=== PATIENT | male | born 1995 | race Hispanic/Latino ===

== ENCOUNTER 2022-10-24 23:03 | Emergency (ER) | payer SELFPAY ==
--- OUTSIDE RECORDS SUMMARY | 2022-10-24 23:07 | XMS REPORT | Continuity of Care Document ---
:1995 Author Organization [facility] t Address [address] [place] [address] [address] [place] [address] Care Team Providers Name Role Phone PCP, PATIENT DOES NOT HAVE A Primary Care Physician UnavailJOSY Whatley Attending Clinician Unavailable Josy Freitas Attending Clinician MANUEL GRANDE Attending Clinician Unavailable Manuel Grande MD Attending Clinician AMBER SINGH Attending Clinician Unavailable Amber Singh DO Attending Clinician MANUEL GRANDE Admitting Clinician Unavailable Payers Payer Name Policy Type Policy Number Effective Date Expiration Date Angela cole WEBTPA [id number] 2021 00:00:00 Problems Condition Condition Condition Status Onset Resolution Last Treating Co mments Source Name Details Category Date Date Treatment Clinician Date No known No known Disease Unive rs active active ity of problems problems [facility] Allergies, Adverse Reactions, Alerts Allergy Allergy Status Severity Reaction(s) Onset Inactive Treating Comm ents Source Name Type Date Date Clinician Steroids Propensi Active (Not ty to -06 Checked) adverse 00:00: reaction 00 to drug NEUROMUS Drug Active Unknown-Cmnt 2012-03 Un selvin CULAR Class 2-09 ity of BLOCKERS 00:00: [place] , 00 Medical STEROIDA Branch L Neuromus Propensi Active Unknown - 2012-03 Uni vers cular ty to See comments 2-09 ity of Blockers adverse 00:00: [place] , reaction 00 Medical Steroida s Branch l Social History Social Habit Start Date Stop Date Quantity Comments Source Exposure to 2021-11-05 2021-11-15 Not sure [facility] SARS-CoV-2 (event) 00:00:00 16:25:00 Medica l Branch Sex Assigned At [birth year] [facility] y of [place] 00:00:00 00:00:00 Medical Branch Smoking Status Start Date Stop Date Source Tobacco smoking consumption [facility] Medical unknown Branch Medications Ordered Filled Start Stop Current Ordering Indication Dosage Frequency Signature Comments Components Source Medication Medication Date Date Medication? Clinician (SIG) Name Name morpHINE (4 2021- No 4mg 4 mg, Slow Univers mg/mL) 11-14 IV Push, ity of injection 4 09:45: 09:40 [place]CE[place] 1 [place] mg 00 :00 dose, On Medical 11/14/21 Branch at 0445, STAT ketorolac 2021- No 15mg 15 mg, Unive rs (TORADOL) 11-14 Slow IV ity of injection 09:45: 09:39 Push, [place] 15 mg 00 :00 ONCE, 1 Medical dose, On Branch 11/14/21 at 0445, BECKY iohexol 2021- No [id number] 80mL 80 mL, Un selvin (OMNIPAQUE 11-14 Intravenou it y of 350 09:02: 09:02 s, ONCE, 1 [place] BULK-100 00 :00 dose, On Medical mL) 11/14/21 Branch injection at 0415, 80 mL Routine cefTRIAXone 2021- No 1000mg 1,000 mg, Univers (ROCEPHIN) 11-14 IV ity of 1,000 mg in 08:15: 08:56 Piggyback, [place] NaCl 0.9% 00 :31 ONCE, 1 Medical (NS) 50 mL dose, On [facility] h MINI-BAG Wed11/14/21 at 0315, Administer over 30 Minutes, 50 mL
R vern for Anti-Infec tive: Documented Infection< br>Documen lillie Infection Site: Skin / Soft Tissue
Duration of Therapy: Other (see Comments) sulfamethox Yes [id number] 1{tbl} Take 1 Univers azole-trime - tablet by ity of thoprim 00:00: mouth in [place] 800-160 mg 00 the Medical per tablet morning Branch and 1 tablet in the evening. sulfamethox Yes [id number] 1{tbl} Take 1 Univers azole-trime 11-14 tablet by ity of thoprim 00:00: mouth in [place] 800-160 mg 00 the Medical per tablet morning Branch and 1 tablet in the evening. cephALEXin 2021- No [id number] 500mg Take 1 Univers (KEFLEX) 11-14 capsule by ity of 500 mg 00:00: 04:59 mouth 4 [place] capsule 00 :00 (four) Medical times Branch daily for 10 days. cephALEXin 2021- No [id number] 500mg Take 1 Univers (KEFLEX) 11-14 capsule by ity of 500 mg 00:00: 04:59 mouth 4 [place] capsule 00 :00 (four) Medical times Branch daily for 10 days. acetaminoph 2021- No [id number] 1{tbl} Take 1 U nivers en-codeine 11-14 tablet by ity of 300-30 mg 00:00: 04:59 mouth [place] tablet 00 :00 every 6 Medical (six) Branch hours as needed for Pain (scale 1-3) for up to 7 days. Indication s: acute pain acetaminoph 2021- No 4647 1{tbl} Take 1 U nivers en-codeine 11-14 tablet by ity of 300-30 mg 00:00: 04:59 mouth [place] tablet 00 :00 every 6 Medical (six) Branch hours as needed for Pain (scale 1-3) for up to 7 days. Indication s: acute pain TAKE 1 2021-0 No TABLET BY 8-26 MOUTH ONCE 00:00: DAILY 00 take 1 2022-0 No 5005 tablet by 8-12 mouth twice 00:00: a day 00 TAKE 1 2-0 No 34360 TABLET 8-12 DAILY. 00:00: 00 take 1 2022-0 No 5005 tablet by 8-12 mouth twice 00:00: a day 00 TAKE 1 2022-0 [place] [id number] TABLET 8-12 DAILY. 00:00: 00 Dose 2022-0 No Unknown 8-12 00:00: 00 TAKE 1 2022-0 [place] [id number] TABLET 8-12 DAILY. 00:00: 00 Tamiflu 75 2018-0 No 1mg mg capsule 1-05 00:00: 00 Tamiflu 75 2018-0 No 1mg mg capsule 1 00:00: 00 Tamiflu 75 2018-0 No 1mg mg capsule 05 00:00: 00 loratadine 2017-0 No 1mg 10 mg 3-06 tablet 00:00: 00 loratadine 2017-0 No 1mg 10 mg 3-06 tablet 00:00: 00 amoxicillin 2017-0 No 1mg 500 mg 3-06 capsule 00:00: 00 Bromfed DM 2017-0 No 10mg/5 2 mg-30 3-06 mL mg-10 mg/5 00:00: mL syrup 00 amoxicillin 2017-0 No 1mg 500 mg 3-06 capsule 00:00: 00 Bromfed DM 2017-0 No 10mg/5 2 mg-30 3-06 mL mg-10 mg/5 00:00: mL syrup 00 loratadine 2017-0 No 1mg 10 mg 3-06 tablet 00:00: 00 amoxicillin 2017-0 No 1mg 500 mg 3-06 capsule 00:00: 00 Bromfed DM 2017-0 No 10mg/5 2 mg-30 3-06 mL mg-10 mg/5 00:00: mL syrup 00 erythromyci 2012-03 Yes .5[in_u Place 0.5 Univers n 2-09 s] Inches in ity of (ILOTYCIN) 00:00: left eye 4 [place] 5 mg/gram 00 (four) Medical (0.5 %) times Branch ophthalmic daily. ointment Continue until you follow up with eye doctor. erythromyci 2012-03 Yes .5[in_u Place 0.5 Univers n 2-09 s] Inches in ity of (ILOTYCIN) 00:00: left eye 4 [place] 5 mg/gram 00 (four) Medical (0.5 %) times Branch ophthalmic daily. ointment Continue until you follow up with eye doctor. erythromyci 2012-03 Yes .5[in_u Place 0.5 Univers n 2-09 s] Inches in ity of (ILOTYCIN) 00:00: left eye 4 [place] 5 mg/gram 00 (four) Medical (0.5 %) times Branch ophthalmic daily. ointment Continue until you follow up with eye doctor. Vital Signs Vital Name Observation Time Observation Value Comments Source Systolic blood 2021-11-15 21:28:00 127 mm[Hg] Univer sity of [facility] Diastolic blood 2021-11-15 21:28:00 69 mm[Hg] [facility] Heart rate 2021-11-15 21:28:00 106 /min [facility] Body temperature 2021-11-15 21:28:00 37.61 [facility] Res[facility] rate 2021-11-15 21:28:00 16 /min [facility] Body height 2021-11-15 21:28:00 162.6 cm [facility] Body weight 2021-11-15 21:28:00 141.976 kg [facility] BMI 2021-11-15 21:28:00 53.73 kg/m2 [facility] Oxygen saturation in 2021-11-15 21:28:00 96 /min University of Arterial blood by [facility] Pulse oximetry Branch Systolic blood 2021 10:11:00 150 mm[Hg] Univer sity of [facility] Diastolic blood 2021 10:11:00 90 mm[Hg] Unive rsity of [facility] Heart rate 2021 10:11:00 94 /min [facility] Respiratory rate 2021 10:11:00 18 /min [facility] Oxygen saturation in 2021 10:11:00 94 /min University Arterial blood by [place] [facility] Pulse oximetry Branch Body temperature 2021 05:10:00 37.56 Shazia Univ ersity of [facility] Body weight 2021 05:10:00 143.79 kg Universi ty [facility] BMI 2021 05:10:00 54.41 kg/m2 Universi ty [facility] Systolic blood 2021-10-15 04:46:00 150 mm[Hg] Univer sity of pressure [facility] Diastolic blood 2021-10-15 04:46:00 107 mm[Hg] Unive rsity of [facility] Heart rate 2021-10-15 04:46:00 95 /min Universi ty [facility] Body temperature 2021-10-15 04:46:00 37.5 Shazia [facility] Body height 2021-10-15 04:46:00 162.6 cm Universi ty [facility] Body weight 2021-10-15 04:46:00 144.697 kg Universi ty [facility] BMI 2021-10-15 04:46:00 54.76 kg/m2 [facility] Oxygen saturation in 2021-10-15 04:46:00 97 /min [facility] Arterial blood by [facility] Pulse oximetry Branch BP Systolic 2021-11-13 13:26:00 117 mm[Hg] BP Diastolic 2021-11-13 13:26:00 82 mm[Hg] Weight Measured 2021-11-13 13:26:00 317.80 pounds Height Measured 2021-11-13 13:26:00 62.50 inches Body Temperature 2021-11-13 13:26:00 97.80 degrees Heart Rate 2021-11-13 13:26:00 91.00 /min Respiratory Rate 2021-11-13 13:26:00 16.00 /min BP Systolic 2021-10-24 16:01:00 114 mm[Hg] BP Diastolic 2021-10-24 16:01:00 79 mm[Hg] Weight Measured 2021-10-24 16:01:00 325.20 pounds Height Measured 2021-10-24 16:01:00 62.50 inches Body Temperature 2021-10-24 16:01:00 97.70 degrees Heart Rate 2021-10-24 16:01:00 82.00 /min Respiratory Rate 2021-10-24 16:01:00 BP Systolic 2021-10-17 14:09:00 162 mm[Hg] BP Diastolic 2021-10-17 14:09:00 101 mm[Hg] Weight Measured 2021-10-17 14:09:00 322.00 pounds Height Measured 2021-10-17 14:09:00 62.50 inches Body Temperature 2021-10-17 14:09:00 98.20 degrees Heart Rate 2021-10-17 14:09:00 87.00 /min Respiratory Rate 2021-10-17 14:09:00 BP Systolic 2017-03-12 15:16:00 141 mm[Hg] BP Diastolic 2017-03-12 15:16:00 78 mm[Hg] Weight Measured 2017-03-12 15:16:00 339.00 pounds Height Measured 2017-03-12 15:16:00 62.50 inches Body Temperature 2017-03-12 15:16:00 98.40 degrees Heart Rate 2017-03-12 15:16:00 86.00 /min Respiratory Rate 2017-03-12 15:16:00 16.00 /min BP Systolic 2016-05-11 16:39:00 139 mm[Hg] BP Diastolic 2016-05-11 16:39:00 83 mm[Hg] Weight Measured 2016-05-11 16:39:00 332.60 pounds Height Measured 2016-05-11 16:39:00 62.50 inches Body Temperature 2016-05-11 16:39:00 98.90 degrees Heart Rate 2016-05-11 16:39:00 91.00 /min Respiratory Rate 2016-05-11 16:39:00 Procedures Procedure Date / Time Performed Performing Clinician [facility] e CONSENT/REFUSAL FOR 2021-11-15 21:20:33 Doctor Unassigned, No Un [facility] DIAGNOSIS AND Name Medical Branch TREATMENT CT SOFT TISSUE NECK W 2021 09:08:29 Manuel Grande [facility] CONTRAST Medical Branch COVID-19 (ID NOW 2021 08:28:00 Manuel Grande [facility] RAPID TESTING) Medical Branch COMP. METABOLIC PANEL 2021 08:26:00 Manuel Grande [facility] ([id number]) Medical Branch CBC WITH DIFF 2021 08:26:00 Manuel Grande [facility] [place] Medical Branch CONSENT/REFUSAL FOR 2021 05:13:27 Doctor Unassigned, No Un [facility] [place] DIAGNOSIS AND Name Medical Branch TREATMENT POCT GLUCOSE 2021-10-15 04:51:00 Amber Singh [facility] (AUTOMATED) Medical Branch NOTICE OF PRIVACY 2021-10-15 04:43:48 Doctor Unassigned, No Univ ersity of [place] PRACTICES Name Medical Branch CONSENT/REFUSAL FOR 2021-10-15 04:43:04 Doctor Unassigned, No Un [facility] [place] DIAGNOSIS AND Name Medical Branch TREATMENT Plan of Care Planned Activity Planned Date Details Comments Source Goal Plan of Care Note [code = 89260-2] Goal Plan of Care Note [code = 22646-8] Goal Plan of Care Note [code = 93412-2] Goal Plan of Care Note [code = 25865-0] Goal Plan of Care Note [code = 78449-2] Goal Plan of Care Note [code = 94872-1] Goal Plan of Care Note [code = 53229-1] Goal Plan of Care Note [code = 33189-3] Goal Plan of Care Note [code = 18612-1] Goal Plan of Care Note [code = 87490-3] Goal Plan of Care Note [code = 44777-0] Goal Plan of Care Note [code = 45520-9] Goal Plan of Care Note [code = 05634-3] Goal Plan of Care Note [code = 41255-6] Goal Plan of Care Note [code = 12118-8] Goal Plan of Care Note [code = 83436-4] Goal Plan of Care Note [code = 53227-8] Goal Plan of Care Note [code = 50515-3] Goal Plan of Care Note [code = 67820-9] Goal Plan of Care Note [code = 20857-1] Goal Plan of Care Note [code = 68310-9] Goal Plan of Care Note [code = 17630-2] Goal Plan of Care Note [code = 58900-1] Goal Plan of Care Note [code = 84018-9] Goal Plan of Care Note [code = 79922-2] Goal Plan of Care Note [code = 77786-0] Goal Plan of Care Note [code = 30088-4] Goal Plan of Care Note [code = 41833-4] Goal Plan of Care Note [code = 98427-9] Goal Plan of Care Note [code = 67209-0] Goal Plan of Care Note [code = 04919-4] Goal Plan of Care Note [code = 79055-8] Goal Plan of Care Note [code = 81250-1] Goal Plan of Care Note [code = 16486-1] Goal Plan of Care Note [code = 32496-8] Goal Plan of Care Note [code = 93381-1] Goal Plan of Care Note [code = 26210-8] Encounters Start End Encounter Admission Attending Care Care Encounter Source Date/Time Date/Time Type Type Clinicians Facility Department ID 2021-12-27 2021-12-27 Outpatient [facility] [id number] Lonnie 09:28:51 09:28:51 1022 F Geoffrey 2021-11-15 2021-11-15 Emergency X ANDREW, [facility] ERT [id number] Univers 16:31:00 17:19:00 JOSY blanca of [facility] 2021-11-15 2021-11-15 Emergency [facility] [id number] Univers 16:31:00 17:19:00 Josy EMANUEL [id number] i ty of [place] 4.2.7.2.686 [facility] [id number] [facility] 084 Branch 2021 2021 Emergency X MANUEL GRANDE [facility] ERT [id number] Univers 00:13:00 05:26:00 ity of [facility] 2021 2021 Emergency Manuel Grande TRAUMA [id number] Univers 00:13:00 05:26:00 W LOWELL 350.1.13.10 it y 4.2.7.2.686 [facility] [id number] [facility] 014 Branch 2021-11-13 2021-11-13 Outpatient [id number] 00:00:00 00:00:00 Visit [id number] [id number] -909b-3dc [id number] 2021-10-24 2021-10-24 Outpatient [id number] 00:00:00 00:00:00 Visit [id number] [id number] -83ab-dec 3ab-dece02 [id number] 2021-10-17 2021-10-17 Outpatient [id number] 00:00:00 00:00:00 Visit d1l8-02hq 6l7-09ww-4 -96d7-522 [id number] 2021-10-14 2021-10-15 Emergency [facility] [id number] Univers 23:53:00 00:02:00 AMBER blanca [facility] 2021-10-14 2021-10-15 Emergency [facility] [id number] [facility] 23:53:00 00:02:00 Amber [facility]EL [facility].13.10 [facility] 4.2.7.2.686 [facility] [id number] [address] Results Test Description Test Time Test Comments Results Result Comments Source ALBUMIN, URINE, RANDOM 2021-12-30 06:55:46 Test Item Value Reference Range Interpretation Comme nts ALBUMIN, URINE, RANDOM (test 1.1 MG/DL NOT ESTAB UNLESS OTHERWISE INDICATED, ALL code = 26032) TESTING [facility] AT[facility] [address] [place] [address] LABORATORY DIRE CTOR: CARMELA PERLA M.D. CLIA NUMBER [id number] [place]. [id number] LIPID [id number] 06:06:01 Test Item Value Reference Range Interpretation Comments CHOLESTEROL (test 154 MG/DL <200 code = 2210) TRIGLYCERIDES (test 64 MG/DL <150 code = 2232) HDL CHOLESTEROL (test 43 MG/DL >39 code = 2220) CALC LDL CHOL (test 96 MG/DL <100 NOTE: C ALCULATED LDL code = 2237) IS BASED ON JAYNE-HERNANDEZ METHOD WHICHINCLUDES ADJUSTABLE TRIGLYCERIDE:VL DL CHOLESTEROL RAT IO.THIS FACTOR VARIES B Y MEASURED TRIGLY CERIDE AND NON-HDLCHOL ESTEROL CONCENTRATIONS WITH INCREASED CALCU LATED LDL SEENIN HIGH ER TRIGLYCERIDE OR LOWER NON-HDL SPECIME NS. FOR MOREINFORMATION , SEE CLIENT ANNOUNCE MENT AT [email or web address] RISK RATIO LDL/HDL 2.23 RATIO <3.55 (test code = 2238) COMPREHENSIVE METABOLIC [id number] 06:06:01 Test Item Value Reference Range Interpretation Comments GLUCOSE (test code = 200 MG/DL 70-99 H 2216) BUN (test code = 11 MG/DL 6-20 2207) CREATININE (test 0.71 MG/DL 0.80-1.40 L code = 221) eGFR (2020 CKD-EPI) 131 >60 (test code = 27363) ML/MIN/1.73 CALC BUN/CREAT (test 15 RATIO 6-28 code = 2235) SODIUM (test code = 144 MEQ/L 047-658 4246) POTASSIUM (test code 5.1 MEQ/L 3.5-5.4 = 2227) CHLORIDE (test code 102 MEQ/L 95-107 = 2214) CARBON DIOXIDE (test 28 MEQ/L 19-31 code = 2206) CALCIUM (test code = 9.8 MG/DL 8.5-10.5 2208) PROTEIN, TOTAL (test 7.0 G/DL 6.1-8.3 code = 2229) ALBUMIN (test code = 4.7 G/DL 3.5-5.2 2200) CALC GLOBULIN (test 2.3 G/DL 1.9-3.7 code = 2240) CALC A/G RATIO (test 2.0 RATIO 1.0-2.6 code = 2234) BILIRUBIN, TOTAL 0.4 MG/DL See_Comment [Automated message] (test code = 2207) The syste m which generated this result transmit lillie reference range : <=1.2. The refe rence range was not u sed to interpret th is result as normal/abnormal . ALKALINE PHOSPHATASE 68 U/L 40-120 (test code = 2204) AST (test code = 24 U/L 9-50 2217) ALT (test code = 43 U/L 5-50 2218) HEMOGLOBIN [id number] 06:36:50 Test Item Value Reference Range Interpretation Comments HEMOGLOBIN A1c (test 8.6 % 4.2-5.6 H AMERIC AN DIABETES code = 28512) ASSOCIATION IDELINES FOR HGB A1C: PREDIABETES/INC REASED RISK . . . . . . . 5.7 -6.4% DIAGNOSIS OF DI ABETES . . . . . . . . . >=6 .5% WITH CONFIRMATION OR APPROPRIATE SYMPTOMS NOTE: ASSAY MAY BE AFFECTED BY HEMOGLOBINOPATH IES (SICKLE CELL ANEMIA, S- C DISEASE, OTHERS) OR JH FICIALLY LOWERED BY DECR EASED RED CELL SURVIVAL ( HEMOLYTIC ANEMIAS, BLOOD LOSS, ETC.). CONSIDER ALTERN ATE TESTING OR LABORATORY C ONSULTATION. CBC W/AUTO DIFF WITH [id number] 04:23:23 Test Item Value Reference Range Interpretation Comments WBC (test code = 11.1 K/UL 3.5-11.0 H 1001) RBC (test code = 5.43 M/UL 4.50-6.10 1002) HEMOGLOBIN (test code 15.6 G/DL 13.5-17.0 = 1003) HEMATOCRIT (test code 49.6 % 40.0-51.0 = 1004) MCV (test code = 91.3 fL 80.0-99.0 1005) MCH (test code = 28.7 PG 25.0-33.0 1006) MCHC (test code = 31.5 G/DL 31.0-36.0 1007) RDW (test code = 12.3 % 11.5-15.0 1038) NEUTROPHILS (test 68.1 % code = 1008) LYMPHOCYTES (test 23.1 % code = 1010) MONOCYTES (test code 6.3 % = 1011) EOSINOPHILS (test 1.9 % code = 1012) BASOPHILS (test code 0.3 % = 1013) IMMATURE GRANULOCYTES 0.3 % (test code = 1036) NUCLEATED RBCS (test 0.0 /100 WBC'S See_Comment [Aut omated code = 1065) message] The sy stem which generated this result transmitted reference range : 0.0. The refere nce range was not u sed to interpret th is result as normal/abnormal . PLATELET COUNT (test 293 K/UL 130-400 code = 1015) ABSOLUTE NEUTROPHILS 7.54 K/UL 1.50-7.50 H (test code = 1066) ABSOLUTE LYMPHOCYTES 2.56 K/UL 1.00-4.00 (test code = 1067) ABSOLUTE MONOCYTES 0.70 K/UL 0.20-1.00 (test code = 1068) ABSOLUTE EOSINOPHILS 0.21 K/UL 0.00-0.50 (test code = 1040) ABSOLUTE BASOPHILS 0.03 K/UL 0.00-0.20 (test code = 1069) ABS IMMATURE 0.03 K/UL 0.00-0.10 GRANULOCYTES (test code = 1020) ABS NUCLEATED RBCS 0.00 K/UL 0.00-0.11 (test code = 59242) CBC WITH [id number] 09:05:00 Test Item Value Reference Range Interpretation Comments WBC (test code = See_Comment H [Automated 0577-2) message] The system which generated this result transmit lillie reference range : 4.20 - 10.70 10*3/?L. The reference range was not used to interpret this result as normal/abnormal . RBC (test code = See_Comment [Automated 760-8) message] The system which generated this result transmit lillie reference range : 4.26 - 5.52 10*6/?L. The reference range was not used to interpret this result as normal/abnormal . HGB (test code = 15.5 g/dL 12.2-16.4 718-7) HCT (test code = 44.6 % 38.4-49.3 4544-3) MCV (test code = 86.6 fL 81.7-95.6 787-2) MCH (test code = 30.1 pg 26.1-32.7 785-6) MCHC (test code = 34.8 g/dL 31.2-35 786-4) RDW-SD (test code = 38.3 fL 38.5-51.6 L 77406-3) RDW-CV (test code = 11.9 % 12.1-15.4 L 788-0) PLT (test code = See_Comment [Automated 537-3) message] The system which generated this result transmit lillie reference range : 150 - 328 10*3/ ?L. The reference range was not u sed to interpret th is result as normal/abnormal . MPV (test code = 11.6 fL 9.8-13 91748-7) NRBC/100 WBC (test See_Comment [Automat ed code = 1322123355) message] The system which generated this result transmit lillie reference range : 0.0 - 10.0 /100 WBCs. The reference range was not used to interpret this result as normal/abnormal . NRBC x10^3 (test code See_Comment [Auto mated = 8217647023) message] The system which generated this result transmit lillie reference range : 10*3/?L. The reference range was not used to interpret this result as normal/abnormal . GRAN MAT (NEUT) % 79.8 % (test code = 770-8) IMM GRAN % (test code 0.40 % = 3802484105) LYMPH % (test code = 11.8 % 736-9) MONO % (test code = 6.3 % 5905-5) EOS % (test code = 1.4 % 713-8) BASO % (test code = 0.3 % 706-2) GRAN MAT x10^3(ANC) 15.65 10*3/uL 1.99-6.95 H (test code = 5458941529) IMM GRAN x10^3 (test 0.08 10*3/uL 0-0.06 H code = 5179086503) LYMPH x10^3 (test code 2.31 10*3/uL 1.09-3.23 = 731-0) MONO x10^3 (test code 1.23 10*3/uL 0.36-1.02 H = 742-7) EOS x10^3 (test code = 0.27 10*3/uL 0.06-0.53 711-2) BASO x10^3 (test code 0.05 10*3/uL 0.01-0.09 = 704-7) Lab Interpretation Abnormal (test code = 44712-9) [facility]. METABOLIC PANEL (08100)2021 08:49:12 Test Item Value Reference Range Interpretation Comments NA (test code = 135 mmol/L 135-145 2321200272) K (test code = 4.1 mmol/L 3.5-5 4003400972) CL (test code = 101 mmol/L 98-108 8673120468) CO2 TOTAL (test code = 28 mmol/L 23-31 6133044728) AGAP (test code = 2-16 9702957296) BUN (test code = 13 mg/dL 7-23 4790555671) GLUCOSE (test code = 212 mg/dL 70-110 H 2130999164) CREATININE (test code = 0.66 mg/dL 0.6-1.25 7729056630) TOTAL BILI (test code = 0.6 mg/dL 0.1-1.5 3450725438) CALCIUM (test code = 9.1 mg/dL 8.6-10.6 8713816771) T PROTEIN (test code = 7.2 g/dL 6.3-8.2 2610608662) ALBUMIN (test code = 4.4 g/dL 3.5-5 7519836462) ALK PHOS (test code = 84 U/L 34-122 0900210496) ALTv (test code = 41 U/L 5-50 2-6) AST(SGOT) (test code = 22 U/L 13-40 8505865717) eGFR (test code = mL/min/1.73m2 6408624280) EDENILSON (test code = EDENILSON) Association of Glomerular Filtration Rate (GFR) and Staging of Kidney Disease* + --+ --+ ------+| GFR (mL/min/1.73 m2) ?| With Kidney Damage ?| ?Without Kidney Damage+ --------+ --------+ +| ?>90 ?| ?Stage one ?| ? Normal ?+ ---+ ---+ -------+| ?60-89 ?| ?Stage two ?| ? Decreased GFR ? + --+ --+ ------+| ?30-59 ?| ?Stage three ?| ? Stage three ? + --+ --+ ------+| ?15-29 ?| ?Stage four ? | ? Stage four ?+ ---+ ---+ -------+| ?<15 (or dialysis) ? ?| ?Stage five ? | ? Stage five ?+ ---+ ---+ -------+ *Each stage assumes the associated GFR level has been in effect for at least three months. ?Stages 1 to 5, with or without kidney disease, indicate chronic kidney disease. Notes: Determination of stages one and two (with eGFR >59mL/min/1.73 m2) requires estimation of kidney damage for at least three months as defined by structural or functional abnormalities of the kidney, manifested by either:Pathological abnormalities or Markers of kidney damage (including abnormalities in the composition of the blood or urine or abnormalities in imaging tests). Lab Interpretation Abnormal (test code = 54622-4) [id number] 09:03:24 Test Item Value Reference Range Interpretation Comments VITAMIN B-12 (test code = 2840) 370 PG/ML 200-950 VITAMIN D, 25 [id number] 06:22:29 Test Item Value Reference Range Interpretation Comments VITAMIN D, 25 OH 20 NG/ML SEE BELOW L NOTE: 25-H YDROXYVITAMIN D (test code = 4958) ASSAY INC LUDES 25-HYDROXYVITAM IN D2 AND D3. METHODOLOGY IS CHEMILUMINESCEN T IMMUNOASSAY. INTERPRETIVE RA NGES PEDIATRIC (<17 YEARS) . . . . . . . . . . . NG/ML 20-100ADULT: IN SUFFICIENT . . . . . . . . . . . . . . NG/ML <20 SUBOP TIMAL . . . . . . . . . . . . . . . NG/ML 20-29 OPT IMAL . . . . . . . . . . . . . . . . . NG/ML 30-100 U NLESS OTHERWISE INDIC ATED, ALL TESTING PERFORM ED ATCLINICAL PATH [facility]LOGY LABORATORIES, [facility]. [address] [place] [id number] LABORATORY DIRE CTOR: Montez JAIMES. CLIA NUMBER [id number] CAP ACCREDITATION N O. [id number] LIPID [id number] 05:50:16 Test Item Value Reference Range Interpretation Comments CHOLESTEROL (test 193 MG/DL <200 code = 2210) TRIGLYCERIDES (test 84 MG/DL <150 code = 2232) HDL CHOLESTEROL (test 46 MG/DL >39 code = 2220) CALC LDL CHOL (test 129 MG/DL <100 H NOTE: C ALCULATED LDL code = 2237) IS BASED ON JAYNE-HERNANDEZ METHOD WHICHINCLUDES ADJUSTABLE TRIGLYCERIDE:VL DL CHOLESTEROL RAT IO.THIS FACTOR VARIES B Y MEASURED TRIGLY CERIDE AND NON-HDLCHOL ESTEROL CONCENTRATIONS WITH INCREASED CALCU LATED LDL SEENIN HIGH ER TRIGLYCERIDE OR LOWER NON-HDL SPECIME NS. FOR MOREINFORMATION , SEE CLIENT ANNOUNCE MENT AT [email or web address] RISK RATIO LDL/HDL 2.80 RATIO <3.55 (test code = 2238) COMPREHENSIVE METABOLIC [id number] 05:50:16 Test Item Value Reference Range Interpretation Comments GLUCOSE (test code = 209 MG/DL 70-99 H 2216) BUN (test code = 14 MG/DL 6-20 2207) CREATININE (test 0.77 MG/DL 0.80-1.40 L code = 2214) eGFR (2020 CKD-EPI) 129 >60 (test code = 08399) ML/MIN/1.73 CALC BUN/CREAT (test 18 RATIO 6-28 code = 2235) SODIUM (test code = 143 MEQ/L 670-136 5209) POTASSIUM (test code 4.8 MEQ/L 3.5-5.4 = 2227) CHLORIDE (test code 103 MEQ/L 95-107 = 221) CARBON DIOXIDE (test 28 MEQ/L 19-31 code = 2206) CALCIUM (test code = 9.9 MG/DL 8.5-10.5 2208) PROTEIN, TOTAL (test 7.1 G/DL 6.1-8.3 code = 2229) ALBUMIN (test code = 4.5 G/DL 3.5-5.2 2200) CALC GLOBULIN (test 2.6 G/DL 1.9-3.7 code = 2240) CALC A/G RATIO (test 1.7 RATIO 1.0-2.6 code = 2234) BILIRUBIN, TOTAL 0.4 MG/DL See_Comment [Automated message] (test code = 2207) The syste m which generated this result transmit lillie reference range : <=1.2. The refe rence range was not u sed to interpret th is result as normal/abnormal . ALKALINE PHOSPHATASE 79 U/L 40-121 (test code = 2204) AST (test code = 26 U/L 9-50 2217) ALT (test code = 71 U/L 5-50 H 2218) HEMOGLOBIN [id number] 03:58:35 Test Item Value Reference Range Interpretation Comments HEMOGLOBIN A1c (test 9.9 % 4.2-5.6 H AMERIC AN DIABETES code = 14469) ASSOCIATION IDELINES FOR HGB A1C: PREDIABETES/INC REASED RISK . . . . . . . 5.7 -6.4% DIAGNOSIS OF DI ABETES . . . . . . . . . >=6 .5% WITH CONFIRMATION OR APPROPRIATE SYMPTOMS NOTE: ASSAY MAY BE AFFECTED BY HEMOGLOBINOPATH IES (SICKLE CELL ANEMIA, S- C DISEASE, OTHERS) OR JH FICIALLY LOWERED BY DECR EASED RED CELL SURVIVAL ( HEMOLYTIC ANEMIAS, BLOOD LOSS, ETC.). CONSIDER ALTERN ATE TESTING OR LABORATORY C ONSULTATION. CBC W/AUTO DIFF WITH [id number] 02:19:24 Test Item Value Reference Range Interpretation Comments WBC (test code = 12.3 K/UL 3.5-11.0 H 1001) RBC (test code = 5.32 M/UL 4.50-6.10 1002) HEMOGLOBIN (test code 16.0 G/DL 13.5-17.0 = 1003) HEMATOCRIT (test code 46.6 % 40.0-51.0 = 1004) MCV (test code = 87.6 fL 80.0-99.0 1005) MCH (test code = 30.1 PG 25.0-33.0 1006) MCHC (test code = 34.3 G/DL 31.0-36.0 1007) RDW (test code = 11.8 % 11.5-15.0 1038) NEUTROPHILS (test 64.2 % code = 1008) LYMPHOCYTES (test 27.1 % code = 1010) MONOCYTES (test code 6.3 % = 1011) EOSINOPHILS (test 1.9 % code = 1012) BASOPHILS (test code 0.3 % = 1013) IMMATURE GRANULOCYTES 0.2 % (test code = 1036) NUCLEATED RBCS (test 0.0 /100 WBC'S See_Comment [Aut omated code = 1065) message] The sy stem which generated this result transmitted reference range : 0.0. The refere nce range was not u sed to interpret th is result as normal/abnormal . PLATELET COUNT (test 301 K/UL 130-400 code = 1015) ABSOLUTE NEUTROPHILS 7.88 K/UL 1.50-7.50 H (test code = 1066) ABSOLUTE LYMPHOCYTES 3.33 K/UL 1.00-4.00 (test code = 1067) ABSOLUTE MONOCYTES 0.78 K/UL 0.20-1.00 (test code = 1068) ABSOLUTE EOSINOPHILS 0.23 K/UL 0.00-0.50 (test code = 1040) ABSOLUTE BASOPHILS 0.04 K/UL 0.00-0.20 (test code = 1069) ABS IMMATURE 0.03 K/UL 0.00-0.10 GRANULOCYTES (test code = 1020) ABS NUCLEATED RBCS 0.00 K/UL 0.00-0.11 (test code = 33053) COMPREHENSIVE METABOLIC [id number] 00:00:00 Test Item Value Reference Range Interpretation Comments GLUCOSE (test code = 2217) 209 MG/DL BUN (test code = 2208) 14 MG/DL CREATININE (test code = 2214) 0.77 MG/DL eGFR (2020 CKD-EPI) (test 129 ML/MIN/1.73 code = 66544) CALC BUN/CREAT (test code = 18 RATIO 2234) SODIUM (test code = 2231) 143 MEQ/L POTASSIUM (test code = 2228) 4.8 MEQ/L CHLORIDE (test code = 2215) 103 MEQ/L CARBON DIOXIDE (test code = 28 MEQ/L 2205) CALCIUM (test code = 2209) 9.9 MG/DL PROTEIN, TOTAL (test code = 7.1 G/DL 2228) ALBUMIN (test code = 2201) 4.5 G/DL CALC GLOBULIN (test code = 2.6 G/DL 2239) CALC A/G RATIO (test code = 1.7 RATIO 2233) BILIRUBIN, TOTAL (test code = 0.4 MG/DL 2206) ALKALINE PHOSPHATASE (test 79 U/L code = 2204) AST (test code = 2218) 26 U/L ALT (test code = 2219) 71 U/L HEMOGLOBIN [id number] 00:00:00 Test Item Value Reference Range Interpretation Comments HEMOGLOBIN A1c (test code = 65909) 9.9 % HEMOGLOBIN [id number] 00:00:00 Test Item Value Reference Range Interpretation Comments HEMOGLOBIN A1c (test code = 13372) 9.9 % HEMOGLOBIN [id number] 00:00:00 Test Item Value Reference Range Interpretation Comments HEMOGLOBIN A1c (test code = 19559) 9.9 % VITAMIN [id number] 00:00:00 Test Item Value Reference Range Interpretation Comments VITAMIN B-12 (test code = 2840) 370 PG/ML VITAMIN [id number] 00:00:00 Test Item Value Reference Range Interpretation Comments VITAMIN B-12 (test code = 2840) 370 PG/ML VITAMIN [id number] 00:00:00 Test Item Value Reference Range Interpretation Comments VITAMIN B-12 (test code = 2840) 370 PG/ML VITAMIN D, 25 [id number] 00:00:00 Test Item Value Reference Range Interpretation Comments VITAMIN D, 25 OH (test code = 4958) 20 NG/ML VITAMIN D, 25 [id number] 00:00:00 Test Item Value Reference Range Interpretation Comments VITAMIN D, 25 OH (test code = 4958) 20 NG/ML LIPID [id number] 00:00:00 Test Item Value Reference Range Interpretation Comments CHOLESTEROL (test code = 2210) 193 MG/DL TRIGLYCERIDES (test code = 2232) 84 MG/DL HDL CHOLESTEROL (test code = 2220) 46 MG/DL CALC LDL CHOL (test code = 2237) 129 MG/DL RISK RATIO LDL/HDL (test code = 2.80 RATIO 2238) LIPID [id number] 00:00:00 Test Item Value Reference Range Interpretation Comments CHOLESTEROL (test code = 2210) 193 MG/DL TRIGLYCERIDES (test code = 2232) 84 MG/DL HDL CHOLESTEROL (test code = 2220) 46 MG/DL CALC LDL CHOL (test code = 2237) 129 MG/DL RISK RATIO LDL/HDL (test code = 2.80 RATIO 2238) CBC W/AUTO [id number] 00:00:00 Test Item Value Reference Range Interpretation Comments WBC (test code = 1001) 12.3 K/UL RBC (test code = 1002) 5.32 M/UL HEMOGLOBIN (test code = 1003) 16.0 G/DL HEMATOCRIT (test code = 1004) 46.6 % MCV (test code = 1005) 87.6 fL MCH (test code = 1006) 30.1 PG MCHC (test code = 1007) 34.3 G/DL RDW (test code = 1038) 11.8 % NEUTROPHILS (test code = 1008) 64.2 % LYMPHOCYTES (test code = 1010) 27.1 % MONOCYTES (test code = 1011) 6.3 % EOSINOPHILS (test code = 1012) 1.9 % BASOPHILS (test code = 1013) 0.3 % IMMATURE GRANULOCYTES (test 0.2 % code = 1036) NUCLEATED RBCS (test code = 0.0 /100WBC'S 1065) PLATELET COUNT (test code = 301 K/UL 1015) ABSOLUTE NEUTROPHILS (test code 7.88 K/UL = 1066) ABSOLUTE LYMPHOCYTES (test code 3.33 K/UL = 1067) ABSOLUTE MONOCYTES (test code = 0.78 K/UL 1068) ABSOLUTE EOSINOPHILS (test code 0.23 K/UL = 1040) ABSOLUTE BASOPHILS (test code = 0.04 K/UL 1069) ABS IMMATURE GRANULOCYTES (test 0.03 K/UL code = 1020) ABS NUCLEATED RBCS (test code = 0.00 K/UL 54449) CBC W/AUTO [id number] 00:00:00 Test Item Value Reference Range Interpretation Comments WBC (test code = 1001) 12.3 K/UL RBC (test code = 1002) 5.32 M/UL HEMOGLOBIN (test code = 1003) 16.0 G/DL HEMATOCRIT (test code = 1004) 46.6 % MCV (test code = 1005) 87.6 fL MCH (test code = 1006) 30.1 PG MCHC (test code = 1007) 34.3 G/DL RDW (test code = 1038) 11.8 % NEUTROPHILS (test code = 1008) 64.2 % LYMPHOCYTES (test code = 1010) 27.1 % MONOCYTES (test code = 1011) 6.3 % EOSINOPHILS (test code = 1012) 1.9 % BASOPHILS (test code = 1013) 0.3 % IMMATURE GRANULOCYTES (test 0.2 % code = 1036) NUCLEATED RBCS (test code = 0.0 /100WBC'S 1065) PLATELET COUNT (test code = 301 K/UL 1015) ABSOLUTE NEUTROPHILS (test code 7.88 K/UL = 1066) ABSOLUTE LYMPHOCYTES (test code 3.33 K/UL = 1067) ABSOLUTE MONOCYTES (test code = 0.78 K/UL 1068) ABSOLUTE EOSINOPHILS (test code 0.23 K/UL = 1040) ABSOLUTE BASOPHILS (test code = 0.04 K/UL 1069) ABS IMMATURE GRANULOCYTES (test 0.03 K/UL code = 1020) ABS NUCLEATED RBCS (test code = 0.00 K/UL 25381) CBC W/AUTO [id number] 00:00:00 Test Item Value Reference Range Interpretation Comments WBC (test code = 1001) 12.3 K/UL RBC (test code = 1002) 5.32 M/UL HEMOGLOBIN (test code = 1003) 16.0 G/DL HEMATOCRIT (test code = 1004) 46.6 % MCV (test code = 1005) 87.6 fL MCH (test code = 1006) 30.1 PG MCHC (test code = 1007) 34.3 G/DL RDW (test code = 1038) 11.8 % NEUTROPHILS (test code = 1008) 64.2 % LYMPHOCYTES (test code = 1010) 27.1 % MONOCYTES (test code = 1011) 6.3 % EOSINOPHILS (test code = 1012) 1.9 % BASOPHILS (test code = 1013) 0.3 % IMMATURE GRANULOCYTES (test 0.2 % code = 1036) NUCLEATED RBCS (test code = 0.0 /100WBC'S 1065) PLATELET COUNT (test code = 301 K/UL 1015) ABSOLUTE NEUTROPHILS (test code 7.88 K/UL = 1066) ABSOLUTE LYMPHOCYTES (test code 3.33 K/UL = 1067) ABSOLUTE MONOCYTES (test code = 0.78 K/UL 1068) ABSOLUTE EOSINOPHILS (test code 0.23 K/UL = 1040) ABSOLUTE BASOPHILS (test code = 0.04 K/UL 1069) ABS IMMATURE GRANULOCYTES (test 0.03 K/UL code = 1020) ABS NUCLEATED RBCS (test code = 0.00 K/UL 93808) COMPREHENSIVE METABOLIC [id number] 00:00:00 Test Item Value Reference Range Interpretation Comments GLUCOSE (test code = 2217) 209 MG/DL BUN (test code = 2208) 14 MG/DL CREATININE (test code = 2214) 0.77 MG/DL eGFR (2020 CKD-EPI) (test 129 ML/MIN/1.73 code = 46662) CALC BUN/CREAT (test code = 18 RATIO 2235) SODIUM (test code = 2231) 143 MEQ/L POTASSIUM (test code = 2228) 4.8 MEQ/L CHLORIDE (test code = 2215) 103 MEQ/L CARBON DIOXIDE (test code = 28 MEQ/L 2206) CALCIUM (test code = 2209) 9.9 MG/DL PROTEIN, TOTAL (test code = 7.1 G/DL 2229) ALBUMIN (test code = 2201) 4.5 G/DL CALC GLOBULIN (test code = 2.6 G/DL 2240) CALC A/G RATIO (test code = 1.7 RATIO 2234) BILIRUBIN, TOTAL (test code = 0.4 MG/DL 2206) ALKALINE PHOSPHATASE (test 79 U/L code = 2204) AST (test code = 2218) 26 U/L ALT (test code = 2219) 71 U/L COMPREHENSIVE METABOLIC [id number] 00:00:00 Test Item Value Reference Range Interpretation Comments GLUCOSE (test code = 2217) 209 MG/DL BUN (test code = 2208) 14 MG/DL CREATININE (test code = 2214) 0.77 MG/DL eGFR (2020 CKD-EPI) (test 129 ML/MIN/1.73 code = 48774) CALC BUN/CREAT (test code = 18 RATIO 2235) SODIUM (test code = 2231) 143 MEQ/L POTASSIUM (test code = 2228) 4.8 MEQ/L CHLORIDE (test code = 2215) 103 MEQ/L CARBON DIOXIDE (test code = 28 MEQ/L 2205) CALCIUM (test code = 2209) 9.9 MG/DL PROTEIN, TOTAL (test code = 7.1 G/DL 2228) ALBUMIN (test code = 2201) 4.5 G/DL CALC GLOBULIN (test code = 2.6 G/DL 2240) CALC A/G RATIO (test code = 1.7 RATIO 2234) BILIRUBIN, TOTAL (test code = 0.4 MG/DL 2206) ALKALINE PHOSPHATASE (test 79 U/L code = 2204) AST (test code = 2218) 26 U/L ALT (test code = 2219) 71 U/L HEMOGLOBIN [id number] 00:00:00 Test Item Value Reference Range Interpretation Comments HEMOGLOBIN A1c (test code = 00606) 9.9 % HEMOGLOBIN [id number] 00:00:00 Test Item Value Reference Range Interpretation Comments HEMOGLOBIN A1c (test code = 60499) 9.9 % HEMOGLOBIN [id number] 00:00:00 Test Item Value Reference Range Interpretation Comments HEMOGLOBIN A1c (test code = 81644) 9.9 % VITAMIN [id number] 00:00:00 Test Item Value Reference Range Interpretation Comments VITAMIN B-12 (test code = 2840) 370 PG/ML VITAMIN [id number] 00:00:00 Test Item Value Reference Range Interpretation Comments VITAMIN B-12 (test code = 2840) 370 PG/ML VITAMIN [id number] 00:00:00 Test Item Value Reference Range Interpretation Comments VITAMIN B-12 (test code = 2840) 370 PG/ML VITAMIN D, 25 [id number] 00:00:00 Test Item Value Reference Range Interpretation Comments VITAMIN D, 25 OH (test code = 4958) 20 NG/ML VITAMIN D, 25 [id number] 00:00:00 Test Item Value Reference Range Interpretation Comments VITAMIN D, 25 OH (test code = 4958) 20 NG/ML LIPID [id number] 00:00:00 Test Item Value Reference Range Interpretation Comments CHOLESTEROL (test code = 2210) 193 MG/DL TRIGLYCERIDES (test code = 2232) 84 MG/DL HDL CHOLESTEROL (test code = 2220) 46 MG/DL CALC LDL CHOL (test code = 2237) 129 MG/DL RISK RATIO LDL/HDL (test code = 2.80 RATIO 2238) LIPID [id number] 00:00:00 Test Item Value Reference Range Interpretation Comments CHOLESTEROL (test code = 2210) 193 MG/DL TRIGLYCERIDES (test code = 2232) 84 MG/DL HDL CHOLESTEROL (test code = 2220) 46 MG/DL CALC LDL CHOL (test code = 2237) 129 MG/DL RISK RATIO LDL/HDL (test code = 2.80 RATIO 2238) CBC W/AUTO [id number] 00:00:00 Test Item Value Reference Range Interpretation Comments WBC (test code = 1001) 12.3 K/UL RBC (test code = 1002) 5.32 M/UL HEMOGLOBIN (test code = 1003) 16.0 G/DL HEMATOCRIT (test code = 1004) 46.6 % MCV (test code = 1005) 87.6 fL MCH (test code = 1006) 30.1 PG MCHC (test code = 1007) 34.3 G/DL RDW (test code = 1038) 11.8 % NEUTROPHILS (test code = 1008) 64.2 % LYMPHOCYTES (test code = 1010) 27.1 % MONOCYTES (test code = 1011) 6.3 % EOSINOPHILS (test code = 1012) 1.9 % BASOPHILS (test code = 1013) 0.3 % IMMATURE GRANULOCYTES (test 0.2 % code = 1036) NUCLEATED RBCS (test code = 0.0 /100WBC'S 1065) PLATELET COUNT (test code = 301 K/UL 1015) ABSOLUTE NEUTROPHILS (test code 7.88 K/UL = 1066) ABSOLUTE LYMPHOCYTES (test code 3.33 K/UL = 1067) ABSOLUTE MONOCYTES (test code = 0.78 K/UL 1068) ABSOLUTE EOSINOPHILS (test code 0.23 K/UL = 1040) ABSOLUTE BASOPHILS (test code = 0.04 K/UL 1069) ABS IMMATURE GRANULOCYTES (test 0.03 K/UL code = 1020) ABS NUCLEATED RBCS (test code = 0.00 K/UL 17566) CBC W/AUTO [id number] 00:00:00 Test Item Value Reference Range Interpretation Comments WBC (test code = 1001) 12.3 K/UL RBC (test code = 1002) 5.32 M/UL HEMOGLOBIN (test code = 1003) 16.0 G/DL HEMATOCRIT (test code = 1004) 46.6 % MCV (test code = 1005) 87.6 fL MCH (test code = 1006) 30.1 PG MCHC (test code = 1007) 34.3 G/DL RDW (test code = 1038) 11.8 % NEUTROPHILS (test code = 1008) 64.2 % LYMPHOCYTES (test code = 1010) 27.1 % MONOCYTES (test code = 1011) 6.3 % EOSINOPHILS (test code = 1012) 1.9 % BASOPHILS (test code = 1013) 0.3 % IMMATURE GRANULOCYTES (test 0.2 % code = 1036) NUCLEATED RBCS (test code = 0.0 /100WBC'S 1065) PLATELET COUNT (test code = 301 K/UL 1015) ABSOLUTE NEUTROPHILS (test code 7.88 K/UL = 1066) ABSOLUTE LYMPHOCYTES (test code 3.33 K/UL = 1067) ABSOLUTE MONOCYTES (test code = 0.78 K/UL 1068) ABSOLUTE EOSINOPHILS (test code 0.23 K/UL = 1040) ABSOLUTE BASOPHILS (test code = 0.04 K/UL 1069) ABS IMMATURE GRANULOCYTES (test 0.03 K/UL code = 1020) ABS NUCLEATED RBCS (test code = 0.00 K/UL 47459) CBC W/AUTO [id number] 00:00:00 Test Item Value Reference Range Interpretation Comments WBC (test code = 1001) 12.3 K/UL RBC (test code = 1002) 5.32 M/UL HEMOGLOBIN (test code = 1003) 16.0 G/DL HEMATOCRIT (test code = 1004) 46.6 % MCV (test code = 1005) 87.6 fL MCH (test code = 1006) 30.1 PG MCHC (test code = 1007) 34.3 G/DL RDW (test code = 1038) 11.8 % NEUTROPHILS (test code = 1008) 64.2 % LYMPHOCYTES (test code = 1010) 27.1 % MONOCYTES (test code = 1011) 6.3 % EOSINOPHILS (test code = 1012) 1.9 % BASOPHILS (test code = 1013) 0.3 % IMMATURE GRANULOCYTES (test 0.2 % code = 1036) NUCLEATED RBCS (test code = 0.0 /100WBC'S 1065) PLATELET COUNT (test code = 301 K/UL 1015) ABSOLUTE NEUTROPHILS (test code 7.88 K/UL = 1066) ABSOLUTE LYMPHOCYTES (test code 3.33 K/UL = 1067) ABSOLUTE MONOCYTES (test code = 0.78 K/UL 1068) ABSOLUTE EOSINOPHILS (test code 0.23 K/UL = 1040) ABSOLUTE BASOPHILS (test code = 0.04 K/UL 1069) ABS IMMATURE GRANULOCYTES (test 0.03 K/UL code = 1020) ABS NUCLEATED RBCS (test code = 0.00 K/UL 94424) COMPREHENSIVE METABOLIC [id number] 00:00:00 Test Item Value Reference Range Interpretation Comments GLUCOSE (test code = 2217) 209 MG/DL BUN (test code = 2208) 14 MG/DL CREATININE (test code = 2214) 0.77 MG/DL eGFR (2020 CKD-EPI) (test 129 ML/MIN/1.73 code = 79127) CALC BUN/CREAT (test code = 18 RATIO 2235) SODIUM (test code = 2231) 143 MEQ/L POTASSIUM (test code = 2228) 4.8 MEQ/L CHLORIDE (test code = 2215) 103 MEQ/L CARBON DIOXIDE (test code = 28 MEQ/L 2205) CALCIUM (test code = 2209) 9.9 MG/DL PROTEIN, TOTAL (test code = 7.1 G/DL 2228) ALBUMIN (test code = 220) 4.5 G/DL CALC GLOBULIN (test code = 2.6 G/DL 2239) CALC A/G RATIO (test code = 1.7 RATIO 2233) BILIRUBIN, TOTAL (test code = 0.4 MG/DL 2206) ALKALINE PHOSPHATASE (test 79 U/L code = 2204) AST (test code = 2218) 26 U/L ALT (test code = 2219) 71 U/L POCT GLUCOSE (AUTOMATED)2021-10-15 04:54:46 Test Item Value Reference Range Interpretation Comments POCT GLU (test code = 0622943547) 168 mg/dL 70-110 H Lab Interpretation (test code = Abnormal 24457-4) [facility]"
[2022-10-25] MEDS ORDERED: BUPIVACAINE 0.5% PF 10 ML VIAL ONE (01:33)
[2022-10-25] MEDS ORDERED: HYDROCODONE/APAP 7.5/325 MG TAB ONE (01:33)
[2022-10-25] MEDS ORDERED: LIDOCAINE HCL/EPINEPHRINE 20 ML MDV ONE (01:37)
--- NOTE | 2022-10-25 02:12 | EDPHYS ---
Physician Documentation [facility] Name: Rd Kumar Age: 26 yrs Sex: Male : 1995 Arrival Date: 10/24/2022 Time: 23:03 Bed 9 Private MD: ED Physician Mabel Gomez HPI: 10/25 00:00 This 26 yrs old Male presents to ER via Ambulatory with complaints of Abscess. cp 00:00 The patient presents with an abscess of the coccyx. Description: fluctuant. Onset: The cp symptoms/episode began/occurred gradually, and became worse today. Associated signs and symptoms: Pertinent negatives: discharge, drainage, fever. The patient has experienced similar episodes in the past, a few times, but today's symptoms are worse, more painful. Historical: - Allergies: 10/24 23:37 steroids; pf1 - PMHx: 23:37 pancreatitis medication induced; Hypertensive disorder; Diabetes mellitus; pf1 - PSHx: 23:37 None; pf1 - Immunization history:: Adult Immunizations up to date, Client reports having NOT received the Covid vaccine. Last tetanus immunization: < 10 years ago Flu vaccine is not up to date. - Social history:: Smoking status: Patient denies any tobacco usage or history of. Patient uses alcohol, occasionally. Patient/guardian denies using street drugs. ROS: 10/25 00:05 Constitutional: Negative for body aches, chills, fever, poor PO intake. cp 00:05 Eyes: Negative for injury, pain, redness, and discharge. cp 00:05 Cardiovascular: Negative for chest pain, palpitations. 00:05 Respiratory: Negative for cough, shortness of breath, wheezing. 00:05 Abdomen/GI: Negative for abdominal pain, nausea, vomiting, and diarrhea. 00:05 Skin: Positive for abscess, of the coccyx. 00:05 All other systems are negative. Exam: 00:10 Constitutional: The patient appears in no acute distress, alert, awake, non-toxic, well cp developed, well nourished, obese, uncomfortable. 00:10 Head/Face: Normocephalic, atraumatic. cp 00:10 Chest/axilla: Inspection: normal. 00:10 Cardiovascular: Rate: normal, Rhythm: regular. 00:10 Respiratory: the patient does not display signs of respiratory distress, Respirations: normal, no use of accessory muscles, no retractions, labored breathing, is not present. 00:10 Abdomen/GI: Inspection: obese 00:10 Skin: abscess, that is moderate sized, of the coccyx, with fluctuance, that is marked. Vital Signs: 10/24 23:33 BP 122 / 81; Pulse 95; Resp 16; Temp 98; Pulse Ox 97% ; Weight 147.87 kg; Height 5 ft. pf1 3 in. ; Pain 8/10; 10/25 01:00 BP 115 / 78; Pulse 89; Resp 16; Pulse Ox 99% ; pf1 02:00 BP 130 / 79; Pulse 92; Resp 16; Pulse Ox 100% ; pf1 10/24 23:33 Body Mass Index 57.75 (147.87 kg, 160.02 cm) [facility] 10/24 23:33 Pain Scale: Adult pf1 Procedures: 02:15 I \T\ D: Incision and drainage was performed for an abscess of the pilonidal cyst Prepped with Betadine, Anesthetized with 8 ml's 1% Lidocaine w/ Epi. Incised with #11 blade. Drained large amount purulent fluid. bloody fluid. Packed with iodoform gauze, Dressing: sterile 4x4 gauze, the patient tolerated the procedure well. MDM: 10/24 23:41 Patient medically screened. 10/25 01:00 Differential diagnosis: abscess, cellulitis, sepsis. 02:11 Data reviewed: vital signs, nurses notes. 02:11 I considered the following discharge prescriptions or medication management in the emergency department Medications were administered in the Emergency Department. See MAR. Care significantly affected by the following chronic conditions: Diabetes, Hypertension, Obesity. Counseling: I had a detailed discussion with the patient and/or guardian regarding the historical points, exam findings, and any diagnostic results supporting the discharge/admit diagnosis, the need for outpatient follow up, a general surgeon, to return to the emergency department if symptoms worsen or persist or if there are any questions or concerns that arise at home. Response to treatment: the patient's symptoms have markedly improved after treatment, and as a result, I will discharge patient. 10/25 01:17 Order name: I\T\D Setup; Complete Time: 01:50 10/25 02:11 Order name: Dressing - Wound; Complete Time: 02:45 cp Administered Medications: 01:26 Drug: Hydrocodone-Acetaminophen PO (7.5 mg-325 mg) 1 tabs Route: PO; pf1 02:20 Follow up: Response: No adverse reaction; Marked relief of symptoms; Pain is decreased; pf1 RASS: Alert and Calm (0) 02:00 Drug: Lidocaine-Epinephrine Infiltration -1%: (1:100,000) 20 ml {Note: per kerri pf1 mona,PA.} Volume: 20 ml; Route: Infiltration; 02:50 Follow up: Response: No adverse reaction; Marked relief of symptoms; Pain is decreased pf1 02:00 Drug: Bupivacaine Infiltration (0.5 %) 10 ml {Note: per Mona,PA.} Volume: 10 ml; Route: pf1 Infiltration; 02:50 Follow up: Response: No adverse reaction; Marked relief of symptoms; Pain is decreased pf1 02:30 Drug: Clindamycin PO 600 mg Route: PO; pf1 02:50 Follow up: Response: No adverse reaction pf1 02:30 Drug: Trimethoprim-Sulfamethoxazole PO (160 mg-800 mg (DS) 2 tabs Route: PO; pf1 02:50 Follow up: Response: No adverse reaction pf1 Disposition Summary: 10/25/22 02:12 Discharge Ordered Location: Home cp Problem: new cp Symptoms: have improved cp Condition: Stable cp Diagnosis - Pilonidal cyst with abscess cp Followup: cp - With: Dwight Owen MD - When: 1 - 2 days - Reason: Wound Recheck Discharge Instructions: - Discharge Summary Sheet cp - Incision and Drainage cp - Pilonidal Cyst cp Forms: - Medication Reconciliation Form cp - Thank You Letter cp - Antibiotic Education cp - Prescription Opioid Use cp - Patient Portal Instructions cp - Leadership Thank You Letter cp Prescriptions: - acetaminophen-codeine 300-30 mg Oral tablet - take 2 tablet by ORAL route every 8-10 hours; 12 tablet; Refills: 0, Product cp Selection Permitted - Clindamycin HCl 300 mg Oral Capsule - take 1 capsule by ORAL route every 6 hours for 10 days; 40 capsule; Refills: 0, cp Product Selection Permitted - Ibuprofen 800 mg Oral Tablet - take 1 tablet by ORAL route every 8 hours As needed take with food; 30 tablet; cp Refills: 0, Product Selection Permitted - Bactrim DS 800-160 mg Oral Tablet - take 1 tablet by ORAL route every 12 hours for 10 days; 20 tablet; Refills: 0, cp Product Selection Permitted Signatures: Matteo Dunn PA PA cp Finley, Pamala, RN RN pf1
--- NOTE | 2022-10-25 02:12 | ER ---
Nurse's Notes [facility] Name: Rd Kumar Age: 26 yrs Sex: Male : 1995 Arrival Date: 10/24/2022 Time: 23:03 Bed 9 Private MD: Diagnosis: Pilonidal cyst with abscess Presentation: 10/24 23:33 Chief complaint: Patient states: Patient C/O abscess to sacrum region with pain of pf1 8,onset yesterday. Patient stated history of pilonidal cyst. Coronavirus screen: Vaccine status: Patient reports being unvaccinated. Client denies travel out of the [place] in the last 14 days. At this time, the client does not indicate any symptoms associated with coronavirus-19. Ebola Screen: Patient negative for fever greater than or equal to 101.5 degrees Fahrenheit, and additional compatible Ebola Virus Disease symptoms. Initial Sepsis Screen: Does the patient meet any 2 criteria? HR > 90 bpm. No. Patient's initial sepsis screen is negative. Does the patient have a suspected source of infection? No. Patient's initial sepsis screen is negative. Risk Assessment: Do you want to hurt yourself or someone else? Patient reports no desire to harm self or others. 23:33 Method Of Arrival: Ambulatory pf1 23:33 Acuity: VANESSA 3 pf1 Historical: - Allergies: 23:37 steroids; pf1 - PMHx: 23:37 pancreatitis medication induced; Hypertensive disorder; Diabetes mellitus; pf1 - PSHx: 23:37 None; pf1 - Immunization history:: Adult Immunizations up to date, Client reports having NOT received the Covid vaccine. Last tetanus immunization: < 10 years ago Flu vaccine is not up to date. - Social history:: Smoking status: Patient denies any tobacco usage or history of. Patient uses alcohol, occasionally. Patient/guardian denies using street drugs. Screenin:40 [facility] ED Fall Risk Assessment (Adult) History of falling in the last 3 months, pf1 including since admission No falls in past 3 months (0 pts) Confusion or Disorientation No (0 pts) Intoxicated or Sedated No (0 pts) Impaired Gait No (0 pts) Mobility Assist Device Used No (0 pt) Altered Elimination No (0 pt) Score/Fall Risk Level 0 - 2 = Low Risk Oriented to surroundings, Maintained a safe environment, Educated pt \T\ family on fall prevention, incl call for assistance when getting out of bed, Assessed \T\ reinforced patient's understanding of fall precautions, Provided non-skid footwear, Hourly rounding (assess needs \T\ fall precautionary measures) done, Used ambulatory aids as needed (educated on \T\ assisted with), Used gait belt as appropriate. 23:40 Abuse screen: Denies threats or abuse. Nutritional screening: No deficits noted. pf1 Tuberculosis screening: No symptoms or risk factors identified. Assessment: 23:40 General: Appears in no apparent distress. uncomfortable, obese, well groomed, well pf1 developed, Behavior is calm, cooperative, appropriate for age, quiet. 23:40 Pain: Complains of pain in sacrum region. Neuro: No deficits noted. Level of pf1 Consciousness is awake, alert, obeys commands, Oriented to person, place, time, situation. Cardiovascular: Capillary refill < 3 seconds Patient's skin is warm and dry. Respiratory: No deficits noted. Airway is patent Respiratory effort is even, unlabored, Respiratory pattern is regular, symmetrical. GI: No deficits noted. No signs and/or symptoms were reported involving the gastrointestinal system. : No deficits noted. No signs and/or symptoms were reported regarding the genitourinary system. EENT: No deficits noted. No signs and/or symptoms were reported regarding the EENT system. Derm: Abscess located on sacrum region. 10/25 01:00 Reassessment: Patient appears in no apparent distress at this time. Patient and/or pf1 family updated on plan of care and expected duration. Pain level reassessed. Patient is alert, oriented x 3, equal unlabored respirations, skin warm/dry/pink. 02:00 Reassessment: Patient appears in no apparent distress at this time. Patient and/or pf1 family updated on plan of care and expected duration. Pain level reassessed. Patient is alert, oriented x 3, equal unlabored respirations, skin warm/dry/pink. Vital Signs: 10/24 23:33 BP 122 / 81; Pulse 95; Resp 16; Temp 98; Pulse Ox 97% ; Weight 147.87 kg; Height 5 ft. pf1 3 in. ; Pain 8/10; 10/25 01:00 BP 115 / 78; Pulse 89; Resp 16; Pulse Ox 99% ; pf1 02:00 BP 130 / 79; Pulse 92; Resp 16; Pulse Ox 100% ; pf1 10/24 23:33 Body Mass Index 57.75 (147.87 kg, 160.02 cm) pf1 10/24 23:33 Pain Scale: Adult pf1 ED Course: 10/24 23:11 Patient arrived in ED. [id number] 23:14 Matteo Dunn PA is PHCP. cp 23:14 Mabel Gomez MD is Attending Physician. cp 23:37 Triage completed. pf1 23:40 Arm band placed on right wrist. pf1 23:40 Patient has correct armband on for positive identification. Bed in low position. Call pf1 light in reach. 10/25 02:00 No provider procedures requiring assistance completed. pf1 02:00 Patient did not have IV access during this emergency room visit. pf1 02:12 Dwight Owen MD is Referral Physician. cp 02:50 Provided Education on: medication administration. pf1 Administered Medications: 01:26 Drug: Hydrocodone-Acetaminophen PO (7.5 mg-325 mg) 1 tabs Route: PO; pf1 02:20 Follow up: Response: No adverse reaction; Marked relief of symptoms; Pain is decreased; pf1 RASS: Alert and Calm (0) 02:00 Drug: Lidocaine-Epinephrine Infiltration -1%: (1:100,000) 20 ml {Note: per kerri pf1 TD dunn.} Volume: 20 ml; Route: Infiltration; 02:50 Follow up: Response: No adverse reaction; Marked relief of symptoms; Pain is decreased pf1 02:00 Drug: Bupivacaine Infiltration (0.5 %) 10 ml {Note: per MonaPA.} Volume: 10 ml; Route: pf1 Infiltration; 02:50 Follow up: Response: No adverse reaction; Marked relief of symptoms; Pain is decreased pf1 02:30 Drug: Clindamycin PO 600 mg Route: PO; pf1 02:50 Follow up: Response: No adverse reaction pf1 02:30 Drug: Trimethoprim-Sulfamethoxazole PO (160 mg-800 mg (DS) 2 tabs Route: PO; pf1 02:50 Follow up: Response: No adverse reaction pf1 Medication: 02:50 VIS not applicable for this client. pf1 Outcome: 02:12 Discharge ordered by . cp 02:50 Discharged to home ambulatory. pf1 02:50 Condition: improved pf1 02:50 Discharge instructions given to patient, Instructed on discharge instructions, follow up and referral plans. Demonstrated understanding of instructions, follow-up care, medications, wound care, Prescriptions given X 4. 02:50 Patient left the ED. pf1 Signatures: Matteo Dunn PA PA cp Jeffries, Jennifer [id number] Radha Healy RN RN pf1 Corrections: (The following items were deleted from the chart) 08:20 03:30 Patient left the ED. pf1 pf1
[2022-10-25] MEDS ORDERED: SMZ./TMP. 800/160 MG TABLET ONE (02:39)
[2022-10-25 03:36] VITALS: BP 122/81; TEMP 98; O2SAT 97
== END 2022-10-25 03:30 | disposition home or self-care (01) ==
LOC: ER 23:03
PROC: 0H98XZZ Drainage of Buttock Skin, External Approach (ICD-10-PCS; principal; 2022-10-25)
DX: L05.01 Pilonidal cyst with abscess (principal)
CPT/HCPCS: 99283

== ENCOUNTER → 2023-03-03 | Emergency (ER) | payer SELFPAY ==
[~2023-03-03] MED LIST: LIDOCAINE 1% MPF 5 ML VIAL ONE; METFORMIN HCL 500 MG TAB ONE; SMZ./TMP. 800/160 MG TABLET ONE; lisinopriL 10 MG TAB ONE
--- OUTSIDE RECORDS SUMMARY | 2023-03-03 15:59 | XMS REPORT | Continuity of Care Document ---
Author Name Unknown Address [address] [facility] [address] [place] [address] [facility] Address [address] [facility] [address] [place] [address] Care Team Providers Care Drug Enforcement Agent Name Role Phone Judi Lee Primary Care Physician JOSY STEVENS Attending Clinician Unavailable Josy Freitas Attending Clinician [phone] MANUEL GRANDE Attending Clinician Unavailable Manuel Grande MD Attending Clinician [phone] AMBER SINGH Attending Clinician Unavailab Amber Duron DO Attending Clinician [phone] MANUEL GRANDE Admitting Clinician Unavailable Payers Payer Name Policy Type Policy Number Effective Date Expirati on Date Source [facility] [id number] 2021 00:00:00 Problems Condition Name Condition Details Condition Category Status Onset Date Resolution Date Last Treatment Date Treating Clinician Comments Source No known active problems No known active problems Disease [facility] Allergies, Adverse Reactions, Alerts Allergy Name Allergy Type Status Severity Reaction(s) Onset Date Inactive Date Treating Clinician Comments Source Steroids (Not Checked) Propensi ty to adverse reaction to drug Active 05-11 00:00: 00 NEUROMUS CULAR BLOCKERS , STEROIDA L Drug Class Active Unknown-Cmnt 2012-03 00:00: 00 [facility] Neuromus cular Blockers , Steroida l Propensi ty to adverse reaction s Active Unknown - See comments 2012-03 00:00: 00 [facility] Social History Social Habit Start Date Stop Date Quantity Comments Source Exposure to SARS-CoV-2 (event) 2021-11-05 00:00:00 2021-11-15 16:25:00 Not sure [facility] Sex Assigned At 1995 00:00:00 1995 00:00:00 [facility] Smoking Status Start Date Stop Date Source Tobacco smoking consumption unknown [facility] Medications Ordered Medication Name Filled Medication Name Start Date Stop Date Current Medication? Ordering Clinician Indication Dosage Frequency Signature (SIG) Comments Components Source morpHINE (4 mg/mL) injection 4 mg 11-14 09:45: 00 11-14 09:40 :00 No 4mg 4 mg, Slow IV Push, ONCE, 1 dose, On Wed11/14/21 at 0445, STAT [facility] ketorolac (TORADOL) injection 15 mg 11-14 09:45: 00 11-14 09:39 :00 No 15mg 15 mg, Slow IV Push, ONCE, 1 dose, On Wed11/14/21 at 0445, BECKY [facility] iohexol (OMNIPAQUE 350 BULK-100 mL) injection 80 mL 11-14 09:02: 00 11-14 09:02 :00 No [id number] 80mL 80 mL, Intravenou s, ONCE, 1 dose, On Wed11/14/21 at 0415, Routine [facility] cefTRIAXone (ROCEPHIN) 1,000 mg in NaCl 0.9% (NS) 50 mL MINI-BAG 11-14 08:15: 00 11-14 08:56 :31 No 1000mg 1,000 mg, IV Piggyback, ONCE, 1 dose, On Wed11/14/21 at 0315, Administer over 30 Minutes, 50 mL
Reas on for Anti-Infec tive: Documented Infection< br>Documen lillie Infection Site: Skin / Soft Tissue
Duration of Therapy: Other (see Comments) [facility] sulfamethox azole-trime thoprim 800-160 mg per tablet 11-14 00:00: 00 Yes [id number] 1{tbl} Take 1 tablet by mouth in the morning and 1 tablet in the evening. [facility] sulfamethox azole-trime thoprim 800-160 mg per tablet 11-14 00:00: 00 Yes [id number] 1{tbl} Take 1 tablet by mouth in the morning and 1 tablet in the evening. [facility] cephALEXin (KEFLEX) 500 mg capsule 11-14 00:00: 00 11-25 04:59 :00 No [id number] 500mg Take 1 capsule by mouth 4 (four) times daily for 10 days. [facility] cephALEXin (KEFLEX) 500 mg capsule 11-14 00:00: 00 11-25 04:59 :00 No [id number] 500mg Take 1 capsule by mouth 4 (four) times daily for 10 days. [facility] acetaminoph en-codeine 300-30 mg tablet 11-14 00:00: 00 11-22 04:59 :00 No [id number] 1{tbl} Take 1 tablet by mouth every 6 (six) hours as needed for Pain (scale 1-3) for up to 7 days. Indication s: acute pain [facility] acetaminoph en-codeine 300-30 mg tablet 11-14 00:00: 00 11-22 04:59 :00 No 4647 1{tbl} Take 1 tablet by mouth every 6 (six) hours as needed for Pain (scale 1-3) for up to 7 days. Indication s: acute pain [facility] TAKE 1 TABLET BY MOUTH ONCE DAILY 10-31 00:00: 00 No take 1 tablet by mouth twice a day 10-17 00:00: 00 No 5005 TAKE 1 TABLET DAILY. 10-17 00:00: 00 No take 1 tablet by mouth twice a day 10-17 00:00: 00 No 5005 TAKE 1 TABLET DAILY. 10-17 00:00: 00 No Dose Unknown 10-17 00:00: 00 No TAKE 1 TABLET DAILY. 10-17 00:00: 00 No [id number] Tamiflu 75 mg capsule 03-12 00:00: 00 No 1mg Tamiflu 75 mg capsule 03-12 00:00: 00 No 1mg Tamiflu 75 mg capsule 03-12 00:00: 00 No 1mg loratadine 10 mg tablet 05-11 00:00: 00 No 1mg amoxicillin 500 mg capsule 05-11 00:00: 00 No 1mg Bromfed DM 2 mg-30 mg-10 mg/5 mL syrup 05-11 00:00: 00 No 10mg/5 mL amoxicillin 500 mg capsule 05-11 00:00: 00 No 1mg Bromfed DM 2 mg-30 mg-10 mg/5 mL syrup 05-11 00:00: 00 No 10mg/5 mL loratadine 10 mg tablet 05-11 00:00: 00 No 1mg amoxicillin 500 mg capsule 05-11 00:00: 00 No 1mg Bromfed DM 2 mg-30 mg-10 mg/5 mL syrup 05-11 00:00: 00 No 10mg/5 mL loratadine 10 mg tablet 05-11 00:00: 00 No 1mg erythromyci n (ILOTYCIN) 5 mg/gram (0.5 %) ophthalmic ointment 2012-03 00:00: 00 Yes .5[in_u s] Place 0.5 Inches in left eye 4 (four) times daily. Continue until you follow up with eye doctor. [facility] erythromyci n (ILOTYCIN) 5 mg/gram (0.5 %) ophthalmic ointment 2012-03 00:00: 00 Yes .5[in_u s] Place 0.5 Inches in left eye 4 (four) times daily. Continue until you follow up with eye doctor. [facility] erythromyci n (ILOTYCIN) 5 mg/gram (0.5 %) ophthalmic ointment 2012-03 00:00: 00 Yes .5[in_u s] Place 0.5 Inches in left eye 4 (four) times daily. Continue until you follow up with eye doctor. [facility] Vital Signs Vital Name Observation Time Observation Value Comments S ource Systolic blood pressure 2021-11-15 21:28:00 127 mm[Hg] [facility] Diastolic blood pressure 2021-11-15 21:28:00 69 mm[Hg] [facility] Heart rate 2021-11-15 21:28:00 106 /min [facility] Body temperature 2021-11-15 21:28:00 37.61 Shazia [facility] Respiratory rate 2021-11-15 21:28:00 16 /min [facility] Body height 2021-11-15 21:28:00 162.6 cm [facility] Body weight 2021-11-15 21:28:00 141.976 kg [facility] BMI 2021-11-15 21:28:00 53.73 kg/m2 [facility] Oxygen saturation in Arterial blood by Pulse oximetry 2021-11-15 21:28:00 96 /min [facility] Systolic blood pressure 2021 10:11:00 150 mm[Hg] [facility] Diastolic blood pressure 2021 10:11:00 90 mm[Hg] [facility] Heart rate 2021 10:11:00 94 /min [facility] Respiratory rate 2021 10:11:00 18 /min [facility] Oxygen saturation in Arterial blood by Pulse oximetry 2021 10:11:00 94 /min [facility] Body temperature 2021 05:10:00 37.56 Shazia [facility] Body weight 2021 05:10:00 143.79 kg [facility] BMI 2021 05:10:00 54.41 kg/m2 [facility] Systolic blood pressure 2021-10-15 04:46:00 150 mm[Hg] [facility] Diastolic blood pressure 2021-10-15 04:46:00 107 mm[Hg] [facility] Heart rate 2021-10-15 04:46:00 95 /min [facility] temperature 2021-10-15 04:46:00 37.5 Shazia [facility] Body height 2021-10-15 04:46:00 162.6 cm [facility] Body weight 2021-10-15 04:46:00 144.697 kg [facility] BMI 2021-10-15 04:46:00 54.76 kg/m2 [facility] Oxygen saturation in Arterial blood by Pulse oximetry 2021-10-15 04:46:00 97 /min [facility] BP Systolic 2021-11-13 13:26:00 117 mm[Hg] BP [...] Procedures Procedure Date / Time Performed Performing Clinicia n Source CONSENT/REFUSAL FOR DIAGNOSIS AND TREATMENT 2021-11-15 21:20:33 Doctor Unassigned, [place] [facility] CT SOFT TISSUE NECK W CONTRAST 2021 09:08:29 Manuel Grande [facility] COVID-19 (ID NOW RAPID TESTING) 2021 08:28:00 Manuel Grande [facility] COMP. METABOLIC PANEL (05408) 2021 08:26:00 Manuel Grande [facility] CBC WITH DIFF 2021 08:26:00 Manuel Grande [facility] CONSENT/REFUSAL FOR DIAGNOSIS AND TREATMENT 2021 05:13:27 Doctor Unassigned, [place] [facility] POCT GLUCOSE (AUTOMATED) 2021-10-15 04:51:00 Amber Singh [facility] NOTICE OF PRIVACY PRACTICES 2021-10-15 04:43:48 Doctor Unassigned, [place] [facility] CONSENT/REFUSAL FOR DIAGNOSIS AND TREATMENT 2021-10-15 04:43:04 Doctor Unassigned, [place] [facility] Plan of Care Planned Activity Planned Date Details Comments Source Goal Plan of Care Note [code = 94257-0] Goal Plan of Care Note [code = 94480-8] Goal Plan of Care Note [code = 34979-1] Goal Plan of Care Note [code = 34820-4] Goal Plan of Care Note [code = 57863-4] Goal Plan of Care Note [code = 29893-0] Goal Plan of Care Note [code = 79916-5] Goal Plan of Care Note [code = 90019-9] Goal Plan of Care Note [code = 53904-5] Goal Plan of Care Note [code = 30297-8] Goal Plan of Care Note [code = 84963-9] Goal Plan of Care Note [code = 00699-6] Goal Plan of Care Note [code = 25135-0] Goal Plan of Care Note [code = 85789-2] Goal Plan of Care Note [code = 72326-4] Goal Plan of Care Note [code = 21484-4] Goal Plan of Care Note [code = 85628-0] Goal Plan of Care Note [code = 80460-5] Goal Plan of Care Note [code = 00075-7] Goal Plan of Care Note [code = 36626-1] Goal Plan of Care Note [code = 53228-6] Goal Plan of Care Note [code = 10039-0] Goal Plan of Care Note [code = 69174-2] Goal Plan of Care Note [code = 42602-2] Goal Plan of Care Note [code = 50149-0] Goal Plan of Care Note [code = 58402-9] Goal Plan of Care Note [code = 42281-3] Goal Plan of Care Note [code = 85859-9] Goal Plan of Care Note [code = 64912-0] Goal Plan of Care Note [code = 29918-1] Goal Plan of Care Note [code = 89161-1] Goal Plan of Care Note [code = 16526-5] Goal Plan of Care Note [code = 31367-8] Goal Plan of Care Note [code = 21996-9] Goal Plan of Care Note [code = 52698-8] Goal Plan of Care Note [code = 96161-0] Goal Plan of Care Note [code = 72708-8] Encounters Start Date/Time End Date/Time Encounter Type Admission Type Attending [facility] Facility Care Department Encounter ID Source 2021-12-27 09:28:51 2021-12-27 09:28:51 Outpatient [facility] [id number] Lonnie Hale 2021-11-15 16:31:00 2021-11-15 17:19:00 Emergency X JOSY STEVENS [facility] ERT [id number] [facility] 2021-11-15 16:31:00 2021-11-15 17:19:00 Emergency Josy Stevens [facility] [id number] [id number] [id number] [facility] 2021 00:13:00 2021 05:26:00 Emergency X MANUEL GRANDE [facility] ERT [id number] [facility] 2021 00:13:00 2021 05:26:00 Emergency Manuel Grande [facility] 1..840.114 350.1.13.10 [id number] [id number] [facility] 2021-11-13 00:00:00 2021-11-13 00:00:00 Outpatient Visit [id number] 2021-10-24 00:00:00 2021-10-24 00:00:00 Outpatient Visit [id number] 2021-10-17 00:00:00 2021-10-17 00:00:00 Outpatient Visit [id number] 2021-10-14 23:53:00 2021-10-15 00:02:00 Emergency AMBER HERNÁNDEZ [facility] ERT [id number] [facility] 2021-10-14 23:53:00 2021-10-15 00:02:00 Emergency Amber Singh [facility] [id number] [id number] [id number] [id number] [facility] Results Test Description Test Time Test Comments Results Result Co mments Source LIPID [id number] 06:06:01* Test Item Value Reference Range Interpretation Comme nts CHOLESTEROL (test code = 2210) 154 MG/DL <200 TRIGLYCERIDES (test code = 2232) 64 MG/DL <150 HDL CHOLESTEROL (test code = 2220) 43 MG/DL >39 CALC LDL CHOL (test code = 2237) 96 MG/DL <100 NOTE: CALCULATED LDL IS BASED ON JAYNE-HERNANDEZ METHOD WHICHINCLUDES ADJUSTABLE TRIGLYCERIDE:VLDL CHOLESTEROL RATIO.THIS FACTOR VARIES BY MEASURED TRIGLYCERIDE AND NON-HDLCHOLESTEROL CONCENTRATIONS WITH INCREASED CALCULATED LDL SEENIN HIGHER TRIGLYCERIDE OR LOWER NON-HDL SPECIMENS. FOR MOREINFORMATION, SEE CLIENT ANNOUNCEMENT AT [email or web address] RISK RATIO LDL/HDL (test code = 2238) 2.23 RATIO <3.55 COMPREHENSIVE METABOLIC [id number] 06:06:01* Test Item Value Reference Range Interpretation Comme nts GLUCOSE (test code = 2217) 200 MG/DL 70-99 H BUN (test code = 2208) 11 MG/DL 6-20 CREATININE (test code = 2214) 0.71 MG/DL 0.80-1.40 L eGFR (2020 CKD-EPI) (test code = 35805) 131 ML/MIN/1.73 >60 CALC BUN/CREAT (test code = 2234) 15 RATIO 6-28 SODIUM (test code = 2230) 144 MEQ/L 133-146 POTASSIUM (test code = 2227) 5.1 MEQ/L 3.5-5.4 CHLORIDE (test code = 2214) 102 MEQ/L 95-107 CARBON DIOXIDE (test code = 2205) 28 MEQ/L 19-31 CALCIUM (test code = 2208) 9.8 MG/DL 8.5-10.5 PROTEIN, TOTAL (test code = 2228) 7.0 G/DL 6.1-8.3 ALBUMIN (test code = 2200) 4.7 G/DL 3.5-5.2 CALC GLOBULIN (test code = 2239) 2.3 G/DL 1.9-3.7 CALC A/G RATIO (test code = 2233) 2.0 RATIO 1.0-2.6 BILIRUBIN, TOTAL (test code = 2206) 0.4 MG/DL See_Comment [Automated me ssage] The system which generated this result transmitted reference range: <=1.2. The reference range was not used to interpret this result as normal/abnormal. ALKALINE PHOSPHATASE (test code = 2203) 68 U/L 40-120 AST (test code = 2217) 24 U/L 9-50 ALT (test code = 2218) 43 U/L 5-50 HEMOGLOBIN [id number] 06:36:50* Test Item Value Reference Range Interpretation Comme nts HEMOGLOBIN A1c (test code = 24324) 8.6 % 4.2-5.6 H [employer] GUIDELINES FOR HGB A1C: PREDIABETES/INCREASED RISK . . . . . . . 5.7-6.4% DIAGNOSIS OF DIABETES . . . . . . . . . >=6.5% WITH CONFIRMATION OR APPROPRIATE SYMPTOMS NOTE: ASSAY MAY BE AFFECTED BY HEMOGLOBINOPATHIES (SICKLE CELL ANEMIA, S-C DISEASE, OTHERS) OR ARTIFICIALLY LOWERED BY DECREASED RED CELL SURVIVAL (HEMOLYTIC ANEMIAS, BLOOD LOSS, ETC.). CONSIDER ALTERNATE TESTING OR LABORATORY CONSULTATION. CBC W/AUTO DIFF WITH [id number] 04:23:23* Test Item Value Reference Range Interpretation Comme nts WBC (test code = 1001) 11.1 K/UL 3.5-11.0 H RBC (test code = 1002) 5.43 M/UL 4.50-6.10 HEMOGLOBIN (test code = 1003) 15.6 G/DL 13.5-17.0 HEMATOCRIT (test code = 1004) 49.6 % 40.0-51.0 MCV (test code = 1005) 91.3 fL 80.0-99.0 MCH (test code = 1006) 28.7 PG 25.0-33.0 MCHC (test code = 1007) 31.5 G/DL 31.0-36.0 RDW (test code = 1038) 12.3 % 11.5-15.0 NEUTROPHILS (test code = 1008) 68.1 % LYMPHOCYTES (test code = 1010) 23.1 % MONOCYTES (test code = 1011) 6.3 % EOSINOPHILS (test code = 1012) 1.9 % BASOPHILS (test code = 1013) 0.3 % IMMATURE GRANULOCYTES (test code = 1036) 0.3 % NUCLEATED RBCS (test code = 1065) 0.0 /100 WBC'S See_Comment [Automated messa ge] The system which generated this result transmitted reference range: 0.0. The reference range was not used to interpret this result as normal/abnormal. PLATELET COUNT (test code = 1015) 293 K/UL 130-400 ABSOLUTE NEUTROPHILS (test code = 1066) 7.54 K/UL 1.50-7.50 H ABSOLUTE LYMPHOCYTES (test code = 1067) 2.56 K/UL 1.00-4.00 ABSOLUTE MONOCYTES (test code = 1068) 0.70 K/UL 0.20-1.00 ABSOLUTE EOSINOPHILS (test code = 1040) 0.21 K/UL 0.00-0.50 ABSOLUTE BASOPHILS (test code = 1069) 0.03 K/UL 0.00-0.20 ABS IMMATURE GRANULOCYTES (test code = 1020) 0.03 K/UL 0.00-0.10 ABS NUCLEATED RBCS (test code = 37989) 0.00 K/UL 0.00-0.11 CBC WITH [id number] 09:05:00* Test Item Value Reference Range Interpretation Comme nts WBC (test code = 6690-2) See_Comment H [Automated message] The system which generated this result transmitted reference range: 4.20 - 10.70 10*3/?L. The reference range was not used to interpret this result as normal/abnormal. RBC (test code = 789-8) See_Comment [Automated message] The system which generated this result transmitted reference range: 4.26 - 5.52 10*6/?L. The reference range was not used to interpret this result as normal/abnormal. HGB (test code = 718-7) 15.5 g/dL 12.2-16.4 HCT (test code = 4544-3) 44.6 % 38.4-49.3 MCV (test code = 787-2) 86.6 fL 81.7-95.6 MCH (test code = 785-6) 30.1 pg 26.1-32.7 MCHC (test code = 786-4) 34.8 g/dL 31.2-35 RDW-SD (test code = 74556-4) 38.3 fL 38.5-51.6 L RDW-CV (test code = 788-0) 11.9 % 12.1-15.4 L PLT (test code = 777-3) See_Comment [Automated message] The system which generated this result transmitted reference range: 150 - 328 10*3/?L. The reference range was not used to interpret this result as normal/abnormal. MPV (test code = 79874-0) 11.6 fL 9.8-13 NRBC/100 WBC (test code = 2360261780) See_Comment [Automated message] The system which generated this result transmitted reference range: 0.0 - 10.0 /100 WBCs. The reference range was not used to interpret this result as normal/abnormal. NRBC x10^3 (test code = 4697593327) See_Comment [Automated message] The system which generated this result transmitted reference range: 10*3/?L. The reference range was not used to interpret this result as normal/abnormal. GRAN MAT (NEUT) % (test code = 770-8) 79.8 % IMM GRAN % (test code = 5405670619) 0.40 % LYMPH % (test code = 736-9) 11.8 % MONO % (test code = 5905-5) 6.3 % EOS % (test code = 713-8) 1.4 % BASO % (test code = 706-2) 0.3 % GRAN MAT x10^3(ANC) (test code = 1951494067) 15.65 10*3/uL 1.99-6.95 H IMM GRAN x10^3 (test code = 0777407298) 0.08 10*3/uL 0-0.06 H LYMPH x10^3 (test code = 731-0) 2.31 10*3/uL 1.09-3.23 MONO x10^3 (test code = 742-7) 1.23 10*3/uL 0.36-1.02 H EOS x10^3 (test code = 711-2) 0.27 10*3/uL 0.06-0.53 BASO x10^3 (test code = 704-7) 0.05 10*3/uL 0.01-0.09 Lab Interpretation (test code = 54165-1) [facility]10215[facility]20[facility] 08:49:12* Test Item Value Reference Range Interpretation Comme nts NA (test code = 0559504874) 135 mmol/L 135-145 K (test code = 6362427105) 4.1 mmol/L 3.5-5 CL (test code = 6873489143) 101 mmol/L 98-108 CO2 TOTAL (test code = 6975077750) 28 mmol/L 23-31 AGAP (test code = 2774798113) 2-16 BUN (test code = 5264709305) 13 mg/dL 7-23 GLUCOSE (test code = 0289976408) 212 mg/dL 70-110 H CREATININE (test code = 0775348838) 0.66 mg/dL 0.6-1.25 TOTAL BILI (test code = 2305899086) 0.6 mg/dL 0.1-1.1 CALCIUM (test code = 8656447668) 9.1 mg/dL 8.6-10.6 T PROTEIN (test code = 6832156212) 7.2 g/dL 6.3-8.2 ALBUMIN (test code = 8163323518) 4.4 g/dL 3.5-5 ALK PHOS (test code = 5306144153) 84 U/L 34-122 ALTv (test code = 1742-6) 41 U/L 5-50 AST(SGOT) (test code = 3414990580) 22 U/L 13-40 eGFR (test code = 5704797143) mL/min/1.73m2 EDENILSON (test code = EDENILSON) Association of [...] or abnormalities in imaging tests). Lab Interpretation (test code = 48533-9) [facility]normal [id number] 09:03:24* Test Item Value Reference Range Interpretation Comme [facility] VITAMIN B-12 (test code = 2840) 370 PG/ML 200-950 VITAMIN D, 25 [id number] 06:22:29* Test Item Value Reference Range Interpretation Comme [facility] VITAMIN D, 25 OH (test code = 4958) 20 NG/ML SEE BELOW L NOTE: 25-HYDR OXYVITAMIN D ASSAY INCLUDES 25-HYDROXYVITAMIN D2 AND D3. METHODOLOGY IS CHEMILUMINESCENT IMMUNOASSAY. INTERPRETIVE RANGES PEDIATRIC (<17 YEARS) . . . . . . . . . . . NG/ML 20-100ADULT: INSUFFICIENT . . . . . . . . . . . . . . NG/ML <20 SUBOPTIMAL . . . . . . . . . . . . . . . NG/ML 20-29 OPTIMAL . . . . . . . . . . . . . . . . . NG/ML 30-100 UNLESS OTHERWISE INDICATED, ALL TESTING PERFORMED [facility] [employer] [address] [place] [id number] [employer] CRACKER OPERATOR: CARMELA PERLA M.D. CLIA NUMBER [id number] [facility] [id number] COMPREHENSIVE METABOLIC [id number] 05:50:16* Test Item Value Reference Range Interpretation Comme nts GLUCOSE (test code = 2217) 209 MG/DL 70-99 H BUN (test code = 2208) 14 MG/DL 6-20 CREATININE (test code = 2214) 0.77 MG/DL 0.80-1.40 L eGFR (2020 CKD-EPI) (test code = 02998) 129 ML/MIN/1.73 >60 CALC BUN/CREAT (test code = 2235) 18 RATIO 6-28 SODIUM (test code = 2231) 143 MEQ/L 133-146 POTASSIUM (test code = 2228) 4.8 MEQ/L 3.5-5.4 CHLORIDE (test code = 2215) 103 MEQ/L 95-107 CARBON DIOXIDE (test code = 2206) 28 MEQ/L 19-31 CALCIUM (test code = 2209) 9.9 MG/DL 8.5-10.5 PROTEIN, TOTAL (test code = 2229) 7.1 G/DL 6.1-8.3 ALBUMIN (test code = 2201) 4.5 G/DL 3.5-5.2 CALC GLOBULIN (test code = 2240) 2.6 G/DL 1.9-3.7 CALC A/G RATIO (test code = 2234) 1.7 RATIO 1.0-2.6 BILIRUBIN, TOTAL (test code = 2207) 0.4 MG/DL See_Comment [Automated me ssage] The system which generated this result transmitted reference range: <=1.2. The reference range was not used to interpret this result as normal/abnormal. ALKALINE PHOSPHATASE (test code = 2204) 79 U/L 40-121 AST (test code = 2218) 26 U/L 9-50 ALT (test code = 2219) 71 U/L 5-50 H LIPID [id number] 05:50:16* Test Item Value Reference Range Interpretation Comme nts CHOLESTEROL (test code = 2210) 193 MG/DL <200 TRIGLYCERIDES (test code = 2232) 84 MG/DL <150 HDL CHOLESTEROL (test code = 2220) 46 MG/DL >39 CALC LDL CHOL (test code = 2237) 129 MG/DL <100 H NOTE: CALCULATED LDL IS BASED ON JAYNE-HERNANDEZ METHOD WHICHINCLUDES ADJUSTABLE TRIGLYCERIDE:VLDL CHOLESTEROL RATIO.THIS FACTOR VARIES BY MEASURED TRIGLYCERIDE AND NON-HDLCHOLESTEROL CONCENTRATIONS WITH INCREASED CALCULATED LDL SEENIN HIGHER TRIGLYCERIDE OR LOWER NON-HDL SPECIMENS. FOR MOREINFORMATION, SEE CLIENT ANNOUNCEMENT AT [email or web address] RISK RATIO LDL/HDL (test code = 2238) 2.80 RATIO <3.55 HEMOGLOBIN [id number] 03:58:35* Test Item Value Reference Range Interpretation Comme nts HEMOGLOBIN A1c (test code = 62663) 9.9 % 4.2-5.6 H [employer] S [employer]ATION GUIDELINES FOR HGB A1C: PREDIABETES/INCREASED RISK . . . . . . . 5.7-6.4% DIAGNOSIS OF DIABETES . . . . . . . . . >=6.5% WITH CONFIRMATION OR APPROPRIATE SYMPTOMS NOTE: ASSAY MAY BE AFFECTED BY HEMOGLOBINOPATHIES (SICKLE CELL ANEMIA, S-C DISEASE, OTHERS) OR ARTIFICIALLY LOWERED BY DECREASED RED CELL SURVIVAL (HEMOLYTIC ANEMIAS, BLOOD LOSS, ETC.). CONSIDER ALTERNATE TESTING OR LABORATORY CONSULTATION. CBC W/AUTO DIFF WITH [id number] 02:19:24* Test Item Value Reference Range Interpretation Comme nts WBC (test code = 1001) 12.3 K/UL 3.5-11.0 H RBC (test code = 1002) 5.32 M/UL 4.50-6.10 HEMOGLOBIN (test code = 1003) 16.0 G/DL 13.5-17.0 HEMATOCRIT (test code = 1004) 46.6 % 40.0-51.0 MCV (test code = 1005) 87.6 fL 80.0-99.0 MCH (test code = 1006) 30.1 PG 25.0-33.0 MCHC (test code = 1007) 34.3 G/DL 31.0-36.0 RDW (test code = 1038) 11.8 % 11.5-15.0 NEUTROPHILS (test code = 1008) 64.2 % LYMPHOCYTES (test code = 1010) 27.1 % MONOCYTES (test code = 1011) 6.3 % EOSINOPHILS (test code = 1012) 1.9 % BASOPHILS (test code = 1013) 0.3 % IMMATURE GRANULOCYTES (test code = 1036) 0.2 % NUCLEATED RBCS (test code = 1065) 0.0 /100 WBC'S See_Comment [Automated messa ge] The system which generated this result transmitted reference range: 0.0. The reference range was not used to interpret this result as normal/abnormal. PLATELET COUNT (test code = 1015) 301 K/UL 130-400 ABSOLUTE NEUTROPHILS (test code = 1066) 7.88 K/UL 1.50-7.50 H ABSOLUTE LYMPHOCYTES (test code = 1067) 3.33 K/UL 1.00-4.00 ABSOLUTE MONOCYTES (test code = 1068) 0.78 K/UL 0.20-1.00 ABSOLUTE EOSINOPHILS (test code = 1040) 0.23 K/UL 0.00-0.50 ABSOLUTE BASOPHILS (test code = 1069) 0.04 K/UL 0.00-0.20 ABS IMMATURE GRANULOCYTES (test code = 1020) 0.03 K/UL 0.00-0.10 ABS NUCLEATED RBCS (test code = 46781) 0.00 K/UL 0.00-0.11 COMPREHENSIVE METABOLIC [id number] 00:00:00* Test Item Value Reference Range Interpretation Comme nts GLUCOSE (test code = 2217) 209 MG/DL BUN (test code = 2208) 14 MG/DL CREATININE (test code = 2214) 0.77 MG/DL eGFR (2020 CKD-EPI) (test code = 76635) 129 ML/MIN/1.73 CALC BUN/CREAT (test code = 2235) 18 RATIO SODIUM (test code = 2231) 143 MEQ/L POTASSIUM (test code = 2228) 4.8 MEQ/L CHLORIDE (test code = 2215) 103 MEQ/L CARBON DIOXIDE (test code = 2206) 28 MEQ/L CALCIUM (test code = 2209) 9.9 MG/DL PROTEIN, TOTAL (test code = 2229) 7.1 G/DL ALBUMIN (test code = 2201) 4.5 G/DL CALC GLOBULIN (test code = 2240) 2.6 G/DL CALC A/G RATIO (test code = 2234) 1.7 RATIO BILIRUBIN, TOTAL (test code = 7) 0.4 MG/DL ALKALINE PHOSPHATASE (test code = 2204) 79 U/L AST (test code = 8) 26 U/L ALT (test code = 9) 71 U/L HEMOGLOBIN [id number] 00:00:00* Test Item Value Reference Range Interpretation Comme [facility] HEMOGLOBIN A1c (test code = 65333) 9.9 % HEMOGLOBIN [id number] 00:00:00* Test Item Value Reference Range Interpretation Comme [facility] HEMOGLOBIN A1c (test code = 91719) 9.9 % HEMOGLOBIN [id number] 00:00:00* Test Item Value Reference Range Interpretation Comme [facility] HEMOGLOBIN A1c (test code = 73364) 9.9 % VITAMIN [id number] 00:00:00* Test Item Value Reference Range Interpretation Comme [facility] VITAMIN B-12 (test code = 2840) 370 PG/ML VITAMIN [id number] 00:00:00* Test Item Value Reference Range Interpretation Comme [facility] VITAMIN B-12 (test code = 2840) 370 PG/ML VITAMIN [id number] 00:00:00* Test Item Value Reference Range Interpretation Comme [facility] VITAMIN B-12 (test code = 2840) 370 PG/ML VITAMIN D, 25 [id number] 00:00:00* Test Item Value Reference Range Interpretation Comme [facility] VITAMIN D, 25 OH (test code = 4958) 20 NG/ML VITAMIN D, 25 [id number] 00:00:00* Test Item Value Reference Range Interpretation Comme [facility] VITAMIN D, 25 OH (test code = 4958) 20 NG/ML LIPID [id number] 00:00:00* Test Item Value Reference Range Interpretation Comme nts CHOLESTEROL (test code = 2210) 193 MG/DL TRIGLYCERIDES (test code = 2232) 84 MG/DL HDL CHOLESTEROL (test code = 2220) 46 MG/DL CALC LDL CHOL (test code = 2237) 129 MG/DL RISK RATIO LDL/HDL (test cod e = 2238) 2.80 RATIO LIPID [id number] 00:00:00* Test Item Value Reference Range Interpretation Comme nts CHOLESTEROL (test code = 2210) 193 MG/DL TRIGLYCERIDES (test code = 2232) 84 MG/DL HDL CHOLESTEROL (test code = 2220) 46 MG/DL CALC LDL CHOL (test code = 2237) 129 MG/DL RISK RATIO LDL/HDL (test cod e = 2238) 2.80 RATIO CBC W/AUTO [id number] 00:00:00* Test Item Value Reference Range Interpretation Comme nts WBC (test code = 1001) 12.3 K/UL [...] = 1013) 0.3 % IMMATURE GRANULOCYTES (test code = 1036) 0.2 % NUCLEATED RBCS (test code = 1065) 0.0 /100WBC'S PLATELET COUNT (test code = 1015) 301 K/UL ABSOLUTE NEUTROPHILS (test c ode = 1066) 7.88 K/UL ABSOLUTE LYMPHOCYTES (test c ode = 1067) 3.33 K/UL ABSOLUTE MONOCYTES (test cod e = 1068) 0.78 K/UL ABSOLUTE EOSINOPHILS (test c ode = 1040) 0.23 K/UL ABSOLUTE BASOPHILS (test cod e = 1069) 0.04 K/UL ABS IMMATURE GRANULOCYTES (t est code = 1020) 0.03 K/UL ABS NUCLEATED RBCS (test cod e = 61612) 0.00 K/UL CBC W/AUTO [id number] 00:00:00* Test Item Value Reference Range Interpretation Comme nts WBC (test code = 1001) 12.3 K/UL [...] = 1013) 0.3 % IMMATURE GRANULOCYTES (test code = 1036) 0.2 % NUCLEATED RBCS (test code = 1065) 0.0 /100WBC'S PLATELET COUNT (test code = 1015) 301 K/UL ABSOLUTE NEUTROPHILS (test c ode = 1066) 7.88 K/UL ABSOLUTE LYMPHOCYTES (test c ode = 1067) 3.33 K/UL ABSOLUTE MONOCYTES (test cod e = 1068) 0.78 K/UL ABSOLUTE EOSINOPHILS (test c ode = 1040) 0.23 K/UL ABSOLUTE BASOPHILS (test cod e = 1069) 0.04 K/UL ABS IMMATURE GRANULOCYTES (t est code = 1020) 0.03 K/UL ABS NUCLEATED RBCS (test cod e = 43003) 0.00 K/UL CBC W/AUTO [id number] 00:00:00* Test Item Value Reference Range Interpretation Comme nts WBC (test code = 1001) 12.3 K/UL [...] = 1013) 0.3 % IMMATURE GRANULOCYTES (test code = 1036) 0.2 % NUCLEATED RBCS (test code = 1065) 0.0 /100WBC'S PLATELET COUNT (test code = 1015) 301 K/UL ABSOLUTE NEUTROPHILS (test c ode = 1066) 7.88 K/UL ABSOLUTE LYMPHOCYTES (test c ode = 1067) 3.33 K/UL ABSOLUTE MONOCYTES (test cod e = 1068) 0.78 K/UL ABSOLUTE EOSINOPHILS (test c ode = 1040) 0.23 K/UL ABSOLUTE BASOPHILS (test cod e = 1069) 0.04 K/UL ABS IMMATURE GRANULOCYTES (t est code = 1020) 0.03 K/UL ABS NUCLEATED RBCS (test cod e = 80281) 0.00 K/UL COMPREHENSIVE METABOLIC [id number] 00:00:00* Test Item Value Reference Range Interpretation Comme nts GLUCOSE (test code = 2217) 209 MG/DL BUN (test code = 2208) 14 MG/DL CREATININE (test code = 2214) 0.77 MG/DL eGFR (2020 CKD-EPI) (test code = 68553) 129 ML/MIN/1.73 CALC BUN/CREAT (test code = 2235) 18 RATIO SODIUM (test code = 2231) 143 MEQ/L POTASSIUM (test code = 2228) 4.8 MEQ/L CHLORIDE (test code = 2215) 103 MEQ/L CARBON DIOXIDE (test code = 2206) 28 MEQ/L CALCIUM (test code = 2209) 9.9 MG/DL PROTEIN, TOTAL (test code = 2229) 7.1 G/DL ALBUMIN (test code = 2201) 4.5 G/DL CALC GLOBULIN (test code = 2240) 2.6 G/DL CALC A/G RATIO (test code = 2234) 1.7 RATIO BILIRUBIN, TOTAL (test code = 2207) 0.4 MG/DL ALKALINE PHOSPHATASE (test code = 2204) 79 U/L AST (test code = 2218) 26 U/L ALT (test code = 2219) 71 U/L COMPREHENSIVE METABOLIC [id number] 00:00:00* Test Item Value Reference Range Interpretation Comme nts GLUCOSE (test code = 7) 209 MG/DL BUN (test code = 8) 14 MG/DL CREATININE (test code = 2214) 0.77 MG/DL eGFR (2020 CKD-EPI) (test code = 76145) 129 ML/MIN/1.73 CALC BUN/CREAT (test code = 2235) 18 RATIO SODIUM (test code = 223) 143 MEQ/L POTASSIUM (test code = 2228) 4.8 MEQ/L CHLORIDE (test code = 2215) 103 MEQ/L CARBON DIOXIDE (test code = 2206) 28 MEQ/L CALCIUM (test code = 2209) 9.9 MG/DL PROTEIN, TOTAL (test code = 2228) 7.1 G/DL ALBUMIN (test code = 2201) 4.5 G/DL CALC GLOBULIN (test code = 2240) 2.6 G/DL CALC A/G RATIO (test code = 2234) 1.7 RATIO BILIRUBIN, TOTAL (test code = 2206) 0.4 MG/DL ALKALINE PHOSPHATASE (test code = 2203) 79 U/L AST (test code = 8) 26 U/L ALT (test code = 2219) 71 U/L HEMOGLOBIN [id number] 00:00:00* Test Item Value Reference Range Interpretation Comme nts HEMOGLOBIN A1c (test code = 92813) 9.9 % HEMOGLOBIN [id number] 00:00:00* Test Item Value Reference Range Interpretation Comme nts HEMOGLOBIN A1c (test code = 65620) 9.9 % HEMOGLOBIN [id number] 00:00:00* Test Item Value Reference Range Interpretation Comme nts HEMOGLOBIN A1c (test code = 88303) 9.9 % VITAMIN [id number] 00:00:00* Test Item Value Reference Range Interpretation Comme nts VITAMIN B-12 (test code = 2840) 370 PG/ML VITAMIN [id number] 00:00:00* Test Item Value Reference Range Interpretation Comme nts VITAMIN B-12 (test code = 2840) 370 PG/ML VITAMIN [id number] 00:00:00* Test Item Value Reference Range Interpretation Comme [facility] VITAMIN B-12 (test code = 2840) 370 PG/ML VITAMIN D, 25 [id number] 00:00:00* Test Item Value Reference Range Interpretation Comme nts VITAMIN D, 25 OH (test code = 4958) 20 NG/ML VITAMIN D, 25 [id number] 00:00:00* Test Item Value Reference Range Interpretation Comme nts VITAMIN D, 25 OH (test code = 4958) 20 NG/ML LIPID [id number] 00:00:00* Test Item Value Reference Range Interpretation Comme nts CHOLESTEROL (test code = 2210) 193 MG/DL TRIGLYCERIDES (test code = 2232) 84 MG/DL HDL CHOLESTEROL (test code = 2220) 46 MG/DL CALC LDL CHOL (test code = 2237) 129 MG/DL RISK RATIO LDL/HDL (test cod e = 2238) 2.80 RATIO LIPID [id number] 00:00:00* Test Item Value Reference Range Interpretation Comme nts CHOLESTEROL (test code = 2210) 193 MG/DL TRIGLYCERIDES (test code = 2232) 84 MG/DL HDL CHOLESTEROL (test code = 2220) 46 MG/DL CALC LDL CHOL (test code = 2237) 129 MG/DL RISK RATIO LDL/HDL (test cod e = 2238) 2.80 RATIO CBC W/AUTO [id number] 00:00:00* Test Item Value Reference Range Interpretation Comme nts WBC (test code = 1001) 12.3 K/UL [...] = 1013) 0.3 % IMMATURE GRANULOCYTES (test code = 1036) 0.2 % NUCLEATED RBCS (test code = 1065) 0.0 /100WBC'S PLATELET COUNT (test code = 1015) 301 K/UL ABSOLUTE NEUTROPHILS (test c ode = 1066) 7.88 K/UL ABSOLUTE LYMPHOCYTES (test c ode = 1067) 3.33 K/UL ABSOLUTE MONOCYTES (test cod e = 1068) 0.78 K/UL ABSOLUTE EOSINOPHILS (test c ode = 1040) 0.23 K/UL ABSOLUTE BASOPHILS (test cod e = 1069) 0.04 K/UL ABS IMMATURE GRANULOCYTES (t est code = 1020) 0.03 K/UL ABS NUCLEATED RBCS (test cod e = 02508) 0.00 K/UL CBC W/AUTO [id number] 00:00:00* Test Item Value Reference Range Interpretation Comme nts WBC (test code = 1001) 12.3 K/UL [...] = 1013) 0.3 % IMMATURE GRANULOCYTES (test code = 1036) 0.2 % NUCLEATED RBCS (test code = 1065) 0.0 /100WBC'S PLATELET COUNT (test code = 1015) 301 K/UL ABSOLUTE NEUTROPHILS (test c ode = 1066) 7.88 K/UL ABSOLUTE LYMPHOCYTES (test c ode = 1067) 3.33 K/UL ABSOLUTE MONOCYTES (test cod e = 1068) 0.78 K/UL ABSOLUTE EOSINOPHILS (test c ode = 1040) 0.23 K/UL ABSOLUTE BASOPHILS (test cod e = 1069) 0.04 K/UL ABS IMMATURE GRANULOCYTES (t est code = 1020) 0.03 K/UL ABS NUCLEATED RBCS (test cod e = 20706) 0.00 K/UL CBC W/AUTO [id number] 00:00:00* Test Item Value Reference Range Interpretation Comme nts WBC (test code = 1001) 12.3 K/UL [...] = 1013) 0.3 % IMMATURE GRANULOCYTES (test code = 1036) 0.2 % NUCLEATED RBCS (test code = 1065) 0.0 /100WBC'S PLATELET COUNT (test code = 1015) 301 K/UL ABSOLUTE NEUTROPHILS (test c ode = 1066) 7.88 K/UL ABSOLUTE LYMPHOCYTES (test c ode = 1067) 3.33 K/UL ABSOLUTE MONOCYTES (test cod e = 1068) 0.78 K/UL ABSOLUTE EOSINOPHILS (test c ode = 1040) 0.23 K/UL ABSOLUTE BASOPHILS (test cod e = 1069) 0.04 K/UL ABS IMMATURE GRANULOCYTES (t est code = 1020) 0.03 K/UL ABS NUCLEATED RBCS (test cod e = 62827) 0.00 K/UL COMPREHENSIVE METABOLIC [id number] 00:00:00* Test Item Value Reference Range Interpretation Comme nts GLUCOSE (test code = 2217) 209 MG/DL BUN (test code = 2208) 14 MG/DL CREATININE (test code = 2214) 0.77 MG/DL eGFR (2020 CKD-EPI) (test code = 65289) 129 ML/MIN/1.73 CALC BUN/CREAT (test code = 2235) 18 RATIO SODIUM (test code = 2231) 143 MEQ/L POTASSIUM (test code = 2228) 4.8 MEQ/L CHLORIDE (test code = 2215) 103 MEQ/L CARBON DIOXIDE (test code = 2206) 28 MEQ/L CALCIUM (test code = 2209) 9.9 MG/DL PROTEIN, TOTAL (test code = 2229) 7.1 G/DL ALBUMIN (test code = 2201) 4.5 G/DL CALC GLOBULIN (test code = 2240) 2.6 G/DL CALC A/G RATIO (test code = 2234) 1.7 RATIO BILIRUBIN, TOTAL (test code = 2207) 0.4 MG/DL ALKALINE PHOSPHATASE (test code = 2204) 79 U/L AST (test code = 2218) 26 U/L ALT (test code = 2219) 71 U/L POCT GLUCOSE (AUTOMATED)[id number] 04:54:46* Test Item Value Reference Range Interpretation Comme nts POCT GLU (test code = 8370977676) 168 mg/dL 70-110 H Lab Interpretation (test cod e = 57394-4) Abnormal [facility]"
--- NOTE | 2023-03-03 18:16 | EDPHYS ---
Physician Documentation [facility] Name: Rd Kumar Age: 27 yrs Sex: Male : 1995 Arrival Date: 03/03/2023 Time: 15:55 Bed 18 Private MD: ED Physician Thaddeus Whitten HPI: 03/03 16:11 This 27 yrs old Male presents to ER via Ambulatory with complaints of Abscess. sb4 16:11 The patient presents with an abscess of the buttocks. Description: tense, warm. Onset: sb4 The symptoms/episode began/occurred 3 day(s) ago. The patient has experienced a previous episode, approximately 4 months ago. Historical: - Allergies: 16:02 steroids; hb - PMHx: 16:02 diabetes mellitus; Hypertensive disorder; pancreatitis medication induced; hb - Immunization history:: Adult Immunizations up to date. - Social history:: Smoking status: Patient denies any tobacco usage or history of. ROS: 16:11 Constitutional: Negative for fever, chills, and weight loss, sb4 16:11 Skin: Positive for abscess, of the buttocks, 16:11 All other systems are negative, sb4 Exam: 16:11 Constitutional: This is a well developed, well nourished patient who is awake, alert, sb4 and in no acute distress. Head/Face: Normocephalic, atraumatic. Eyes: Extra-ocular motions intact. Periorbital areas with no swelling, redness, or edema. ENT: Mucous membranes moist. MS/ Extremity: Pulses equal, no cyanosis. Neurovascular intact. Full, normal range of motion. Neuro: Awake and alert, GCS 15, oriented to person, place, time, and situation. Motor strength 5/5 in all extremities. Sensory grossly intact. 16:11 Skin: abscess, that is small, of the gluteal cleft, with induration, Vital Signs: 16:00 BP 165 / 95; Pulse 80; Resp 18; Temp 97.7; Pulse Ox 98% on R/A; Weight 146.06 kg; hb Height 5 ft. 3 in. ; Pain 4/10; 19:00 BP 134 / 80; Pulse 78; Resp 18; Pulse Ox 98% ; vc1 16:00 Body Mass Index 57.04 (146.06 kg, 160.02 cm) hb 16:00 Pain Scale: Adult hb Procedures: 18:15 I \T\ D: Incision and drainage was performed for an abscess of the pilonidal cyst Prepped sb4 with Betadine, Anesthetized with 5 ml's 1% Lidocaine w/ Epi. Incised with #11 blade. Drained small amount serosanguinous fluid. Dressing: sterile 4x4 gauze, the patient tolerated the procedure well. MDM: 16:05 Patient medically screened. sb4 16:11 Differential diagnosis: abscess, cellulitis, insect bite. sb4 18:15 Data reviewed: vital signs, nurses notes, and as a result, I will discharge patient. sb4 Counseling: I had a detailed discussion with the patient and/or guardian regarding the historical points, exam findings, and any diagnostic results supporting the discharge/admit diagnosis, the need for outpatient follow up, a general surgeon. 03/03 17:39 Order name: Wound Culture sb4 03/03 18:59 Order name: Glucose, Ancillary Testing; Complete Time: 19:00 EDMS 03/03 16:05 Order name: Incision \T\ Drainage Setup; Complete Time: 17:38 sb4 03/03 18:16 Order name: Accucheck; Complete Time: 18:48 sb4 Administered Medications: 18:20 Drug: Lidocaine Infiltration (1 %) 20 ml 20 ml Infiltration once; to bedside Volume: 20 kc6 ml; Route: Infiltration; 19:24 Drug: metFORMIN PO 500 mg PO once; with meal or snack Route: PO; vc1 19:25 Follow up: Response: Medication administered at discharge. vc1 19:24 Drug: Trimethoprim-Sulfamethoxazole PO (160 mg-800 mg (DS) 1 tablet PO once Route: PO; vc1 19:25 Follow up: Response: Medication administered at discharge. vc1 19:24 Drug: Lisinopril PO 30 mg PO once Route: PO; vc1 19:24 Follow up: Response: Medication administered at discharge. vc1 Disposition Summary: 03/03/23 18:16 Discharge Ordered Notes: Location: Home sb4 Problem: new sb4 Symptoms: have improved sb4 Condition: Stable sb4 Diagnosis - Pilonidal cyst with abscess sb4 Followup: sb4 - With: Logan Giron MD - When: 1 week - Reason: Recheck today's complaints, Re-evaluation by your physician Discharge Instructions: - Discharge Summary Sheet sb4 - Pilonidal Cyst sb4 - Pilonidal Cyst Drainage, Care After sb4 Forms: - Medication Reconciliation Form sb4 - Thank You Letter sb4 - Antibiotic Education sb4 - Prescription Opioid Use sb4 - Patient Portal Instructions sb4 - Leadership Thank You Letter sb4 Prescriptions: - lisinopril 30 mg Oral tablet - take 1 tablet ORAL route daily; 30 tablet; Refills: 0, Product Selection sb4 Permitted - metformin 500 mg Oral tablet - take 1 tablet ORAL route 2 times per day; 60 tablet; Refills: 0, Product sb4 Selection Permitted - Bactrim DS 800-160 mg Oral Tablet - take 1 tablet ORAL route every 12 hours for 10 days; 20 tablet; Refills: 0, sb4 Product Selection Permitted Addendum: 03/06/2023 09:10 Co-signature as Attending Physician, Thaddeus Whitten MD I reviewed the patient's care r n provided by the Advanced Practice Provider and agree with the diagnosis and treatment plan. Signatures: Dispatcher [employer] EDThaddeus Carranza MD MD rn Baxter, Heather, RN RN Steffanie Barahona RN RN vc1 Nohemi Delgado RN RN kc6 Smita Rodas, ALEXANDRA MORRIS sb4
--- NOTE | 2023-03-03 18:16 | ER ---
Nurse's Notes [facility] Name: Rd Kumar Age: 27 yrs Sex: Male : 1995 Arrival Date: 03/03/2023 Time: 15:55 Bed 18 Private MD: Diagnosis: Pilonidal cyst with abscess Presentation: 03/03 16:00 Chief complaint: Abscess on buttock x 4 days. Coronavirus screen: At this time, the hb client does not indicate any symptoms associated with coronavirus-19. Ebola Screen: No symptoms or risks identified at this time. Initial Sepsis Screen: Does the patient meet any 2 criteria? No. Patient's initial sepsis screen is negative. Does the patient have a suspected source of infection? No. Patient's initial sepsis screen is negative. Risk Assessment: Do you want to hurt yourself or someone else? Patient reports no desire to harm self or others. Onset of symptoms was February 28, 2023. 16:00 Method Of Arrival: Ambulatory hb 16:00 Acuity: VANESSA 4 hb Historical: - Allergies: 16:02 steroids; hb - PMHx: 16:02 diabetes mellitus; Hypertensive disorder; pancreatitis medication induced; hb - Immunization history:: Adult Immunizations up to date. - Social history:: Smoking status: Patient denies any tobacco usage or history of. Screenin:46 [facility] ED Fall Risk Assessment (Adult) History of falling in the last 3 months, kc6 including since admission No falls in past 3 months (0 pts) Confusion or Disorientation No (0 pts) Intoxicated or Sedated No (0 pts) Impaired Gait No (0 pts) Mobility Assist Device Used No (0 pt) Altered Elimination No (0 pt) Score/Fall Risk Level 0 - 2 = Low Risk. Abuse screen: Denies threats or abuse. Denies injuries from another. Nutritional screening: No deficits noted. Tuberculosis screening: No symptoms or risk factors identified. Assessment: 17:46 General: Appears in no apparent distress. comfortable, obese, well groomed, well kc6 developed, Behavior is calm, cooperative, appropriate for age. Pain: Complains of pain in buttocks and gluteal cleft. Neuro: Level of Consciousness is awake, alert, obeys commands, Oriented to person, place, time, situation, Appropriate for age. Cardiovascular: Capillary refill < 3 seconds. Respiratory: Airway is patent Trachea midline Respiratory effort is even, unlabored, Respiratory pattern is regular, symmetrical. GI: No signs and/or symptoms were reported involving the gastrointestinal system. : No signs and/or symptoms were reported regarding the genitourinary system. EENT: No signs and/or symptoms were reported regarding the EENT system. Derm: Skin is pink, warm \T\ dry. Abscess located on gluteal cleft. Musculoskeletal: No signs and/or symptoms reported regarding the musculoskeletal system. Circulation, motion, and sensation intact. Capillary refill < 3 seconds, Range of motion: intact in all extremities. 19:25 Reassessment: Patient and/or family updated on plan of care and expected duration. Pain vc1 level reassessed. Patient is alert, oriented x 3, equal unlabored respirations, skin warm/dry/pink. Patient states feeling better. Patient states symptoms have improved. Vital Signs: 16:00 BP 165 / 95; Pulse 80; Resp 18; Temp 97.7; Pulse Ox 98% on R/A; Weight 146.06 kg; hb Height 5 ft. 3 in. ; Pain 4/10; 19:00 BP 134 / 80; Pulse 78; Resp 18; Pulse Ox 98% ; vc1 16:00 Body Mass Index 57.04 (146.06 kg, 160.02 cm) hb 16:00 Pain Scale: Adult hb ED Course: 15:59 Patient arrived in ED. hb 16:01 Triage completed. hb 16:02 [facility] sb4 16:02 Thaddeus Whitten MD is Attending Physician. sb4 16:02 Arm band placed on. hb 17:36 Nohemi Delgado, BLADE is Primary Nurse. kc6 17:46 Patient has correct armband on for positive identification. Bed in low position. Call kc6 light in reach. Side rails up X 1. Client placed on continuous cardiac and pulse oximetry monitoring. NIBP monitoring applied. 17:46 Patient maintains SpO2 saturation greater than 95% on room air. kc6 18:16 Logan Giron MD is Referral Physician. sb4 18:20 Wound Culture Sent. kc6 19:26 Assist provider with I \T\ D: of an abscess on pilonidal cyst Set up I\T\D tray. Performed vc 1 by Smita Brown PA-C Culture sent to lab. Patient tolerated well. 19:27 Provided Education on: COMPLETE ALL ANTIBIOTICS. vc1 19:27 Patient did not have IV access during this emergency room visit. vc1 Administered Medications: 18:20 Drug: Lidocaine Infiltration (1 %) 20 ml 20 ml Infiltration once; to bedside Volume: 20 kc6 ml; Route: Infiltration; 19:24 Drug: metFORMIN PO 500 mg PO once; with meal or snack Route: PO; vc1 19:25 Follow up: Response: Medication administered at discharge. vc1 19:24 Drug: Trimethoprim-Sulfamethoxazole PO (160 mg-800 mg (DS) 1 tablet PO once Route: PO; vc1 19:25 Follow up: Response: Medication administered at discharge. vc1 19:24 Drug: Lisinopril PO 30 mg PO once Route: PO; vc1 19:24 Follow up: Response: Medication administered at discharge. vc1 Medication: 19:27 VIS not applicable for this client. vc1 Outcome: 18:16 Discharge ordered by . sb4 19:26 Discharged to home ambulatory, vc1 19:26 Condition: good 19:26 Discharge instructions given to patient, Instructed on discharge instructions, follow up and referral plans. medication usage, Demonstrated understanding of instructions, follow-up care, medications, Prescriptions given X 3, 19:27 Patient left the ED. vc1 Signatures: Chasity Yang RN RN hb Calcote, Vanessa, RN RN vc1 Nohemi Delgado RN RN [id number] Smita Rodas PA-C PAValarie sb4
[2023-03-03 21:33] VITALS: TEMP 97.7; O2SAT 98
[2023-03-03 21:40] VITALS: BP 134/80
== END ==
LOC: ER 15:55
PROC: 0H98XZZ Drainage of Buttock Skin, External Approach (ICD-10-PCS; principal; 2023-03-03)
DX: L05.01 Pilonidal cyst with abscess (principal)
CPT/HCPCS: 10060; 82947; 87070; 87077; 87186; 87205; 99284; J2001

== ENCOUNTER 2023-11-11 09:45 | Emergency (ER) | payer SELFPAY ==
--- OUTSIDE RECORDS SUMMARY | 2023-11-11 09:48 | XMS REPORT | Continuity of Care Document ---
Author Name Unknown Address [address] [facility] [address] [place] [address] [facility] Address [address] [facility] [address] [place] [address] Care Team Providers Care Clerical Assigner Name Role Phone Judi Lee Primary Care Physician JOSY MORALES Attending Clinician Unavailable Josy Freitas Attending Clinician [phone] MANUEL GRANDE Attending Clinician Unavailable Manuel Grande MD Attending Clinician [phone] AMBER SINGH Attending Clinician Unavailab Amber Duron DO Attending Clinician [phone] MANUEL GRANDE Admitting Clinician Unavailable Payers Payer Name Policy Type Policy Number Effective Date Expirati on Date Source [facility] [id number] 2021 00:00:00 Problems Condition Name Condition Details Condition Category Status Onset Date Resolution Date Last Treatment Date Treating Clinician Comments Source No known active problems No known active problems Disease [facility] Allergies, Adverse Reactions, Alerts Allergy Name Allergy Type Status Severity Reaction(s) Onset Date Inactive Date Treating Clinician Comments Source Steroids (Not Checked) Propensi ty to adverse reaction to drug Active 05-11 00:00: 00 Neuromus cular Blockers , Steroida l Propensi ty to adverse reaction s Active Unknown - See comments 2012-03 00:00: 00 [facility] NEUROMUS CULAR BLOCKERS , STEROIDA L Drug Class Active Unknown-Cmnt 2012-03 00:00: 00 [facility] Social History Social Habit Start Date Stop Date Quantity Comments Source Exposure to SARS-CoV-2 (event) 2021-11-05 00:00:00 2021-11-15 16:25:00 Not sure [facility] Sex Assigned At 1995 00:00:00 1995 00:00:00 [facility] Smoking Status Start Date Stop Date Source Tobacco smoking consumption unknown [facility] Medications Ordered Medication Name Filled Medication Name Start Date Stop Date Current Medication? Ordering Clinician Indication Dosage Frequency Signature (SIG) Comments Components Source morpHINE (4 mg/mL) injection 4 mg 11-14 09:45: 00 11-14 09:40 :00 No 4mg 4 mg, Slow IV Push, ONCE, 1 dose, On Wed11/14/21 at 0445, STAT [facility] ketorolac (TORADOL) injection 15 mg 11-14 09:45: 00 11-14 09:39 :00 No 15mg 15 mg, Slow IV Push, ONCE, 1 dose, On Wed11/14/21 at 0445, BECKY [facility] iohexol (OMNIPAQUE 350 BULK-100 mL) injection 80 mL 11-14 09:02: 00 11-14 09:02 :00 No [id number] 80mL 80 mL, Intravenou s, ONCE, 1 dose, On Wed11/14/21 at 0415, Routine [facility] cefTRIAXone (ROCEPHIN) 1,000 mg in NaCl 0.9% (NS) 50 mL MINI-BAG 11-14 08:15: 00 11-14 08:56 :31 No 1000mg 1,000 mg, IV Piggyback, ONCE, 1 dose, On Wed11/14/21 at 0315, Administer over 30 Minutes, 50 mL
Reas on for Anti-Infec tive: Documented Infection< br>Documen lillie Infection Site: Skin / Soft Tissue
Duration of Therapy: Other (see Comments) [facility] sulfamethox azole-trime thoprim 800-160 mg per tablet 11-14 00:00: 00 Yes [id number] 1{tbl} Take 1 tablet by mouth in the morning and 1 tablet in the evening. [facility] cephALEXin (KEFLEX) 500 mg capsule 11-14 00:00: 00 11-25 04:59 :00 No [id number] 500mg Take 1 capsule by mouth 4 (four) times daily for 10 days. [facility] acetaminoph en-codeine 300-30 mg tablet 11-14 00:00: 00 11-22 04:59 :00 No 4647 1{tbl} Take 1 tablet by mouth every 6 (six) hours as needed for Pain (scale 1-3) for up to 7 days. Indication s: acute pain [facility] TAKE 1 TABLET BY MOUTH ONCE DAILY 10-31 00:00: 00 No take 1 tablet by mouth twice a day 10-17 00:00: 00 No 5004 TAKE 1 TABLET DAILY. 10-17 00:00: 00 No take 1 tablet by mouth twice a day 10-17 00:00: 00 No 5004 TAKE 1 TABLET DAILY. 10-17 00:00: 00 No Dose Unknown 10-17 00:00: 00 No TAKE 1 TABLET DAILY. 10-17 00:00: 00 No Tamiflu 75 mg capsule 03-12 00:00: 00 No 1mg Tamiflu 75 mg capsule 03-12 00:00: 00 No 1mg Tamiflu 75 mg capsule 03-12 00:00: 00 No 1mg amoxicillin 500 mg [...] mg tablet 05-11 00:00: 00 No 1mg loratadine 10 mg tablet 05-11 00:00: 00 No 1mg erythromyci n (ILOTYCIN) 5 mg/gram (0.5 %) ophthalmic ointment 2012-03 00:00: 00 Yes .5[in_u s] Place 0.5 Inches in left eye 4 (four) times daily. Continue until you follow up with eye doctor. [facility] Vital Signs Vital Name Observation Time Observation Value Comments S ource Systolic blood pressure 2021-11-15 21:28:00 127 mm[Hg] [facility] Diastolic blood pressure 2021-11-15 21:28:00 69 mm[Hg] [facility] Heart rate 2021-11-15 21:28:00 106 /min [facility] Body temperature 2021-11-15 21:28:00 37.61 Shazia [facility] Respiratory rate 2021-11-15 21:28:00 16 /min [facility] Body height 2021-11-15 21:28:00 162.6 cm [facility] Body weight 2021-11-15 21:28:00 141.976 kg [facility] BMI 2021-11-15 21:28:00 53.73 kg/m2 [facility] Oxygen saturation in Arterial blood by Pulse oximetry 2021-11-15 21:28:00 96 /min [facility] Systolic blood pressure 2021 10:11:00 150 mm[Hg] [facility] Diastolic blood pressure 2021 10:11:00 90 mm[Hg] [facility] Heart rate 2021 10:11:00 94 /min Unive [facility] Respiratory rate 2021 10:11:00 18 /min [facility] Oxygen saturation in Arterial blood by Pulse oximetry 2021 10:11:00 94 /min [facility] Body temperature 2021 05:10:00 37.56 Shazia [facility] Body weight 2021 05:10:00 143.79 kg [facility] BMI 2021 05:10:00 54.41 kg/m2 [facility] Systolic blood pressure 2021-10-15 04:46:00 150 mm[Hg] [facility] Diastolic blood pressure 2021-10-15 04:46:00 107 mm[Hg] [facility] Heart rate 2021-10-15 04:46:00 95 /min Unive [facility] Body temperature 2021-10-15 04:46:00 37.5 Shazia [facility] Body height 2021-10-15 04:46:00 162.6 cm [facility] Body weight 2021-10-15 04:46:00 144.697 kg [facility] BMI 2021-10-15 04:46:00 54.76 kg/m2 [facility] Oxygen saturation in Arterial blood by Pulse oximetry 2021-10-15 04:46:00 97 /min [facility] BP Systolic 2021-11-13 13:26:00 117 mm[Hg] BP [...] DIAGNOSIS AND TREATMENT 2021-11-15 21:20:33 Doctor Unassigned, [place] [facility] CT SOFT TISSUE NECK W CONTRAST 2021 09:08:29 Manuel Grande [facility] COVID-19 (ID NOW RAPID TESTING) 2021 08:28:00 Manuel Grande [facility] COMP. METABOLIC PANEL ([id number]) 2021 08:26:00 Manuel Grande [facility] CBC WITH DIFF 2021 08:26:00 [facility] CONSENT/REFUSAL FOR DIAGNOSIS AND TREATMENT 2021 05:13:27 Doctor Unassigned, [place] [facility] POCT GLUCOSE (AUTOMATED) 2021-10-15 04:51:00 Amber Singh [facility] NOTICE OF PRIVACY PRACTICES 2021-10-15 04:43:48 Doctor Unassigned, [place] [facility] CONSENT/REFUSAL FOR DIAGNOSIS AND TREATMENT 2021-10-15 04:43:04 Doctor Unassigned, [place] [facility] Plan of Care Planned Activity Planned Date Details Comments Source Goal Plan of Care Note [code = 04674-6] Goal Plan of Care Note [code = 98233-5] Goal Plan of Care Note [code = 99676-5] Goal Plan of Care Note [code = 32587-6] Goal Plan of Care Note [code = 42019-0] Goal Plan of Care Note [code = 35872-4] Goal Plan of Care Note [code = 18023-3] Goal Plan of Care Note [code = 69591-9] Goal Plan of Care Note [code = 15893-6] Goal Plan of Care Note [code = 40300-0] Goal Plan of Care Note [code = 04262-7] Goal Plan of Care Note [code = 91762-9] Goal Plan of Care Note [code = 75889-4] Goal Plan of Care Note [code = 02142-2] Goal Plan of Care Note [code = 44021-5] Goal Plan of Care Note [code = 87038-3] Goal Plan of Care Note [code = 17759-9] Goal Plan of Care Note [code = 58784-6] Goal Plan of Care Note [code = 52704-0] Goal Plan of Care Note [code = 17944-8] Goal Plan of Care Note [code = 92588-8] Goal Plan of Care Note [code = 07765-7] Goal Plan of Care Note [code = 42376-4] Goal Plan of Care Note [code = 66491-8] Goal Plan of Care Note [code = 49915-1] Goal Plan of Care Note [code = 26212-4] Goal Plan of Care Note [code = 80992-2] Goal Plan of Care Note [code = 56107-8] Goal Plan of Care Note [code = 14877-4] Goal Plan of Care Note [code = 61174-3] Goal Plan of Care Note [code = 94905-1] Goal Plan of Care Note [code = 62332-1] Goal Plan of Care Note [code = 15445-7] Goal Plan of Care Note [code = 72612-9] Goal Plan of Care Note [code = 80088-8] Goal Plan of Care Note [code = 74345-8] Goal Plan of Care Note [code = 33575-2] Encounters Start Date/Time End Date/Time Encounter Type Admission Type Attending [facility] Facility Care Department Encounter ID Source 2021-12-27 09:28:51 2021-12-27 09:28:51 Outpatient [facility] [id number] 2021-11-15 16:31:00 2021-11-15 17:19:00 Emergency X JOSY [facility] ERT [id number] [facility] 2021-11-15 16:31:00 2021-11-15 17:19:00 Emergency Rodney Josy [facility] 1..840.114 350.1.13.10 4.2.7.2.686 [id number] [facility] 2021 00:13:00 2021 05:26:00 Emergency X MANUEL GRANDE [facility] ERT [id number] [facility] 2021 00:13:00 2021 05:26:00 Emergency Manuel [facility] 1..840.114 350.1.13.10 4.2.7.2.686 [id number] [facility] 2021-11-13 00:00:00 2021-11-13 00:00:00 Outpatient Visit [id number] 2021-10-24 00:00:00 2021-10-24 00:00:00 Outpatient Visit [id number] 2021-10-17 00:00:00 2021-10-17 00:00:00 Outpatient Visit [id number] 2021-10-14 23:53:00 2021-10-15 00:02:00 Emergency X AMBER SINGH [facility] ERT [id number] [facility] 2021-10-14 23:53:00 2021-10-15 00:02:00 Emergency Amber Singh [facility] [id number] 350.1.13.10 4.2.7.2.686 [id number] [facility] Results Test Description Test Time Test Comments Results Result Co mments Source LIPID [id number] 06:06:01* Test Item Value Reference Range Interpretation [...] SPECIMENS. FOR MOREINFORMATION, SEE CLIENT ANNOUNCEMENT AT [email or web address] RISK RATIO LDL/HDL (test code = 2237) 2.23 RATIO <3.55 COMPREHENSIVE METABOLIC [id number] 06:06:01* Test Item Value Reference Range Interpretation Comme nts GLUCOSE (test code = 2216) 200 MG/DL 70-99 H BUN (test code = 2207) 11 MG/DL 6-20 CREATININE (test code = 2213) 0.71 MG/DL 0.80-1.40 L eGFR (2020 CKD-EPI) (test code = ) 131 ML/MIN/1.73 >60 CALC BUN/CREAT (test code [...] G/DL 3.5-5.2 CALC GLOBULIN (test code = 0) 2.3 G/DL 1.9-3.7 CALC A/G RATIO (test [...] 24 U/L 9-50 ALT (test code = 9) 43 U/L 5-50 HEMOGLOBIN [id number] 06:36:50* Test Item Value Reference Range Interpretation Comme nts HEMOGLOBIN A1c (test code = 92827) 8.6 % 4.2-5.6 H [employer] GUIDELINES FOR HGB A1C: [...] OR LABORATORY CONSULTATION. CBC W/AUTO DIFF WITH [id number] 04:23:23* Test Item Value Reference Range Interpretation [...] = 1065) 0.0 /100 WBC'S See_Comment [Automated [employer] ge] The system which generated this result [...] 0.00-0.10 ABS NUCLEATED RBCS (test code = 49778) 0.00 K/UL 0.00-0.11 CBC WITH [id number] 09:05:00* Test Item Value Reference Range Interpretation [...] 34.8 g/dL 31.2-35 RDW-SD (test code = 15935-0) 38.3 fL 38.5-51.6 L RDW-CV (test code = 788-0) 11.9 % 12.1-15.4 L PLT (test code = 777-3) See_Comment [Automated message] The system which generated this result transmitted reference range: 150 - 328 10*3/?L. The reference range was not used to interpret this result as normal/abnormal. MPV (test code = 10630-5) 11.6 fL 9.8-13 NRBC/100 WBC (test code = 1019715462) See_Comment [Automated message] The system which generated this result transmitted reference range: 0.0 - 10.0 /100 WBCs. The reference range was not used to interpret this result as normal/abnormal. NRBC x10^3 (test code = 1637335602) See_Comment [Automated message] The system which generated this result transmitted reference range: 10*3/?L. The reference range was not used to interpret this result as normal/abnormal. GRAN MAT (NEUT) % (test code = 770-8) 79.8 % IMM GRAN % (test code = 3123724327) 0.40 % LYMPH % (test code = 736-9) 11.8 % MONO % (test code = 5905-5) 6.3 % EOS % (test code = 713-8) 1.4 % BASO % (test code = 706-2) 0.3 % GRAN MAT x10^3(ANC) (test code = 5991647066) 15.65 10*3/uL 1.99-6.95 H IMM GRAN x10^3 (test code = 8778273603) 0.08 10*3/uL 0-0.06 H LYMPH x10^3 (test code = 731-0) 2.31 10*3/uL 1.09-3.23 MONO x10^3 (test code = 742-7) 1.23 10*3/uL 0.36-1.02 H EOS x10^3 (test code = 711-2) 0.27 10*3/uL 0.06-0.53 BASO x10^3 (test code = 704-7) 0.05 10*3/uL 0.01-0.09 Lab Interpretation (test code = 21938-6) [facility] (83344)2021 08:49:12* Test Item Value Reference Range Interpretation Comme nts NA (test code = 8875706527) 135 mmol/L 135-145 K (test code = 8025016842) 4.1 mmol/L 3.5-5 CL (test code = 1304221702) 101 mmol/L 98-108 CO2 TOTAL (test code = 8209545562) 28 mmol/L 23-31 AGAP (test code = 5681391100) 2-16 BUN (test code = 4617944727) 13 mg/dL 7-23 GLUCOSE (test code = 7893285175) 212 mg/dL 70-110 H CREATININE (test code = 4745854281) 0.66 mg/dL 0.6-1.25 TOTAL BILI (test code = 5582763251) 0.6 mg/dL 0.1-1.1 CALCIUM (test code = 8204888449) 9.1 mg/dL 8.6-10.6 T PROTEIN (test code = 4693615976) 7.2 g/dL 6.3-8.2 ALBUMIN (test code = 0472744965) 4.4 g/dL 3.5-5 ALK PHOS (test code = 2008672728) 84 U/L 34-122 ALTv (test code = 1742-6) 41 U/L 5-50 AST(SGOT) (test code = 1808109558) 22 U/L 13-40 eGFR (test code = 3783250239) mL/min/1.73m2 EDENILSON (test code = EDENILSON) Association [...] imaging tests). Lab Interpretation (test code = 08735-5) [id number] 09:03:24* Test Item Value Reference Range Interpretation [facility] B-12 (test code = 2840) 370 PG/ML 200-950 VITAMIN D, 25 [id number] 06:22:29* Test Item Value Reference Range Interpretation Comme [facility] VITAMIN D, 25 OH (test code = [...] 30-100 UNLESS OTHERWISE INDICATED, ALL TESTING PERFORMED [facility] [address] [place] [address] AGRICULTURE TECHNICIAN: CARMELA PERLA M.D. CLIA NUMBER [id number] [facility] [place] [id number] COMPREHENSIVE METABOLIC [id number] 05:50:16* Test Item Value Reference Range Interpretation [facility] GLUCOSE (test code = 2217) 209 MG/DL 70-99 H BUN (test code = 2208) 14 MG/DL 6-20 CREATININE (test code = 2214) 0.77 MG/DL 0.80-1.40 L eGFR (2020 CKD-EPI) (test code = 65481) 129 ML/MIN/1.73 >60 CALC BUN/CREAT (test code = 2235) 18 RATIO 6-28 SODIUM (test code = 2231) 143 MEQ/L 133-146 POTASSIUM (test code = 2228) 4.8 MEQ/L 3.5-5.4 CHLORIDE (test code = 2215) 103 MEQ/L 95-107 CARBON DIOXIDE (test code = 2206) 28 MEQ/L 19-31 CALCIUM (test code = 2208) 9.9 MG/DL 8.5-10.5 PROTEIN, TOTAL (test code = 2228) 7.1 G/DL 6.1-8.3 ALBUMIN (test code = 1) 4.5 G/DL 3.5-5.2 CALC GLOBULIN (test code = 2240) 2.6 G/DL 1.9-3.7 CALC A/G RATIO (test code = 2233) 1.7 RATIO 1.0-2.6 BILIRUBIN, TOTAL (test code = 2206) 0.4 MG/DL See_Comment [Automated me ssage] The system which generated this result transmitted reference range: <=1.2. The reference range was not used to interpret this result as normal/abnormal. ALKALINE PHOSPHATASE (test code = 2203) 79 U/L 40-121 AST (test code = 2218) 26 U/L 9-50 ALT (test code = 2218) 71 U/L 5-50 H LIPID [id number] 05:50:16* Test Item Value Reference Range Interpretation Comme nts CHOLESTEROL (test code = 2210) 193 MG/DL <200 TRIGLYCERIDES (test code = 2) 84 MG/DL <150 HDL CHOLESTEROL (test code = 0) 46 MG/DL >39 CALC LDL CHOL (test code = 2236) 129 MG/DL <100 H NOTE: CALCULATED LDL IS BASED ON JAYNE-HERNANDEZ METHOD WHICHINCLUDES ADJUSTABLE TRIGLYCERIDE:VLDL CHOLESTEROL RATIO.THIS FACTOR VARIES BY MEASURED TRIGLYCERIDE AND NON-HDLCHOLESTEROL CONCENTRATIONS WITH INCREASED CALCULATED LDL SEENIN HIGHER TRIGLYCERIDE OR LOWER NON-HDL SPECIMENS. FOR MOREINFORMATION, SEE CLIENT ANNOUNCEMENT AT [email or web address] RISK RATIO LDL/HDL (test code = 2238) 2.80 RATIO <3.55 HEMOGLOBIN [id number] 03:58:35* Test Item Value Reference Range Interpretation Comme nts HEMOGLOBIN A1c (test code = 97858) 9.9 % 4.2-5.6 H [employer] GUIDELINES FOR HGB A1C: [...] OR LABORATORY CONSULTATION. CBC W/AUTO DIFF WITH [id number] 02:19:24* Test Item Value Reference Range Interpretation [...] = 1065) 0.0 /100 WBC'S See_Comment [Automated [employer] ge] The system which generated this result [...] 0.00-0.10 ABS NUCLEATED RBCS (test code = 41362) 0.00 K/UL 0.00-0.11 COMPREHENSIVE METABOLIC [id number] 00:00:00* Test Item Value Reference Range Interpretation Comme nts GLUCOSE (test code = 7) 209 MG/DL BUN (test code = 2207) 14 MG/DL CREATININE (test code = 2214) 0.77 MG/DL eGFR (2020 CKD-EPI) (test code = ) 129 ML/MIN/1.73 CALC BUN/CREAT (test code = 2235) 18 RATIO SODIUM (test code = 223) 143 MEQ/L POTASSIUM (test code = 2228) 4.8 MEQ/L CHLORIDE (test code = 2215) 103 MEQ/L CARBON DIOXIDE (test code = 2206) 28 MEQ/L CALCIUM (test code = 2209) 9.9 MG/DL PROTEIN, TOTAL (test code = 222) 7.1 G/DL ALBUMIN (test code = 2201) 4.5 G/DL CALC GLOBULIN (test code = 2240) 2.6 G/DL CALC A/G RATIO (test code = 2234) 1.7 RATIO BILIRUBIN, TOTAL (test code = 7) 0.4 MG/DL ALKALINE PHOSPHATASE (test code = 2204) 79 U/L AST (test code = 8) 26 U/L ALT (test code = 9) 71 U/L HEMOGLOBIN [id number] 00:00:00* Test Item Value Reference Range Interpretation [facility] HEMOGLOBIN A1c (test code = 81187) 9.9 % VITAMIN [id number] 00:00:00* Test Item Value Reference Range Interpretation [facility] VITAMIN B-12 (test code = 2840) 370 PG/ML VITAMIN D, 25 [id number] 00:00:00* Test Item Value Reference Range Interpretation [facility] VITAMIN D, 25 OH (test code = 4958) 20 NG/ML LIPID [id number] 00:00:00* Test Item Value Reference Range Interpretation [facility] CHOLESTEROL (test code = 0) 193 MG/DL TRIGLYCERIDES (test code = 2232) 84 MG/DL HDL CHOLESTEROL (test code = 2219) 46 MG/DL CALC LDL CHOL (test code = 2236) 129 MG/DL RISK RATIO LDL/HDL (test cod e = 2238) 2.80 RATIO CBC W/AUTO [id number] 00:00:00* Test Item Value Reference Range Interpretation [...] ABS NUCLEATED RBCS (test cod e = 15765) 0.00 K/UL COMPREHENSIVE METABOLIC [id number] 00:00:00* Test Item Value Reference Range Interpretation Comme nts GLUCOSE (test code = 2217) 209 MG/DL BUN (test code = 2208) 14 MG/DL CREATININE (test code = 2214) 0.77 MG/DL eGFR (2020 CKD-EPI) (test code = 87390) 129 ML/MIN/1.73 CALC BUN/CREAT (test code = [...] (test code = 2219) 71 U/L HEMOGLOBIN [id number] 00:00:00* Test Item Value Reference Range Interpretation [facility] HEMOGLOBIN A1c (test code = 94395) 9.9 % VITAMIN [id number] 00:00:00* Test Item Value Reference Range Interpretation [facility] VITAMIN B-12 (test code = 2840) 370 PG/ML VITAMIN D, 25 [id number] 00:00:00* Test Item Value Reference Range Interpretation [facility] VITAMIN D, 25 OH (test code = 4958) 20 NG/ML LIPID [id number] 00:00:00* Test Item Value Reference Range Interpretation Comme nts CHOLESTEROL (test code = 2210) 193 MG/DL TRIGLYCERIDES (test code = 2232) 84 MG/DL HDL CHOLESTEROL (test code = 2220) 46 MG/DL CALC LDL CHOL (test code = 2237) 129 MG/DL RISK RATIO LDL/HDL (test cod e = 2238) 2.80 RATIO CBC W/AUTO [id number] 00:00:00* Test Item Value Reference Range Interpretation [...] ABS NUCLEATED RBCS (test cod e = 88380) 0.00 K/UL POCT GLUCOSE (AUTOMATED)2021-10-15 04:54:46* Test Item Value Reference Range Interpretation Comme nts POCT GLU (test code = 4229015649) 168 mg/dL 70-110 H Lab Interpretation (test cod e = 52945-0) Abnormal [facility]"
[2023-11-11] MEDS ORDERED: LIDOCAINE 2% W/EPI 1:200,000 MPF 20 ML VIAL IM ONE (10:15)
[2023-11-11] MEDS ORDERED: DOXYCYCLINE 100 MG CAP PO ONE (11:02)
--- NOTE | 2023-11-11 11:02 | EDPHYS ---
Physician Documentation [facility] Name: Rd Kumar Age: 27 yrs Sex: Male : 1995 Arrival Date: 11/11/2023 Time: 09:45 Bed 12 Private MD: ED Physician Martin Sandoval HPI: 11/10 16:30 This 27 yrs old Male presents to ER via Ambulatory with complaints of Cyst - ms3 on buttock. 16:30 27-year-old male past medical history of diabetes, hypertension, pancreatitis presents ms3 to the emergency department for pilonidal cyst that is inflamed. Patient states he has been having discomfort for 3 days. The pain is worse with sitting. He notes he has had this drained prior.. Historical: - Allergies: 10:12 steroids; dd2 - PMHx: 10:12 diabetes mellitus; Hypertensive disorder; pancreatitis medication induced; dd2 - PSHx: 10:12 None; dd2 - Immunization history:: Adult Immunizations unknown. - Infectious Disease History:: Denies. - Social history:: Smoking status: Patient denies any tobacco usage or history of. ROS: 16:30 Constitutional: Negative for fever, and chills. Cardiovascular: Negative for chest ms3 pain, and palpitations. Respiratory: Negative for shortness of breath, cough, wheezing, and pleuritic chest pain, Abdomen/GI: Negative for abdominal pain, nausea, vomiting, diarrhea, and constipation, 16:30 Skin: Positive for abscess, Exam: 16:30 Constitutional: This is a well developed, well nourished patient who is awake, alert, ms3 and in no acute distress. Cardiovascular: Regular rate and rhythm with a normal S1 and S2. No gallops, murmurs, or rubs. Normal PMI, no JVD. No pulse deficits. Respiratory: Lungs have equal breath sounds bilaterally, clear to auscultation and percussion. No rales, rhonchi or wheezes noted. No increased work of breathing, no retractions or nasal flaring. Abdomen/GI: Soft, non-tender, with normal bowel sounds. No distension or tympany. No guarding or rebound. No evidence of tenderness throughout. 16:30 Skin: abscess, that is moderate sized, of the gluteal cleft, with fluctuance, that is moderate, with induration, with surrounding cellulitis, that is moderate, Vital Signs: 10:10 BP 162 / 98; Pulse 76; Resp 16; Temp 97.9(TE); Pulse Ox 94% ; Weight 140.61 kg; Height dd2 5 ft. 3 in. ; 10:10 Body Mass Index 54.91 (140.61 kg, 160.02 cm) dd2 Procedures: 11:02 I \T\ D: Incision and drainage was performed for an abscess of the right pilonidal cyst ms3 Prepped with alcohol, Anesthetized with ml's 2% Lidocaine with epinephrine. 4 ml's 2% Lidocaine with epinephrine. Incised with #11 blade. Drained large amount purulent fluid. Loculations removed. Abscess cavity explored. Packed with iodoform gauze, Dressing: sterile 4x4 gauze, the patient tolerated the procedure well. MDM: 10:39 Patient medically screened. ms3 16:30 Differential diagnosis: abscess, cellulitis, Pilonidal cyst. Data reviewed: vital ms3 signs, nurses notes, and as a result, I will discharge patient. I considered the following discharge prescriptions or medication management in the emergency department Medications were administered in the Emergency Department. See MAR. Counseling: I had a detailed discussion with the patient and/or guardian regarding the historical points, exam findings, and any diagnostic results supporting the discharge/admit diagnosis, the need for outpatient follow up, to return to the emergency department if symptoms worsen or persist or if there are any questions or concerns that arise at home. Special discussion: I discussed with the patient/guardian in detail that at this point there is no indication for admission to the hospital. It is understood, however, that if the symptoms persist or worsen the patient needs to return immediately for re-evaluation. ED course: Patient's pilonidal abscess incised and drained without complications. Patient to follow-up with Dr. Owen in 2 to 3 days. Patient understands and agrees with plan. All questions were answered. Return precautions discussed include worsening symptoms, or any other concerns. Administered Medications: 11:10 Drug: Doxycycline PO 100 mg PO once Route: PO; aa5 11:12 Follow up: Response: No adverse reaction; Medication administered at discharge. aa5 Disposition Summary: 11/11/23 11:01 Discharge Ordered Notes: Location: Home ms3 Condition: Stable ms3 Diagnosis - Pilonidal cyst with abscess ms3 Followup: ms3 - With: Dwight Owen MD - When: 2 - 3 days - Reason: Recheck today's complaints Discharge Instructions: - Discharge Summary Sheet ms3 - Pilonidal Cyst Drainage, Care After ms3 Forms: - Medication Reconciliation Form ms3 - Antibiotic Education ms3 - Prescription Opioid Use ms3 - Patient Portal Instructions ms3 - Leadership Thank You Letter ms3 Prescriptions: - Doxycycline Hyclate 100 mg Oral Tablet - take 1 tablet ORAL route every 12 hours; 20 tablet; Refills: 0, Product ms3 Selection Permitted Signatures: Erika Cesar, RN RN aa5 Martin Sandoval DO DO ms3 NILESH BENÍTEZ RN RN dd2
--- NOTE | 2023-11-11 11:02 | ER ---
Nurse's Notes [facility] Name: Rd Kumar Age: 27 yrs Sex: Male : 1995 Arrival Date: 11/11/2023 Time: 09:45 Bed 12 Private MD: Diagnosis: Pilonidal cyst with abscess Presentation: 11/10 10:10 Chief complaint: Patient states: Pt states cysts to middle of buttocks x 3 days. States dd2 he has the drained in the past. Coronavirus screen: At this time, the client does not indicate any symptoms associated with coronavirus-19. Ebola Screen: No symptoms or risks identified at this time. Initial Sepsis Screen: Does the patient meet any 2 criteria? No. Patient's initial sepsis screen is negative. Does the patient have a suspected source of infection? No. Patient's initial sepsis screen is negative. Risk Assessment: Do you want to hurt yourself or someone else? Patient reports no desire to harm self or others. Onset of symptoms is unknown. 10:10 Method Of Arrival: Ambulatory dd2 10:10 Acuity: VANESSA 3 dd2 Triage Assessment: 10:12 General: Appears uncomfortable, Behavior is calm, cooperative, appropriate for age. dd2 Pain: Complains of pain in gluteal cleft Pain currently is 10 out of 10 on a pain scale. Aggravated by weight bearing. Historical: - Allergies: 10:12 steroids; dd2 - PMHx: 10:12 diabetes mellitus; Hypertensive disorder; pancreatitis medication induced; dd2 - PSHx: 10:12 None; dd2 - Immunization history:: Adult Immunizations unknown. - Infectious Disease History:: Denies. - Social history:: Smoking status: Patient denies any tobacco usage or history of. Screenin:50 [facility] ED Fall Risk Assessment (Adult) History of falling in the last 3 months, aa5 including since admission No falls in past 3 months (0 pts) Confusion or Disorientation No (0 pts) Intoxicated or Sedated No (0 pts) Impaired Gait No (0 pts) Mobility Assist Device Used No (0 pt) Altered Elimination No (0 pt) Score/Fall Risk Level 0 - 2 = Low Risk Oriented to surroundings, Maintained a safe environment, Educated pt \T\ family on fall prevention, incl call for assistance when getting out of bed. Abuse screen: Denies threats or abuse. Nutritional screening: No deficits noted. Tuberculosis screening: No symptoms or risk factors identified. Assessment: 10:50 General: Appears comfortable, Behavior is calm, cooperative. Pain: Complains of pain in aa5 gluteal cleft. Neuro: Level of Consciousness is awake, alert, obeys commands, Oriented to person, place, time, situation. Cardiovascular: Patient's skin is warm and dry. Respiratory: Airway is patent Respiratory effort is even, unlabored, Respiratory pattern is regular, symmetrical. GI: No signs and/or symptoms were reported involving the gastrointestinal system. : No signs and/or symptoms were reported regarding the genitourinary system. EENT: No signs and/or symptoms were reported regarding the EENT system. Derm: Skin is pink, warm \T\ dry. Abscess located on right gluteal cleft is red, is raised. Musculoskeletal: Range of motion: intact in all extremities. 10:51 Reassessment: MD at bedside completing I\T\D. aa5 11:12 Neuro: Level of Consciousness is awake, alert, obeys commands, Oriented to person, aa5 place, time, situation. Respiratory: Airway is patent Respiratory effort is even, unlabored, Respiratory pattern is regular, symmetrical. Derm: Skin is pink, warm \T\ dry. Vital Signs: 10:10 BP 162 / 98; Pulse 76; Resp 16; Temp 97.9(TE); Pulse Ox 94% ; Weight 140.61 kg; Height dd2 5 ft. 3 in. ; 10:10 Body Mass Index 54.91 (140.61 kg, 160.02 cm) dd2 ED Course: 09:46 Patient arrived in ED. im 09:59 Martin Sandoval DO is Attending Physician. ms3 10:12 Triage completed. dd2 10:12 Arm band placed on right wrist. Patient placed in an exam room, on a stretcher, on dd2 pulse oximetry, Patient notified of wait time. 10:50 Patient has correct armband on for positive identification. Placed in gown. Bed in low aa5 position. Call light in reach. Side rails up X 1. 10:51 Assist provider with I \T\ D: of an abscess on right gluteal cleft Set up I\T\D tray. aa 5 Performed by Martin Sandoval DO. 10:57 Cesar, Erika, RN is Primary Nurse. aa5 11:01 Dwight Owen MD is Referral Physician. ms3 11:12 Patient did not have IV access during this emergency room visit. aa5 Administered Medications: 11:10 Drug: Doxycycline PO 100 mg PO once Route: PO; aa5 11:12 Follow up: Response: No adverse reaction; Medication administered at discharge. aa5 Medication: 10:59 VIS not applicable for this client. aa5 Outcome: 11:01 Discharge ordered by . ms3 11:12 Discharged to home ambulatory, aa5 11:12 Condition: stable 11:12 Discharge instructions given to patient, Instructed on discharge instructions, follow up and referral plans. medication usage, Demonstrated understanding of instructions, follow-up care, medications, Prescriptions given X 1, 11:13 Patient left the ED. aa5 Signatures: Erika Cesar, RN RN aa5 Martin Sandoval DO DO ms3 Anita Guerrier DIANA, RN RN dd2
[2023-11-11 11:22] VITALS: BP 162/98; TEMP 97.9; O2SAT 94
== END 2023-11-11 11:13 | disposition home or self-care (01) ==
LOC: ER 09:45
PROC: 0H98XZZ Drainage of Buttock Skin, External Approach (ICD-10-PCS; principal; 2023-11-11)
DX: L05.01 Pilonidal cyst with abscess (principal)
CPT/HCPCS: 99284

== ENCOUNTER 2024-06-24 19:29 | Emergency (ER) | payer OTHER, SELFPAY ==
--- OUTSIDE RECORDS SUMMARY | 2024-06-24 19:33 | XMS REPORT | Continuity of Care Document ---
Author Name Unknown Address [address] [facility] [address] [place] [address] [facility] Address [address] [facility] [address] [place] [address] Care Team Providers Care Bridge Operator Name Role Phone PCP, PATIENT DOES NOT HAVE A Primary Care Physic wilfred Unavailable KVNG XAVIER Attending Clinician Unavailab RITA Gonzalez Attending Clinician Unavailable LAB90 Attending Clinician Unavailable JOSY STEVENS Attending Clinician Unavailable Josy Freitas Attending Clinician [phone] MANUEL GRANDE Attending Clinician Unavailable Manuel Grande MD Attending Clinician [phone] AMBER SINGH Attending Clinician Unavailab Amber Duron DO Attending Clinician MANUEL GRANDE Admitting Clinician Unavailable Payers Payer Name Policy Type Policy Number Effective Date Expirati on Date Source [facility] FOCUS 9 [id number] 2024 00:00:00 [place] [id number] 2021 00:00:00 Problems Condition Name Condition Details Condition Category Status Onset Date Resolution Date Last Treatment Date Treating Clinician Comments Source 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) Disease Active 04-04 00:00: 00 Benita warner No known active problems No known active problems Disease [facility] Allergies, Adverse Reactions, Alerts Allergy Name Allergy Type Status Severity Reaction(s) Onset Date Inactive Date Treating Clinician Comments Source Steroids (Not Checked) Propensi ty to adverse reaction to drug Active 05-11 00:00: 00 NEUROMUS CULAR BLOCKERS , STEROIDA L Drug Class Active Unknown-Cmnt 2012-03 00:00: 00 [facility] Neuromus cular Blockers , Steroida l Propensi ty to adverse reaction s Active Unknown - See comments 2012-03 00:00: 00 [facility] steroid [Other] Propensi ty to adverse reaction s Active pancreati tis Benita warner Social History Social Habit Start Date Stop Date Quantity Comments Source Sexual orientation Peng elvi Padron - External Alcoholic beverage intake 2024-06-23 00:00:00 2024-06-23 00:00:00 Ex-drinker (finding) Benita Padron - External History of Social function 2024-06-23 00:00:00 2024-06-23 00:00:00 Benita Padron - External Sex 2022-08-19 21:37:42 2022-08-19 21:37:42 Male (finding) Benita Padron - External Exposure to SARS-CoV-2 (event) 2021-11-05 00:00:00 2021-11-15 16:25:[address] [facility] Sex assigned at 1995 00:00:00 1995 00:00:00 Benita Padron - External Smoking Status Start Date Stop Date Source Tobacco smoking consumption unknown [facility] Never smoked tobacco Benita Shah External Medications Ordered Medication Name Filled Medication Name Start Date Stop Date Current Medication? Ordering Clinician Indication Dosage Frequency Signature (SIG) Comments Components Source Doxycycline Hyclate 100 MG oral Tablet 06-23 00:00: 00 Yes [id number] 100mg Q.5D Take 1 tablet (100 mg total) by mouth 2 times daily Please take with food. Benita Saleha l Metformin HCl 500 MG oral Tablet 04-04 00:00: 00 Yes [id number] 3 1000mg Take 2 tablets (1,000 mg total) by mouth in the morning and 2 tablets (1,000 mg total) in the evening. Take with meals. Benita warner OZEMPIC (0.25 or 0.5 mg/dose) 2 mg/3 mL SQ Solution Pen-Injecto r 04-04 00:00: 00 Yes [id number] 3 .25mg Q1W Inject 0.25 mg into the skin once a week. Benita warner morpHINE (4 mg/mL) injection 4 mg 11-14 09:45: 00 11-14 09:40 :00 No 4mg 4 mg, Slow IV Push, ONCE, 1 dose, On Wed11/14/21 at 0445, STAT [facility] ketorolac (TORADOL) injection 15 mg 11-14 09:45: 00 11-14 09:39 :00 No 15mg 15 mg, Slow IV Push, ONCE, 1 dose, On Wed11/14/21 at 0445, BECKY [facility] iohexol (OMNIPAQUE 350 BULK-100 mL) injection 80 mL 11-14 09:02: 00 11-14 09:02 :00 No [id number] 80mL 80 mL, Intravenou s, ONCE, 1 dose, On Wed11/14/21 at 0415, Routine [facility] cefTRIAXone (ROCEPHIN) 1,000 mg in NaCl 0.9% (NS) 50 mL MINI-BAG 11-14 08:15: 00 11-14 08:56 :31 No 1000mg 1,000 mg, IV Piggyback, ONCE, 1 dose, On Wed11/14/21 at 0315, Administer over 30 Minutes, 50 mL
Reas on for Anti-Infec tive: Documented Infection< br>Documen lillie Infection Site: Skin / Soft Tissue
Duration of Therapy: Other (see Comments) [facility] sulfamethox azole-trime thoprim 800-160 mg per tablet 11-14 00:00: 00 Yes [id number] 1{tbl} Take 1 tablet by mouth in the morning and 1 tablet in the evening. [facility] cephALEXin (KEFLEX) 500 mg capsule 11-14 00:00: 00 11-25 04:59 :00 No [id number] 500mg Take 1 capsule by mouth 4 (four) times daily for 10 days. [facility] acetaminoph en-codeine 300-30 mg tablet 11-14 00:00: 00 11-22 04:59 :00 No [id number] 1{tbl} Take 1 tablet by mouth every 6 (six) hours as needed for Pain (scale 1-3) for up to 7 days. Indication s: acute pain [facility] TAKE 1 TABLET BY MOUTH [...] syrup 05-11 00:00: 00 No 10mg/5 mL erythromyci n (ILOTYCIN) 5 mg/gram (0.5 %) ophthalmic ointment 2012-03 00:00: 00 Yes .5[in_u s] Place 0.5 Inches in left eye 4 (four) times daily. Continue until you follow up with eye doctor. [facility] Vital Signs Vital Name Observation Time Observation Value Comments S ource Systolic blood pressure 2024-06-23 18:56:00 122 mm[Hg] Benita rivera - External Diastolic blood pressure 2024-06-23 18:56:00 78 mm[Hg] Benita rivera - External Heart rate 2024-06-23 18:56:00 86 /min Fish Padron - External Body temperature 2024-06-23 18:56:00 36.72 Shazia Benita Padron - External Respiratory rate 2024-06-23 18:56:00 20 /min Benita Padron - External Body height 2024-06-23 18:56:00 160 cm Leeanne Padron - External Body weight 2024-06-23 18:56:00 131.997 kg Leeanne Padron - External BMI 2024-06-23 18:56:00 51.55 kg/m2 Leeanne Padron - External Oxygen saturation in Arterial blood by Pulse oximetry 2024-06-23 18:56:00 96 /min Benita Pascual ld - External Systolic blood pressure 2024-03-30 16:39:00 110 mm[Hg] Benita Pascual ld - External Diastolic blood pressure 2024-03-30 16:39:00 62 mm[Hg] Benita Stewarto ld - External Heart rate 2024-03-30 16:39:00 73 /min Fish lopez Seybold - External Body temperature 2024-03-30 16:39:00 36.44 Shazia Benita Toneyybold - External Respiratory rate 2024-03-30 16:39:00 15 /min Benita Stewartold - External Body height 2024-03-30 16:39:00 160 cm Leeanne ey Seybold - External Body weight 2024-03-30 16:39:00 135.626 kg Leeanne ey Seybold - External BMI 2024-03-30 16:39:00 52.97 kg/m2 Leeanne jia Toneyybold - External Oxygen saturation in Arterial blood by Pulse oximetry 2024-03-30 16:39:00 97 /min Benita Pascual ld - External Systolic blood pressure 2021-11-15 21:28:00 127 mm[Hg] [facility] Diastolic blood pressure 2021-11-15 21:28:00 69 mm[Hg] [facility] Heart rate 2021-11-15 21:28:00 106 /min [facility] Body temperature 2021-11-15 21:28:[address] [facility] Respiratory rate 2021-11-15 21:28:00 16 /min [facility] Body height 2021-11-15 21:28:00 162.6 cm [facility] Body weight 2021-11-15 21:28:00 141.976 kg [facility] BMI 2021-11-15 21:28:00 53.73 kg/m2 [facility] Oxygen saturation in Arterial blood by Pulse oximetry 2021-11-15 21:28:00 96 /min [facility] Systolic blood pressure 2021 10:11:00 150 mm[Hg] [facility] Diastolic blood pressure 2021 10:11:00 90 mm[Hg] [facility] Heart rate 2021 10:11:00 94 /min Unive [facility] Respiratory rate 2021 10:11:00 18 /min [facility] Oxygen saturation in Arterial blood by Pulse oximetry 2021 10:11:00 94 /min [facility] Body temperature 2021 05:10:[address] [facility] Body weight 2021 05:10:00 143.79 kg [facility] BMI 2021 05:10:00 54.41 kg/m2 [facility] Diastolic blood pressure 2021-10-15 04:46:00 107 mm[Hg] [facility] Heart rate 2021-10-15 04:46:00 95 /min Unive [facility] Body temperature 2021-10-15 04:46:[address] [facility] Body height 2021-10-15 04:46:00 162.6 cm [facility] Body weight 2021-10-15 04:46:00 144.697 kg [facility] BMI 2021-10-15 04:46:00 54.76 kg/m2 [facility] Oxygen saturation in Arterial blood by Pulse oximetry 2021-10-15 04:46:00 97 /min [facility] Systolic blood pressure 2021-10-15 04:46:00 150 mm[Hg] [facility] BP Systolic 2021-11-13 13:26:00 117 mm[Hg] [...] DIAGNOSIS AND TREATMENT 2021-11-15 21:20:33 Doctor Unassigned, Nectar [facility] CT SOFT TISSUE NECK W CONTRAST 2021 09:08:[address] [facility] COVID-19 (ID NOW RAPID TESTING) 2021 08:28:[address] [facility] COMP. METABOLIC PANEL (11007) 2021 08:26:[address] [facility] CBC WITH DIFF 2021 08:26:00 Manuel Grande [facility] CONSENT/REFUSAL FOR DIAGNOSIS AND TREATMENT 2021 05:13:27 Doctor Unassigned, Nectar [facility] POCT GLUCOSE (AUTOMATED) 2021-10-15 04:51:[address] [facility] NOTICE OF PRIVACY PRACTICES 2021-10-15 04:43:48 Doctor Unassigned, Nectar [facility] CONSENT/REFUSAL FOR DIAGNOSIS AND TREATMENT 2021-10-15 04:43:04 Doctor Unassigned, Nectar [facility] Plan of Care Planned Activity Planned Date Details Comments Source Goal Plan of Care Note [code = 73630-8] Goal Plan of Care Note [code = 52009-9] Goal Plan of Care Note [code = 75879-4] Goal Plan of Care Note [code = 81484-0] Goal Plan of Care Note [code = 34966-8] Goal Plan of Care Note [code = 78300-0] Goal Plan of Care Note [code = 33194-3] Goal Plan of Care Note [code = 24551-5] Goal Plan of Care Note [code = 88161-8] Goal Plan of Care Note [code = 88667-6] Goal Plan of Care Note [code = 08215-8] Goal Plan of Care Note [code = 10793-8] Goal Plan of Care Note [code = 65455-4] Goal Plan of Care Note [code = 07833-2] Goal Plan of Care Note [code = 05037-2] Goal Plan of Care Note [code = 43186-0] Goal Plan of Care Note [code = 15974-8] Goal Plan of Care Note [code = 67723-5] Goal Plan of Care Note [code = 62580-3] Goal Plan of Care Note [code = 73758-5] Goal Plan of Care Note [code = 23912-9] Goal Plan of Care Note [code = 24825-0] Goal Plan of Care Note [code = 14245-8] Goal Plan of Care Note [code = 27565-4] Goal Plan of Care Note [code = 68267-8] Goal Plan of Care Note [code = 74817-8] Goal Plan of Care Note [code = 84875-4] Goal Plan of Care Note [code = 20367-4] Goal Plan of Care Note [code = 60097-9] Goal Plan of Care Note [code = 73674-7] Goal Plan of Care Note [code = 27195-4] Goal Plan of Care Note [code = 44616-9] Goal Plan of Care Note [code = 75054-0] Goal Plan of Care Note [code = 29641-0] Goal Plan of Care Note [code = 21853-8] Goal Plan of Care Note [code = 22247-9] Goal Plan of Care Note [code = 31356-4] Encounters Start Date/Time End Date/Time Encounter Type Admission Type Attending [facility] Care Department Encounter ID Source 2024-07-21 10:30:00 2024-07-21 10:30:00 Outpatient KVNG XAVIER [id number] [facility]ita [facility] 2024-07-14 16:00:00 2024-07-14 16:00:00 Outpatient RITA SWANSON [id number] Benita [facility] 2024-06-23 14:00:00 2024-06-23 14:00:00 Outpatient KVNG XAVIER [id number] Benita [facility] 2024-05-29 00:00:00 2024-05-29 00:00:00 Outpatient RITA SWANSON [id number] Benita [facility] 2024-05-15 00:00:00 2024-05-15 00:00:00 Outpatient RITA SWANSON [id number] Benita [facility] 2024-04-27 10:30:00 2024-04-27 10:30:00 Outpatient RITA SWANSON [id number] Benita [facility] 2024-04-04 00:00:00 2024-04-04 00:00:00 Outpatient RITA SWANSON [id number] Benita Padron 2024-04-04 00:00:00 2024-04-04 00:00:00 Outpatient RITA SWANSON [id number] Benita Padron 2024-03-31 15:45:00 2024-03-31 15:45:00 Outpatient BENITA RAY [id number] Benita Padron 2024-03-30 11:15:00 2024-03-30 11:15:00 Outpatient LAB90 BENITA RAY [id number] Benita Padron 2024-03-30 10:30:00 2024-03-30 10:30:00 Outpatient RITA SWANSON [id number] Benita Padron 2024-03-30 10:30:00 2024-03-30 10:30:00 Outpatient RITA SWANSON [facility] [id number] [facility] 2024-[facility]-30 00:00:00 2024-03-30 00:00:00 Outpatient RITA SWANSON [id number] Benita Padron 2024-03-30 00:00:00 2024-03-30 00:00:00 Outpatient BENITA RAY [id number] Benita Padron 2021-12-27 09:28:51 2021-12-27 09:28:51 Outpatient [facility] [id number] Lonnie Hale 2021-11-15 16:31:00 2021-11-15 17:19:00 Emergency X STEVENSMADHU [facility] ERT [id number] [facility] 2021-11-15 16:31:00 2021-11-15 17:19:00 Emergency Josy Stevens [facility] [id number] [facility] 2021 00:13:00 2021 05:26:00 Emergency X MANUEL GRANDE [facility] ERT [id number] [facility] 2021 00:13:00 2021 05:26:00 Emergency Manuel Grande [facility] [id number] [id number] [facility] 2021-11-13 00:00:00 2021-11-13 00:00:00 Outpatient Visit [id number] 2021-10-24 00:00:00 2021-10-24 00:00:00 Outpatient Visit [id number] 2021-10-17 00:00:00 2021-10-17 00:00:00 Outpatient Visit [id number] 2021-10-14 23:53:00 2021-10-15 00:02:00 Emergency AMBER HERNÁNDEZ [facility] ERT [id number] [facility] 2021-10-14 23:53:00 2021-10-15 00:02:00 Emergency Amber Singh [facility] [id number] [id number] [facility] Results Test Description Test Time Test Comments Results Result Co mments Source LIPID [id number] 06:06:01* Test Item Value Reference Range Interpretation [...] SPECIMENS. FOR MOREINFORMATION, SEE CLIENT ANNOUNCEMENT AT [email or web address] RISK RATIO LDL/HDL (test code = 223) 2.23 RATIO <3.55 COMPREHENSIVE METABOLIC [id number] 06:06:01* Test Item Value Reference Range Interpretation Comme nts GLUCOSE (test code = 2216) 200 MG/DL 70-99 H BUN (test code = 2207) 11 MG/DL 6-20 CREATININE (test code = 221) 0.71 MG/DL 0.80-1.40 L eGFR (2020 CKD-EPI) (test code = 25512) 131 ML/MIN/1.73 >60 CALC BUN/CREAT (test code = 2235) 15 RATIO 6-28 SODIUM (test code = 223) 144 MEQ/L 133-146 POTASSIUM (test code = 2228) 5.1 MEQ/L 3.5-5.4 CHLORIDE (test code = 2215) 102 MEQ/L 95-107 CARBON DIOXIDE (test code = 2206) 28 MEQ/L 19-31 CALCIUM (test code = 2209) 9.8 MG/DL 8.5-10.5 PROTEIN, TOTAL (test code = 222) 7.0 G/DL 6.1-8.3 ALBUMIN (test code = 220) 4.7 G/DL 3.5-5.2 CALC GLOBULIN (test code = 2240) 2.3 G/DL 1.9-3.7 CALC A/G RATIO (test code = 2234) 2.0 RATIO 1.0-2.6 BILIRUBIN, TOTAL (test code = 220) 0.4 MG/DL See_Comment [Automated me ssage] The system which generated this result transmitted reference range: <=1.2. The reference range was not used to interpret this result as normal/abnormal. ALKALINE PHOSPHATASE (test code = 4) 68 U/L 40-120 AST (test code = 2218) 24 U/L 9-50 ALT (test code = 2219) 43 U/L 5-50 HEMOGLOBIN [id number] 06:36:50* Test Item Value Reference Range Interpretation Comme nts HEMOGLOBIN A1c (test code = 21451) 8.6 % 4.2-5.6 H [employer] GUIDELINES FOR HGB A1C: [...] OR LABORATORY CONSULTATION. CBC W/AUTO DIFF WITH [id number] 04:23:23* Test Item Value Reference Range Interpretation [...] = 1065) 0.0 /100 WBC'S See_Comment [Automated [employer] ge] The system which generated this result [...] 0.00-0.10 ABS NUCLEATED RBCS (test code = 02506) 0.00 K/UL 0.00-0.11 CBC WITH [id number] 09:05:00* Test Item Value Reference Range Interpretation [...] 34.8 g/dL 31.2-35 RDW-SD (test code = 67373-0) 38.3 fL 38.5-51.6 L RDW-CV (test code = 788-0) 11.9 % 12.1-15.4 L PLT (test code = 777-3) See_Comment [Automated message] The system which generated this result transmitted reference range: 150 - 328 10*3/?L. The reference range was not used to interpret this result as normal/abnormal. MPV (test code = 94677-3) 11.6 fL 9.8-13 NRBC/100 WBC (test code = 1997074340) See_Comment [Automated message] The system which generated this result transmitted reference range: 0.0 - 10.0 /100 WBCs. The reference range was not used to interpret this result as normal/abnormal. NRBC x10^3 (test code = 3257873861) See_Comment [Automated message] The system which generated this result transmitted reference range: 10*3/?L. The reference range was not used to interpret this result as normal/abnormal. GRAN MAT (NEUT) % (test code = 770-8) 79.8 % IMM GRAN % (test code = 7155738808) 0.40 % LYMPH % (test code = 736-9) 11.8 % MONO % (test code = 5905-5) 6.3 % EOS % (test code = 713-8) 1.4 % BASO % (test code = 706-2) 0.3 % GRAN MAT x10^3(ANC) (test code = 2972690375) 15.65 10*3/uL 1.99-6.95 H IMM GRAN x10^3 (test code = 9204513096) 0.08 10*3/uL 0-0.06 H LYMPH x10^3 (test code = 731-0) 2.31 10*3/uL 1.09-3.23 MONO x10^3 (test code = 742-7) 1.23 10*3/uL 0.36-1.02 H EOS x10^3 (test code = 711-2) 0.27 10*3/uL 0.06-0.53 BASO x10^3 (test code = 704-7) 0.05 10*3/uL 0.01-0.09 Lab Interpretation (test code = 43689-5) Abnormal [facility]. METABOLIC PANEL (97318)2021 08:49:12* Test Item Value Reference Range Interpretation Comme nts NA (test code = 3641831880) 135 mmol/L 135-145 K (test code = 7458958320) 4.1 mmol/L 3.5-5 CL (test code = 3521879287) 101 mmol/L 98-108 CO2 TOTAL (test code = 3318326740) 28 mmol/L 23-31 AGAP (test code = 0720249380) 2-16 BUN (test code = 7823575774) 13 mg/dL 7-23 GLUCOSE (test code = 0192650362) 212 mg/dL 70-110 H CREATININE (test code = 6319739413) 0.66 mg/dL 0.6-1.25 TOTAL BILI (test code = 6703158468) 0.6 mg/dL 0.1-1.1 CALCIUM (test code = 8055724169) 9.1 mg/dL 8.6-10.6 T PROTEIN (test code = 3423681858) 7.2 g/dL 6.3-8.2 ALBUMIN (test code = 4339507980) 4.4 g/dL 3.5-5 ALK PHOS (test code = 1792284656) 84 U/L 34-122 ALTv (test code = 1742-6) 41 U/L 5-50 AST(SGOT) (test code = 0760837195) 22 U/L 13-40 eGFR (test code = 2622288973) mL/min/1.73m2 EDENILSON (test code = EDENILSON) Association [...] imaging tests). Lab Interpretation (test code = 55620-5) Abnormal [id number] 09:03:24* Test Item Value Reference Range Interpretation Comme [facility] VITAMIN B-12 (test code = 2840) 370 PG/ML 200-950 VITAMIN D, 25 [id number] 06:22:29* Test Item Value Reference Range Interpretation Comme [facility] VITAMIN D, 25 OH (test code [...] 30-100 UNLESS OTHERWISE INDICATED, ALL TESTING PERFORMED [facility] [address] [place] [address] QUALITY CONSULTANT: CARMELA PERLA M.D. CLIA NUMBER [id number] [facility] [place]. [id number] COMPREHENSIVE METABOLIC [id number] 05:50:16* Test Item Value Reference Range Interpretation Comme [facility] GLUCOSE (test code = 2217) 209 MG/DL 70-99 H BUN (test code = 2208) 14 MG/DL 6-20 CREATININE (test code = 2214) 0.77 MG/DL 0.80-1.40 L eGFR (2020 CKD-EPI) (test code = 35986) 129 ML/MIN/1.73 >60 CALC BUN/CREAT (test code = 2235) 18 RATIO 6-28 SODIUM (test code = 2231) 143 MEQ/L 133-146 POTASSIUM (test code = 2228) 4.8 MEQ/L 3.5-5.4 CHLORIDE (test code = 5) 103 MEQ/L 95-107 CARBON DIOXIDE (test code = 2205) 28 MEQ/L 19-31 CALCIUM (test code = 2208) 9.9 MG/DL 8.5-10.5 PROTEIN, TOTAL (test code = 2228) 7.1 G/DL 6.1-8.3 ALBUMIN (test code = 1) 4.5 G/DL 3.5-5.2 CALC GLOBULIN (test code = 0) 2.6 G/DL 1.9-3.7 CALC A/G RATIO (test code = 2233) 1.7 RATIO 1.0-2.6 BILIRUBIN, TOTAL (test code = 2206) 0.4 MG/DL See_Comment [Automated me ssage] The system which generated this result transmitted reference range: <=1.2. The reference range was not used to interpret this result as normal/abnormal. ALKALINE PHOSPHATASE (test code = 2203) 79 U/L 40-121 AST (test code = 2217) 26 U/L 9-50 ALT (test code = 2218) 71 U/L 5-50 H LIPID [id number] 05:50:16* Test Item Value Reference Range Interpretation Comme nts CHOLESTEROL (test code = 0) 193 MG/DL <200 TRIGLYCERIDES (test code = [...] SPECIMENS. FOR MOREINFORMATION, SEE CLIENT ANNOUNCEMENT AT [email or web address] /[email or web address] RISK RATIO LDL/HDL (test code = 2238) 2.80 RATIO <3.55 HEMOGLOBIN [id number] 03:58:35* Test Item Value Reference Range Interpretation Comme nts HEMOGLOBIN A1c (test code = 60981) 9.9 % 4.2-5.6 H [employer] GUIDELINES FOR HGB A1C: [...] OR LABORATORY CONSULTATION. CBC W/AUTO DIFF WITH [id number] 02:19:24* Test Item Value Reference Range Interpretation [...] = 1065) 0.0 /100 WBC'S See_Comment [Automated [employer] ge] The system which generated this result [...] 0.00-0.10 ABS NUCLEATED RBCS (test code = 78862) 0.00 K/UL 0.00-0.11 COMPREHENSIVE METABOLIC [id number] 00:00:00* Test Item Value Reference Range Interpretation Comme nts GLUCOSE (test code = 7) 209 MG/DL BUN (test code = 2208) 14 MG/DL CREATININE (test code = 2214) 0.77 MG/DL eGFR (2020 CKD-EPI) (test code = 20368) 129 ML/MIN/1.73 CALC BUN/CREAT (test code = [...] (test code = 2219) 71 U/L HEMOGLOBIN [id number] 00:00:00* Test Item Value Reference Range Interpretation Comme [facility] HEMOGLOBIN A1c (test code = 88206) 9.9 % VITAMIN [id number] 00:00:00* Test Item Value Reference Range Interpretation Comme [facility] VITAMIN B-12 (test code = 2840) 370 PG/ML VITAMIN D, 25 [id number] 00:00:00* Test Item Value Reference Range Interpretation Comme [facility] VITAMIN D, 25 OH (test code = 4958) 20 NG/ML LIPID [id number] 00:00:00* Test Item Value Reference Range Interpretation Comme [facility] CHOLESTEROL (test code = 2210) 193 MG/DL TRIGLYCERIDES (test code = 2232) 84 MG/DL HDL CHOLESTEROL (test code = 2220) 46 MG/DL CALC LDL CHOL (test code = 2237) 129 MG/DL RISK RATIO LDL/HDL (test cod e = 2238) 2.80 RATIO CBC W/AUTO [id number] 00:00:00* Test Item Value Reference Range Interpretation [...] ABS NUCLEATED RBCS (test cod e = 83494) 0.00 K/UL COMPREHENSIVE METABOLIC [id number] 00:00:00* Test Item Value Reference Range Interpretation Comme nts GLUCOSE (test code = 2217) 209 MG/DL BUN (test code = 2208) 14 MG/DL CREATININE (test code = 2214) 0.77 MG/DL eGFR (2020 CKD-EPI) (test code = 81780) 129 ML/MIN/1.73 CALC BUN/CREAT (test code = [...] 2204) 79 U/L AST (test code = 221) 26 U/L ALT (test code = 2219) 71 U/L HEMOGLOBIN [id number] 00:00:00* Test Item Value Reference Range Interpretation Comme [facility] HEMOGLOBIN A1c (test code = 04574) 9.9 % VITAMIN [id number] 00:00:00* Test Item Value Reference Range Interpretation Comme [facility] VITAMIN B-12 (test code = 2840) 370 PG/ML VITAMIN D, 25 [id number] 00:00:00* Test Item Value Reference Range Interpretation Comme [facility] VITAMIN D, 25 OH (test code = 4958) 20 NG/ML LIPID [id number] 00:00:00* Test Item Value Reference Range Interpretation Comme nts CHOLESTEROL (test code = 2210) 193 MG/DL TRIGLYCERIDES (test code = 2232) 84 MG/DL HDL CHOLESTEROL (test code = 2220) 46 MG/DL CALC LDL CHOL (test code = 2237) 129 MG/DL RISK RATIO LDL/HDL (test cod e = 2238) 2.80 RATIO CBC W/AUTO [id number] 00:00:00* Test Item Value Reference Range Interpretation [...] ABS NUCLEATED RBCS (test cod e = 46062) 0.00 K/UL POCT GLUCOSE (AUTOMATED)2021-10-15 04:54:46* Test Item Value Reference Range Interpretation Comme nts POCT GLU (test code = [id number]) 168 mg/dL 70-110 H Lab Interpretation (test cod e = 02170-9) Abnormal [facility] Notes Date/Time Note Provider Source 2024-06-23 13:59:02 Chief Complaint Patient presents with Follow-up Pilonidal cyst busted last wants medication for it Elisha Wagoner LVN T [facility] 2024-03-30 10:46:20 Chief Complaint Patient presents with Establish Care Previous PCP was at [facility]. Last annual was over a year. Hand Pain He hit a wall with right hand in February. Hand has a lump on outside of hand. He has limited doctor of medicine with that hand. He has no prior images or treatment. Linda May MA [facility]"
[2024-06-24] MEDS ORDERED: ONDANSETRON 4 MG/2 ML VIAL ONE (20:48)
[2024-06-24 20:56] LABS: Absolute Basophils 0.1 K/uL (0-0.5); Absolute Eosinophils 0.3 K/uL (0-0.5); Absolute Lymphocytes (CBC) 3.8 K/uL (0.7-4.9); Basophils % 0.5 % (0-1.3); Eosinophils % 2.1 % (0-4.4); Hematocrit 48.2 % (39.6-49.0); Hemoglobin 16.7 g/dL (13.6-17.9); Lymphocytes % 31.6 % (15.3-44.8); MCH 30.3 pg (27.0-35.0); MCHC 34.6 g/dL (32.0-36.0); MCV 87.5 fL (80-100); MPV 10.6 fL (7.6-11.3); Monocytes % 7.9 % (3.3-12.3); Neutrophils % 57.9 % (41.7-73.7); Platelets 287 thou/uL (152-406); RBC Red Blood Cell Count 5.51 M/uL (4.33-5.43); Red Cell Distribution Width 12.8 % (12.1-15.2)
[2024-06-24 21:05] LABS: Specific Gravity > 1.030 (1.005-1.030); Sqamous Epithelial <5 /HPF (None Seen); Urine Bacteria None Seen /HPF (<20); Urine Bilirubin NEGATIVE (Negative); Urine Blood Negative (Negative); Urine Clarity Clear (Clear); Urine Color Colorless (Yellow); Urine Crystals Unidentified Few /HPF (None Seen); Urine Culture Reflex Order NOT NEEDED; Urine Glucose 4+ (Over) (Negative); Urine Ketones NEGATIVE (Negative); Urine Microscopic Reflex YN ORDER UMIC; Urine Nitrite NEGATIVE (Negative); Urine Protein NEGATIVE (Negative); Urine RBC <5 /HPF (None Seen); Urine Urobilinogen Normal (Normal); Urine WBC <5 /HPF (<5); Urine pH 7.5 (5.0-7.0)
[2024-06-24 21:11] LABS: Albumin 3.4 g/dL (3.4-5.0); Albumin/Globulin Ratio 0.8 (1.1-1.8); Bilirubin Total 0.6 mg/dL (0.2-1.0); Globulin 4.3 g/dL (2.3-3.5); Protein, Total 7.7 g/dL (6.4-8.2)
[2024-06-24] MEDS ORDERED: INSULIN REGULAR (HUMAN) 100 UNIT/ML ONE (21:25)
[2024-06-24] MEDS ORDERED: KETOROLAC 30 MG/ML INJ ONE (21:25)
[2024-06-24] MEDS ORDERED: NA CHLORIDE 0.9% 1,000 ML ONE (21:26)
[2024-06-24] MEDS ORDERED: LIDOCAINE 4% PATCH ONE (22:14)
--- NOTE | 2024-06-24 23:06 | ER ---
Nurse's Notes [facility] Name: Rd Kumar Age: 28 yrs Sex: Male : 1995 Arrival Date: 06/24/2024 Time: 19:29 Bed 7 Private MD: Diagnosis: Low back pain;Diabetes mellitus due to underlying condition with hyperglycemia Presentation: 06/24 19:50 Chief complaint: Patient states: lower back pain since yesterday after lifting heavy lg3 box. one episode of vomiting this morning, dry mouth, headache, body aches, im dehydrated. Coronavirus screen: Client denies travel out of the [place] in the last 14 days. At this time, the client does not indicate any symptoms associated with coronavirus-19. Ebola Screen: No symptoms or risks identified at this time. Initial Sepsis Screen: Does the patient meet any 2 criteria? No. Patient's initial sepsis screen is negative. Does the patient have a suspected source of infection? No. Patient's initial sepsis screen is negative. Risk Assessment: Do you want to hurt yourself or someone else? Patient reports no desire to harm self or others. Onset of symptoms was June 23, 2024. 19:50 Method Of Arrival: Ambulatory lg3 19:50 Acuity: VANESSA 3 lg3 Triage Assessment: 19:56 General: Appears in no apparent distress. uncomfortable, Behavior is calm, cooperative. lg3 Pain: Complains of pain in low back area. EENT: No deficits noted. No signs and/or symptoms were reported regarding the EENT system. Neuro: No deficits noted. Gan Agitation-Sedation Scale (RASS): 0 - Alert and Calm Level of Consciousness is awake, alert, obeys commands, Oriented to person, place, time, situation. Cardiovascular: No deficits noted. Denies chest pain, shortness of breath, Capillary refill < 3 seconds Clubbing of nail beds is absent JVD is absent Patient's skin is warm and dry. Respiratory: No deficits noted. Airway is patent Respiratory effort is even, unlabored, Respiratory pattern is regular, symmetrical. GI: No deficits noted. Abdomen is round non-distended, obese, Reports dry mouth. : No signs and/or symptoms were reported regarding the genitourinary system. Derm: No deficits noted. No signs and/or symptoms reported regarding the dermatologic system. Skin is intact, is healthy with good turgor, Skin is dry, Skin is normal, Skin temperature is warm. Musculoskeletal: No deficits noted. Circulation, motion, and sensation intact. Range of motion: intact in all extremities, Reports pain in low back area. Historical: - Allergies: 19:56 steroids; lg3 - Home Meds: 19:56 Metformin Oral [Active]; Lisinopril Oral [Active]; lg3 - PMHx: 19:56 diabetes mellitus; Hypertensive disorder; pancreatitis medication induced; lg3 - PSHx: 19:56 None; lg3 - Immunization history:: Adult Immunizations up to date. - Infectious Disease History:: Denies. - Social history:: Smoking status: Patient denies any tobacco usage or history of. Patient/guardian denies using alcohol, street drugs. Screenin:28 [facility] ED Fall Risk Assessment (Adult) History of falling in the last 3 months, al5 including since admission No falls in past 3 months (0 pts) Confusion or Disorientation No (0 pts) Intoxicated or Sedated No (0 pts) Impaired Gait No (0 pts) Mobility Assist Device Used No (0 pt) Altered Elimination No (0 pt) Score/Fall Risk Level 0 - 2 = Low Risk Oriented to surroundings, Maintained a safe environment, Hourly rounding (assess needs \T\ fall precautionary measures) done. Abuse screen: Denies threats or abuse. Denies injuries from another. Nutritional screening: No deficits noted. Tuberculosis screening: No symptoms or risk factors identified. Assessment: 20:19 General: Appears in no apparent distress. uncomfortable, Behavior is calm, cooperative. al5 Pain: Complains of pain in low back area. Neuro: Level of Consciousness is awake, alert, obeys commands, Oriented to person, place, time, situation. Cardiovascular: Capillary refill < 3 seconds Patient's skin is warm and dry. Respiratory: Airway is patent Respiratory effort is even, unlabored, Respiratory pattern is regular, symmetrical. GI: Abdomen is non-distended, obese. : Reports pain in lower back. EENT: No signs and/or symptoms were reported regarding the EENT system. Derm: Skin is intact, is healthy with good turgor, Skin is pink, warm \T\ dry. normal. Musculoskeletal: No signs and/or symptoms reported regarding the musculoskeletal system. 22:24 Reassessment: Patient appears in no apparent distress at this time. No changes from vc1 previously documented assessment. Patient and/or family updated on plan of care and expected duration. Pain level reassessed. Patient is alert, oriented x 3, equal unlabored respirations, skin warm/dry/pink. 23:26 Reassessment: Patient appears in no apparent distress at this time. Patient and/or al5 family updated on plan of care and expected duration. Pain level reassessed. Patient is alert, oriented x 3, equal unlabored respirations, skin warm/dry/pink. Patient states feeling better. Patient states symptoms have improved. Vital Signs: 19:50 BP 143 / 99; Pulse 106; Resp 16 S; Temp 98.5(O); Pulse Ox 96% on R/A; Weight 132 kg lg3 (R); Height 5 ft. 3 in. (R); Pain 7/10; 21:00 BP 129 / 91; Pulse 85; Resp 19; Pulse Ox 99% ; vc1 21:30 BP 144 / 88; Pulse 87; Resp 22; Pulse Ox 98% ; al5 22:00 BP 123 / 69; Pulse 76; Resp 17; Pulse Ox 98% ; vc1 22:30 BP 127 / 79; Pulse 71; Resp 18; Pulse Ox 96% ; al5 23:00 BP 135 / 81; Pulse 60; Resp 16; Pulse Ox 96% ; al5 23:15 BP 117 / 69; Pulse 65; Resp 16; Pulse Ox 98% ; al5 19:50 Body Mass Index 51.55 (132.00 kg, 160.02 cm) lg3 19:50 Pain Scale: Adult lg3 ED Course: 19:34 Patient arrived in ED. gm2 19:37 Matteo Dunn PA is PHCP. cp 19:37 Carrington Oakley MD is Attending Physician. cp 19:56 Triage completed. lg3 19:56 Arm band placed on right wrist. lg3 20:17 EKG done, by ED staff, reviewed by Matteo APPIAH. mm11 20:19 Rosita Mata, BLADE is Primary Nurse. al5 20:28 Patient has correct armband on for positive identification. Bed in low position. Call al5 light in reach. Side rails up X2. Provided Education on: plan of care. 20:28 No provider procedures requiring assistance completed. Inserted saline lock: 20 gauge al5 in right antecubital area, using aseptic technique. Blood collected. Flushed with 10 mL NS. 23:27 IV discontinued, intact, bleeding controlled, No redness/swelling at site. Pressure al5 dressing applied. Administered Medications: 20:55 Drug: Ondansetron IVP 4 mg IVP once; over 2 minutes Route: IVP; Site: right antecubital;vc1 23:27 Follow up: Response: No adverse reaction; Nausea is decreased al5 21:31 Drug: Ketorolac IVP 30 mg IVP once Route: IVP; Site: right antecubital; vc1 23:27 Follow up: Response: No adverse reaction; Pain is decreased al5 21:31 Drug: Insulin Regular Human Sub-Q 5 units Sub-Q once {Co-Signature: lg3 (Flora Miranda vc1 RN).} Route: Sub-Q; Site: right upper arm; 23:27 Follow up: Response: No adverse reaction; Blood sugar is lowered al5 21:32 Drug: NS 0.9% IV 1000 ml IV at 1000 ml once; to be given as a bolus over 60 minutes vc1 Route: IV; Rate: 1000 ml; Site: right antecubital; 23:27 Follow up: Response: No adverse reaction; IV Status: Completed infusion; IV Intake: al5 1000ml 22:17 Drug: Lidoderm Topical Patch 5 % (700 mg/patch) 1 patches Topical once; leave on for 12 br2 hours; cover most painful area; may cut into smaller pieces Route: Topical; Site: affected area; 23:27 Follow up: Response: No adverse reaction; Pain is decreased al5 Medication: 20:28 VIS not applicable for this client. al5 Point of Care Testing: Blood Glucose: 20:54 Blood Glucose: 346 mg/dL; vc1 Ranges: Intake: 23:27 IV: 1000ml; Total: 1000ml. al5 Outcome: 23:06 Discharge ordered by . fady 23:28 Discharged to home ambulatory, al5 23:28 Condition: good 23:28 Discharge instructions given to patient, Instructed on discharge instructions, follow up and referral plans. medication usage, Demonstrated understanding of instructions, follow-up care, medications, Prescriptions given X 2, 23:30 Patient left the ED. al5 Signatures: Matteo Dunn PA PA cp Able, Lacie, RN RN lg3 Steffanie Abrams, RN RN vc1 Ciara Jolly gm2 Rosita Mata RN RN al5 Monica Ramos RN RN br2 [place] mm11 Flora Miranda RN lg3
--- NOTE | 2024-06-24 23:06 | EDPHYS ---
Physician Documentation [facility] Name: Rd Kumar Age: 28 yrs Sex: Male : 1995 Arrival Date: 06/24/2024 Time: 19:29 Bed 7 Private MD: ED Physician Carrington Oakley HPI: 06/24 20:45 This 28 yrs old Male presents to ER via Ambulatory with complaints of cp Nausea/Vomiting, Low Back Pain, Chills. 20:45 The patient presents to the emergency department with nausea, that is moderate, cp vomiting, that is intermittent. Onset: The symptoms/episode began/occurred this morning. 20:45 Associated signs and symptoms: Pertinent positives: lower back pain since yesterday. cp lifted heavy pipes at work and instead of using legs to lift, lifted with his back. Severity of symptoms: in the emergency department the symptoms are unchanged despite home interventions. Historical: - Allergies: 19:56 steroids; lg3 - Home Meds: 19:56 Metformin Oral [Active]; Lisinopril Oral [Active]; lg3 - PMHx: 19:56 diabetes mellitus; Hypertensive disorder; pancreatitis medication induced; lg3 - PSHx: 19:56 None; lg3 - Immunization history:: Adult Immunizations up to date. - Infectious Disease History:: Denies. - Social history:: Smoking status: Patient denies any tobacco usage or history of. Patient/guardian denies using alcohol, street drugs. ROS: 20:50 Constitutional: Negative for body aches, chills, fever, poor PO intake, cp 20:50 Eyes: Negative for injury, pain, redness, and discharge, cp 20:50 ENT: Negative for drainage from ear(s), ear pain, sore throat, difficulty swallowing, difficulty handling secretions, 20:50 Cardiovascular: Negative for chest pain, edema, palpitations, 20:50 Respiratory: Negative for cough, shortness of breath, wheezing, 20:50 Abdomen/GI: Positive for nausea, vomiting, Negative for abdominal pain, diarrhea, constipation, bowel incontinence, 20:50 Back: Positive for low back pain, 20:50 : Positive for urinary frequency, Negative for hematuria, burning with urination, bladder incontinence, testicular pain 20:50 Neuro: Negative for altered mental status, dizziness, headache, numbness, weakness, 20:50 All other systems are negative, Exam: 20:55 Constitutional: The patient appears in no acute distress, alert, awake, non-toxic, well cp developed, well nourished, obese, 20:55 Head/Face: Normocephalic, atraumatic. cp 20:55 Eyes: Periorbital structures: appear normal, Conjunctiva: normal, no exudate, no injection, Sclera: no appreciated abnormality, Lids and lashes: appear normal, bilaterally, 20:55 ENT: External ear(s): are unremarkable, Nose: is normal, Mouth: Lips: moist, Oral mucosa: moist, Posterior pharynx: Airway: no evidence of obstruction, patent, 20:55 Neck: ROM/movement: is normal, is supple, without pain, no range of motions limitations, 20:55 Chest/axilla: Inspection: normal, 20:55 Cardiovascular: Rate: tachycardic, Rhythm: regular, Edema: is not appreciated, JVD: is not appreciated, 20:55 Respiratory: the patient does not display signs of respiratory distress, Respirations: normal, no use of accessory muscles, no retractions, labored breathing, is not present, Breath sounds: are clear throughout, no decreased breath sounds, no stridor, no wheezing, 20:55 Abdomen/GI: Inspection: obese Bowel sounds: active, all quadrants, Palpation: abdomen is soft and non-tender, in all quadrants, rebound tenderness, is not appreciated, involuntary guarding, is not appreciated, 20:55 Back: pain, that is moderate, of the low back area, ROM is painful, with all movement, Straight leg raises: of both lower extremities does not illicit pain, 20:55 Neuro: Orientation: to person, place \T\ time. Mentation: is normal, Motor: moves all fours, strength is normal, Sensation: is normal, Gait: is steady, Deep tendon reflexes are 2+ (normal) in the right patellar, right Achilles, left patellar and left Achilles, 21:18 ECG was reviewed by the Attending Physician. cp Vital Signs: 19:50 BP 143 / 99; Pulse 106; Resp 16 S; Temp 98.5(O); Pulse Ox 96% on R/A; Weight 132 kg lg3 (R); Height 5 ft. 3 in. (R); Pain 7/10; 21:00 BP 129 / 91; Pulse 85; Resp 19; Pulse Ox 99% ; vc1 21:30 BP 144 / 88; Pulse 87; Resp 22; Pulse Ox 98% ; al5 22:00 BP 123 / 69; Pulse 76; Resp 17; Pulse Ox 98% ; vc1 22:30 BP 127 / 79; Pulse 71; Resp 18; Pulse Ox 96% ; al5 23:00 BP 135 / 81; Pulse 60; Resp 16; Pulse Ox 96% ; al5 23:15 BP 117 / 69; Pulse 65; Resp 16; Pulse Ox 98% ; al5 19:50 Body Mass Index 51.55 (132.00 kg, 160.02 cm) lg3 19:50 Pain Scale: Adult lg3 MDM: 20:01 Medical Screening Exam initiated cp 23:05 Data reviewed: vital signs, nurses notes, lab test result(s), and as a result, I will cp discharge patient. 23:05 Differential diagnosis: pancreatitis, lumbar strain, uti. I considered the following cp discharge prescriptions or medication management in the emergency department Medications were administered in the Emergency Department. See MAR. Care significantly affected by the following chronic conditions: Diabetes, Obesity. Counseling: I had a detailed discussion with the patient and/or guardian regarding the historical points, exam findings, and any diagnostic results supporting the discharge/admit diagnosis, lab results, the need for outpatient follow up, a family practitioner, to return to the emergency department if symptoms worsen or persist or if there are any questions or concerns that arise at home. Response to treatment: the patient's symptoms have markedly improved after treatment, and as a result, I will discharge patient. 06/24 20:41 Order name: CBC with Diff; Complete Time: 21:56 cp 06/24 21:56 Interpretation: Normal except: WBC 12.10; RBC 5.51. cp 06/24 20:41 Order name: CMP; Complete Time: 21:56 cp 06/24 21:57 Interpretation: Abnormal: GLUC 395; ALT 89; GLOB 4.3; A/G 0.8. cp 06/24 20:41 Order name: Lipase; Complete Time: 21:56 cp 06/24 20:41 Order name: Urinalysis w/ reflexes; Complete Time: 21:56 cp 06/24 21:02 Order name: Glucose, Ancillary Testing; Complete Time: 21:56 EDMS 06/24 21:04 Order name: Glucose, Ancillary Testing EDDC 06/24 23:13 Order name: Glucose, Ancillary Testing EDDC 06/24 20:41 Order name: Accucheck Blood Glucose; Complete Time: 20:55 cp 06/24 20:41 Order name: IV Saline Lock; Complete Time: 20:48 cp 06/24 20:41 Order name: Labs collected and sent; Complete Time: 20:48 cp EC:18 Rate is 104 beats/min. Rhythm is regular. ND interval is normal. QRS interval is cp normal. QT interval is normal. T waves are Inverted in lead aVR. Interpreted by me. Reviewed by me. Administered Medications: 20:55 Drug: Ondansetron IVP 4 mg IVP once; over 2 minutes Route: IVP; Site: right antecubital;vc1 23:27 Follow up: Response: No adverse reaction; Nausea is decreased al5 21:31 Drug: Ketorolac IVP 30 mg IVP once Route: IVP; Site: right antecubital; vc1 23:27 Follow up: Response: No adverse reaction; Pain is decreased al5 21:31 Drug: Insulin Regular Human Sub-Q 5 units Sub-Q once {Co-Signature: lg3 (Flora Miranda vc1 RN).} Route: Sub-Q; Site: right upper arm; 23:27 Follow up: Response: No adverse reaction; Blood sugar is lowered al5 21:32 Drug: NS 0.9% IV 1000 ml IV at 1000 ml once; to be given as a bolus over 60 minutes vc1 Route: IV; Rate: 1000 ml; Site: right antecubital; 23:27 Follow up: Response: No adverse reaction; IV Status: Completed infusion; IV Intake: al5 1000ml 22:17 Drug: Lidoderm Topical Patch 5 % (700 mg/patch) 1 patches Topical once; leave on for 12 br2 hours; cover most painful area; may cut into smaller pieces Route: Topical; Site: affected area; 23:27 Follow up: Response: No adverse reaction; Pain is decreased al5 Point of Care Testing: Blood Glucose: 20:54 Blood Glucose: 346 mg/dL; vc1 Ranges: Critical Glucose Levels:Adult <50 mg/dl or >400 mg/dl <40 mg/dl or >180 mg/dl Disposition: 06/25 20:33 Co-signature as Attending Physician, Carrington Oakley MD I agree with the assessment sp4 and plan of care. I reviewed the patient's care provided by the Advanced Practice Provider and agree with the diagnosis and treatment plan. Disposition Summary: 06/24/24 23:06 Discharge Ordered Notes: Location: Home cp Problem: new cp Symptoms: have improved cp Condition: Stable cp Diagnosis - Low back pain cp - Diabetes mellitus due to underlying condition with hyperglycemia cp Followup: cp - With: Private Physician - When: 5 - 6 days - Reason: Recheck today's complaints Discharge Instructions: - Discharge Summary Sheet cp - Acute Back Pain, Adult cp - Hyperglycemia cp - Blood Glucose Monitoring, Adult cp - Diabetes Mellitus and Nutrition, Adult cp - Heat Therapy cp - Back Exercises cp Forms: - Medication Reconciliation Form cp - Antibiotic Education cp - Prescription Opioid Use cp - Patient Portal Instructions cp - Leadership Thank You Letter cp - Work release form al5 Prescriptions: - Anaprox DS 550 mg Oral Tablet - take 1 tablet ORAL route every 12 hours As needed; 20 tablet; Refills: 0, cp Product Selection Permitted - methocarbamol 750 mg Oral tablet - take 1 tablet ORAL route 3 times per day; 30 tablet; Refills: 0, Product cp Selection Permitted Signatures: Dispatcher [employer] EDMS Matteo Dunn PA PA cp Able, Lacie, RN RN lg3 Steffanie Abrams RN RN vc1 Carrington Oakley MD MD sp4 Monica Ramos RN RN br2 Rosita Mata RN al5 Flora Miranda RN lg3
[2024-06-24 23:34] VITALS: TEMP 98.5
[2024-06-24 23:44] VITALS: BP 117/69; O2SAT 98
== END 2024-06-24 23:30 | disposition home or self-care (01) ==
LOC: ER 19:29
DX: M54.50 Low back pain, unspecified (principal); E11.65 Type 2 diabetes mellitus with hyperglycemia; I10 Essential (primary) hypertension
CPT/HCPCS: 85025; 81001; 36415; 82947 ×2; 83690; 80053; J2003; J2405; J1815; J7030; 93005; 96361; 96372; 96374; 96375; 99284